=== PATIENT | male | born 1960 | race Caucasian/White ===

== ENCOUNTER 2017-01-19 10:07 | Observation (INO) ==
[2017-01-19 11:03] LABS: Basophils % 0.2 %; Eosinophils % 0.3 %; Hematocrit 27.9 % (37.5-50.1); Hemoglobin 8.4 g/dL (12.9-16.9); Immature Granulocytes % 0.6 % (0-4); Lymphocytes # 0.7 K/mcL (0.6-4.6); Lymphocytes % 6.3 %; Mean Corpuscular HGB Conc 30.1 g/dL (31.6-35.5); Mean Corpuscular Hemoglobin 29.8 pg (28.0-33.3); Mean Corpuscular Volume 98.9 fL (83.0-100.0); Mean Platelet Volume 11.7 fL (9.4-12.4); Monocytes % 9.9 %; Neutrophils # 8.5 K/mcL (1.6-8.9); Platelet Count 285 K/mcL (140-400); Red Blood Count 2.82 M/mcL (4.19-5.50); Red Cell Distribution Width 20.3 % (11.5-14.5); Segmented Neutrophils % 82.7 %
[2017-01-19 11:12] LABS: INR 1.5; Prothrombin Time 16.7 Seconds (9.4-12.1)
[2017-01-19 11:14] LABS: Activated Partial Thrombo Time 34.9 Seconds (26.0-36.0)
--- NOTE | 2017-01-19 11:14 | Emergency Department Note ---
Disposition Clinical Impression: Rectal bleeding, Weakness generalized, Dehydration, Blood loss anemia Disposition: Admitted As Inpatient Condition: Fair Referrals: Vladimir José MD [Primary Care Provider] - Forms: Work/School Release, ED Satisfaction Letter Time of Disposition: 12:50 General Adult HPI - General Chief complaint: ED Abdominal Pain Stated complaint: abd pain, hematuria Source: patient, EMS Limitations: no limitations Nursing Notes Reviewed: Yes Vital Signs Reviewed: Yes - History of Present Illness HPI Narrative: 56-year-old male presents to the emergency department with blood in his stool. 3 weeks ago he had a fistula repair that went from his colon to bladder at [facility]. Today they noticed blood in his stool. He is currently at [facility]. Patient denies any abdominal pain. He reports having a Gooden catheter until about 3 days ago and ever since they removed it he has felt generally weak but no other symptoms. He has not had any vomiting, new abdominal pain or fevers at home. He denies any cough or respiratory complaints. Denies any rectal pain or penile pain. Denies any headache or neck pain. Patient reports history of gallbladder removal and multiple hernia repairs. He reports when they went in to fix his fistula may also did some procedure on his colon but they are unsure what it was for. He has no history of cancer. He is on Coumadin due to a aortic valve replacement. He has been taking his Coumadin. Pain Scale: 4 - Related Data Home Medications Medication Instructions Recorded Confirmed Aspirin [Adult Low Dose Aspirin EC] 81 mg PO 12/06/15 Blood Pressure Pills 12/06/15 Furosemide [Lasix] 12/06/15 Previous Rx's Medication Instructions Recorded Benzonatate [Tessalon] 200 mg PO TID PRN #30 capsule 12/06/15 GuaiFENesin ER [Mucinex] 1,200 mg PO BID #20 tbbp.12hr 12/06/15 cephALEXin [Keflex] 500 mg PO QID #40 capsule 12/06/15 Albuterol Sulfate [Albuterol 2 puff IH Q4HR PRN #1 unit 12/14/15 Inhaler] predniSONE [Prednisone] 40 mg PO DAILY #10 tablet 12/14/15 Erythromycin OPTH Oint 0.5 inch RIGHT EYE QID 7 Days 02/23/16 [Erythromycin] Allergies Allergy/AdvReac Type Severity Reaction Status Date / Time No Known Allergies Allergy Verified 12/06/15 10:21 All systems ED: reviewed and negative except as stated. Constitutional: Denies: fever, chills Cardiovascular: Denies: chest pain Respiratory: Denies: cough, dyspnea Gastrointestinal: Reports: abdominal pain (Occasional, not currently), hematochezia. Denies: nausea, vomiting Genitourinary: Denies: urgency, dysuria Neurological: Denies: headache, weakness, numbness Past Medical History - Past Medical History Attestation: Yes The following information was validated with the patient. Medical history: Reports: CHF, coronary artery disease, CVA, renal disease, other Surgical history: Reports: heart valve replacement (mechanical valve) Psychiatric history: Reports: no psych history - Social History Smoking Status: Never smoker Smokeless Tobacco Status: No Alcohol use: Reports: none Drug use: Reports: none Physical Exam General: Chronically ill-appearing male, resting comfortably in bed Cardiovascular: Regular rate and rhythm. S1, S2. No murmurs, rubs or gallops. Respiratory: Mild coarse breath sounds bilaterally. No respiratory distress. No coughing Abdomen: Abdomen is soft without any guarding, rebound or rigidity. His midline incision is well-healed with a scab without any drainage, discharge or erythema. Abdomen is slightly distended but nontender. He has other previous surgical incisions that are well healed and old. No palpable hernias. Eyes: Conjunctiva clear but do appear pale HENT: Dry mucous membranes but no other abnormalities. Poor dentition Neuro: Patient is able to lift his legs off the bed without any weakness or asymmetry. Normal and symmetric upper extremity strength throughout. Alert and oriented 3 Musculoskeletal: No joint tenderness or swelling Skin: Skin appears pale. Dry. No pathologic lesions. A small amount of bruising on his abdomen likely from Lovenox. Psych: Appropriate - General Limitations: no limitations General appearance: alert, in no apparent distress Course - Reevaluation(s) Reevaluation #1: D/W Dr. Peterson and he agrees to admit for serial H/H and monitor bleeding. Time: 12:47 Vital Signs Temperature 97.9 F 01/19/17 10:10 Pulse Rate 60 01/19/17 10:10 Respiratory Rate 20 01/19/17 10:10 Blood Pressure 121/73 01/19/17 10:10 O2 Sat by Pulse Oximetry 100 01/19/17 10:10 Temperature 97.9 F 01/19/17 10:10 Pulse Rate 65 01/19/17 12:30 Respiratory Rate 22 01/19/17 12:30 Blood Pressure 126/76 01/19/17 12:30 O2 Sat by Pulse Oximetry 95 01/19/17 12:30 Oxygen Delivery Oxygen Delivery Room Air Medical Decision Making - Lab Data Result diagrams: 01/19/17 10:56 01/19/17 10:56 Lab Results 01/19/17 01/19/17 01/19/17 Range/Units 10:25 10:56 10:56 WBC 10.3 (4.3-11.1) K/mcL RBC 2.82 L (4.19-5.50) M/mcL Hgb 8.4 L (12.9-16.9) g/dL Hct 27.9 L (37.5-50.1) % MCV 98.9 (83.0-100.0) fL MCH 29.8 (28.0-33.3) pg MCHC 30.1 L (31.6-35.5) g/dL RDW 20.3 H (11.5-14.5) % Plt Count 285 (140-400) K/mcL MPV 11.7 (9.4-12.4) fL Immature Gran % 0.6 (0-4) % Seg Neutrophils % 82.7 % Lymphocytes % 6.3 % Monocytes % 9.9 % Eosinophils % 0.3 % Basophils % 0.2 % Neutrophils # 8.5 (1.6-8.9) K/mcL Lymphocytes # 0.7 (0.6-4.6) K/mcL Monocytes # 1.0 (0.0-1.3) K/mcL Eosinophils # 0.0 (0.0-0.6) K/mcL Basophils # 0.0 (0.0-0.2) K/mcL PT 16.7 H (9.4-12.1) Seconds INR 1.5 APTT 34.9 (26.0-36.0) Seconds Sodium (136-145) mEq/L Potassium (3.5-4.5) mEq/L Chloride (98-109) mEq/L Carbon Dioxide (19-29) mEq/L BUN (8-26) mg/dL Creatinine (0.72-1.25) mg/dL Est GFR ( Amer) (> 60) Est GFR (Non-Af Amer) (> 60) BUN/Creatinine Ratio (6-26) Glucose (70-99) mg/dL Calculated Osmolality (280-300) Calcium (8.6-10.8) mg/dL Stool Occult Blood Positive A (Negative) Blood Type Antibody Screen 01/19/17 01/19/17 Range/Units 10:56 10:56 WBC (4.3-11.1) K/mcL RBC (4.19-5.50) M/mcL Hgb (12.9-16.9) g/dL Hct (37.5-50.1) % MCV (83.0-100.0) fL MCH (28.0-33.3) pg MCHC (31.6-35.5) g/dL RDW (11.5-14.5) % Plt Count (140-400) K/mcL MPV (9.4-12.4) fL Immature Gran % (0-4) % Seg Neutrophils % % Lymphocytes % % Monocytes % % Eosinophils % % Basophils % % Neutrophils # (1.6-8.9) K/mcL Lymphocytes # (0.6-4.6) K/mcL Monocytes # (0.0-1.3) K/mcL Eosinophils # (0.0-0.6) K/mcL Basophils # (0.0-0.2) K/mcL PT (9.4-12.1) Seconds INR APTT (26.0-36.0) Seconds Sodium 138 (136-145) mEq/L Potassium 4.0 (3.5-4.5) mEq/L Chloride 102 (98-109) mEq/L Carbon Dioxide 29 (19-29) mEq/L BUN 16 (8-26) mg/dL Creatinine 1.53 H (0.72-1.25) mg/dL Est GFR ( Amer) 57 L (> 60) Est GFR (Non-Af Amer) 47 L (> 60) BUN/Creatinine Ratio 10 (6-26) Glucose 109 H (70-99) mg/dL Calculated Osmolality 288 (280-300) Calcium 8.7 (8.6-10.8) mg/dL Stool Occult Blood (Negative) Blood Type O POSITIVE Antibody Screen NEGATIVE Attestation Statement - Attestation Attestation: I examined this patient and my medical decision-making was reviewed with the SURGICAL CONSULTANT/PA/Advanced Practice Nurse/Resident Physician. I agree with the documented findings, disposition and treatment plan as described except to the extent set forth below. 56-year-old male presents because of rectal bleeding and generalized weakness. 3 weeks ago he underwent repair of a colovesicular fistula had [facility]. He does have a history of mechanical heart valve replacement and is dependent on anticoagulation. He is off his Coumadin but currently on daily Lovenox injection. Today he has had several episodes of rectal bleeding. Complains of generalized fatigue and generalized weakness that has been issue for the past several days. No worsening of his baseline abdominal pain. No dysuria or hematuria. Gooden catheter removed several days ago and he has been able to urinate without difficulty. Denies diarrhea. No constipation. No vomiting. Pleasant male in no apparent distress. Oropharynx extremities remains very dry. Neck is supple. Chest clear to auscultation bilaterally. Cardiac exam regular. Mechanical valve is heard briskly in the right upper sternal border Abdomen soft and nondistended. Mild tenderness over the surgical site. No distention. Bowel sounds are normal throughout. No abnormal erythema around the surgical site. Hemoglobin was 8.4 which was down from 11.5 one month ago. Uncertain as to what his most recent postoperative hemoglobin was [facility]. Case was discussed with his colorectal surgeon at [facility]. They recommended admission to our hospital for serial hemoglobins and notify him that he has escalation of the bleeding Case was discussed with Dr. Peterson who accepted.
[2017-01-19 11:16] LABS: Calcium 8.7 mg/dL (8.6-10.8)
[2017-01-19] MEDS ORDERED: 0.9 % Sodium Chloride 500 ML IVC ONE (11:43)
--- NOTE | 2017-01-19 13:35 | Internal Med History&Physical ---
<CurtPedroVeronica J - Last Filed: 01/19/17 14:18> Date of Encounter: 01/19/17 Time of Encounter: 13:35 Assessment and Plan (1) Blood loss anemia Current visit: Yes Status: Acute presented with 2 episodes of melena in the last week. Hgb 8.4 (last known pre- op Hgb 11.5 12/2016). Stool occult positive in the ED. ED physician spoke with [facility] colo-rectal Surgeon and chirag to keep at [place] for now, monitor H&H. Will need to be transferred to [facility] if Hgb dropping or active bleeding. Hemodynamically stable. Holding home coumadin, ASA. Clear liquid diet, monitor H &H, transfuse for Hgb less than 8 (2) [place]-vesical fistula Current visit: Yes Status: Acute per hx. S/p repair 01/02/[address] [facility] pending (3) Aortic valve replaced Current visit: Yes Status: Acute per hx. Holding coumadin with possible GI bleed. Resume when able (4) Chronic systolic (congestive) heart failure Current visit: Yes Status: Acute per hx. With PPM/ICD. EF unknown, no echo on file. CXR with mild vascular congestion, slight pedal edema on exam. Cont home lasix, BB. Holding ASA. BNP pending (5) CVA (cerebral vascular accident) Current visit: Yes Status: Acute per hx 08/2016 with residual slurred speech and left facial droop. Supportive care, plan to return to SNF at discharge. Cont home statin. Holding ASA with GI bleed Qualifiers: CVA mechanism: unspecified Qualified Code(s): I63.9 - Cerebral infarction, unspecified (6) CAD (coronary artery disease) Current visit: Yes Status: Acute per hx with remote CABG. Asymptomatic, denies CP. EKG without acute ST changes. Hold ASA with GI bleed. Cont home BB, statin Qualifiers: Coronary Disease-Associated Artery/Lesion type: bypass graft [place] vs. transplanted heart: [place] heart Associated angina: without angina Qualified Code(s): I25.810 - Atherosclerosis of coronary artery bypass graft(s) without angina pectoris (7) CKD (chronic kidney disease) stage 3, GFR 30-59 ml/min Current visit: Yes Status: Acute per hx. Cr 1.5 which is better than baseline. Intermittently monitor (8) DVT prophylaxis Current visit: Yes Status: Acute SCD Internal Medicine - H&P: HPI Chief complaint: blood in my stool Admitted From: Long-term Nursing Facility Plans for Post Hospital Care: Transfer Residential Facility History of present illness: Mr. Combs is a 56 year old male aortic valve replacement on Coumadin, CVA, atrial fibrillation and hypothyroidism who presented to [facility] on 01/19/2017 from ECF with complaints of 2 episodes of bright red blood per rectum. He was placed in observation status for serial H&H monitoring. Information obtained from chart review and patient report. Per chart review, patient recently had colovesical fistula repair at [facility]> Was sent to SNF for therapy. Patient reports 2 episodes of dark stool from rectum over the last week. He also reports a little blood in the urine. Has some ABD pain from surgical incision, no nausea or vomiting. Says he hasn't felt well since fofana was removed 3 days ago. He is weak and tired. No CP or SOB. Doesn't have much of an appetite Past Med Surg Social Fam HX - Past Medical History Medical history: CHF, coronary artery disease, CVA, renal disease, other Psychiatric history: no psych history - Past Surgical History Surgical History: heart valve replacement (mechanical valve) - Social History Smoking Status: Never smoker Smokeless Tobacco Status: No Alcohol use: none Drug use: none - Additional Family History Additional family history: reviewed and non-contributory Internal Medicine - H&P: Meds Aspirin [Adult Low Dose Aspirin EC] 81 mg PO DAILY 12/06/15 [History] Albuterol Sulfate [Albuterol Inhaler] 2 puff IH Q6H PRN 01/19/17 [History] Amiodarone [Cordarone] 200 mg PO DAILY 01/19/17 [History] Atorvastatin [Lipitor] 40 mg PO HS 01/19/17 [History] Carvedilol [Coreg] 25 mg PO BID 01/19/17 [History] Furosemide [Lasix] 40 mg PO DAILY 01/19/17 [History] Levothyroxine Sodium [Levo-T] 100 mcg PO DAILY 01/19/17 [History] Potassium Chloride [K-Tab ER] 10 meq PO DAILY 01/19/17 [History] Quetiapine Fumarate [Seroquel] 200 mg PO DAILY 01/19/17 [History] Sertraline [Zoloft] 100 mg PO DAILY 01/19/17 [History] Warfarin [Coumadin] 2 mg PO DAILY 01/19/17 [History] Allergies No Known Allergies Allergy (Verified 12/06/15 10:21) All Systems PM: A 10-system review of systems was performed and is negative for pertinent findings except as documented above in the HPI. - Constitutional Constitutional: fatigue, no chills, no fever(s), no night sweats - EENT Eyes: no change in vision, no discharge, no pain, no photophobia Ears: no ear discharge, no ear pain, no tinnitus Nose, mouth and throat: no dysphagia, no nasal discharge, no neck pain, no sore throat - Cardiovascular Cardiovascular ROS IM: no chest pain, no diaphoresis, no dyspnea, no lightheadedness, no palpitations, no syncope - Respiratory Respiratory: no cough, no dyspnea, no wheezing, no excessive phlegm production - Gastrointestinal Gastrointestinal: melena, no abdominal pain, no diarrhea, no hematemesis, no hematochezia, no nausea, no vomiting - Genitourinary Genitourinary ROS male: hematuria - Musculoskeletal Musculoskeletal ROS IM: no numbness, no tingling - Integumentary Integumentary IM: no rash, no unusual bruising - Neurological Neurological ROS: no confusion, no convulsions, no focal weakness, no numbness, no tingling, no tremor(s) - Hematologic/Lymphatic Hematologic/Lymphatic: no easy bruising - Constitutional Vitals: Temp Pulse Resp BP Pulse Ox 97.9 F 65 22 126/76 95 01/19/17 10:10 01/19/17 12:30 01/19/17 12:30 01/19/17 12:30 01/19/17 12:30 General appearance: Present: A&O X 3, no acute distress - Head Head exam: Present: atraumatic, normocephalic - Eye Eye exam: Present: PERRL, conjuntiva pink, sclera anicteric Pupils: Present: PERRL - Neck Neck exam general surgery: Present: supple, trachea midline. Absent: lymphadenopathy - Respiratory Respiratory exam: Present: CTAB. Absent: accessory muscle use, rales, rhonchi, wheezes - Cardiovascular Cardiovascular exam: Present: clicks, RRR, +S1, +S2. Absent: diastolic murmur, gallop, rubs, systolic murmur Additional comments: left chest PPM - GI/Abdominal GI/Abdominal exam: Present: distended, hernia, normal bowel sounds, soft, tenderness, no peritoneal signs Additional comments: irregular contour, healing lower mid-line ABD incision - Extremities Exam Extremities exam: Present: warm, radial pulses palpable and symetrical. Absent : calf tenderness, cyanotic, pedal edema - Neurological Exam Neurological exam: Present: CN II-XII intact, oriented X3, no focal deficits. Absent: pronater drift, facial droop, speech deficit - Skin Skin exam: Present: dry, intact, pallor Internal Med - H&P Results - Labs CBC & Chem 7: 01/19/17 10:56 01/19/17 10:56 <Maik Peterson - Last Filed: 01/19/17 16:36> Date of Encounter: 01/19/17 Time of Encounter: 15:00 Internal Medicine - H&P: HPI History of present illness: Mr. Combs is a 56 year old male All Systems PM: A 10-system review of systems was performed and is negative for pertinent findings except as documented above in the HPI. - Constitutional Vitals: Temp Pulse Resp BP Pulse Ox 98.5 F 115 18 120/73 96 01/19/17 14:25 01/19/17 14:25 01/19/17 14:25 01/19/17 14:25 01/19/17 14:25 Internal Med - H&P Results - Labs CBC & Chem 7: 01/19/17 10:56 01/19/17 10:56 - Attending Attestation I examined this patient and my medical decision-making was reviewed with the nurse practitioner. I agree with the documented history of present illness, review of systems, past medical, surgical social and family histories and examination findings, disposition and treatment plan as described above except to any changes set forth below. 56-year-old male patient who recently underwent colovesical fistula repair at [facility] presented to the ER with complaints of rectal bleeding that began this morning. He had been doing well post surgery which was done on January 02. He denies any fever chills or night sweats. He has some lower abdominal discomfort which is ongoing since his surgery and that has not necessarily worsened. He denies any diarrhea. No hematemesis. No nausea or vomiting. Patient has a mechanical aortic valve and takes Coumadin for anticoagulation. On examination, patient appears pale, is awake and alert. Heart sounds and lung sounds are within normal limits. Abdominal examination shows tenderness in the lower abdominal quadrants. Normal bowel sounds. Acute lower GI bleeding: Monitor blood counts. Consult GI. Will get CT scan of the abdomen. The ER doctor discussed the case with the patient's surgeon at [facility]. At this time to recommend observing the patient and monitor blood counts and transfusing as needed. However, patient is on Coumadin and his INR is currently subtherapeutic. At this time GI recommends holding off on heparin and Coumadin when they evaluate the patient. We will follow along closely. History of mechanical aortic valve: INR subtherapeutic. Hold heparin and Coumadin for now due to GI bleed. Recent colovesical fistula repair: Recovering well post surgery. Keep nothing by mouth for now due to acute GI bleed. We will treat pain symptomatically. Chronic systolic congestive heart failure: Continue home medications. Not in acute exacerbation. Chronic kidney disease stage III: Creatinine appears to be better than his baseline. Will follow renal function closely. Acute blood loss anemia: Hemoglobin is 8.4. We will monitor blood counts closely and transfuse as needed. This document has been at least partially created by [employer] recognition technology by Dr. Peterson. Errors in grammar, wording or other phrases may exist. If errors are found after the documentation is signed, they will be addressed individually in the addendum section of this document when appropriate.
[2017-01-19] MEDS ORDERED: *HR* Morphine 2 MG/ML SYRINGE IVP PRN (14:36)
[2017-01-19] MEDS ORDERED: Ondansetron 4 MG/2 ML VIAL IVP PRN (14:36)
[2017-01-19] MEDS ORDERED: 0.9 % Sodium Chloride 500 ML ONE (17:36)
[2017-01-19] MEDS ORDERED: 0.9 % Sodium Chloride 1,000 ML IVC SCH (17:45)
[2017-01-19 19:07] VITALS: BP 102/63
--- NOTE | 2017-01-19 20:38 | Event Note ---
Date of Encounter: 01/19/17 Time of Encounter: 20:[address] Canales and he does not recommend C-scope at this time with recent surgery. Also concerned for bleeding with starting heparin gtt. Recommends patient be transferred back to [facility]. Called [facility] transfer center and patient was accepted. Transportation to be arranged
[2017-01-19] MEDS ORDERED: Pantoprazole 40 MG VIAL IVP SCH (21:00)
[2017-01-19] MEDS ORDERED: Pantoprazole 40 MG in 0.9 % Sodium Chloride 50 ML IVPB SCH (21:00)
[2017-01-19 21:01] LABS: Hematocrit 26.8 % (37.5-50.1); Hemoglobin 8.2 g/dL (12.9-16.9)
[2017-01-20] MEDS ORDERED: *HR* Amiodarone 200 MG TABLET PO SCH (09:00)
[2017-01-20] MEDS ORDERED: Furosemide 40 MG TABLET PO SCH (09:00)
== END 2017-01-19 20:45 | disposition short-term general hospital (02) ==
LOC: EMEROO 10:07 → 3BNU 10:07 → 3ANU 13:31
PROVIDERS: ADMIT Internal Medicine; ATTEND Registered Nurse

== ENCOUNTER 2017-01-26 13:24 | Inpatient (IN) ==
[2017-01-26] MEDS ORDERED: Ipratropium/Albuterol Neb 3 ML IH ONE (13:56)
--- NOTE | 2017-01-26 13:56 | Emergency Department Note ---
Disposition Clinical Impression: CHF (congestive heart failure) Qualifiers: Congestive heart failure type: combined Congestive heart failure chronicity: acute on chronic Qualified Code(s): I50.43 - Acute on chronic combined systolic (congestive) and diastolic (congestive) heart failure Disposition: Admitted As Inpatient Condition: Good Time of Disposition: 17:36 General Adult HPI - General Chief complaint: ED Weakness Stated complaint: weakness Source: patient, EMS Limitations: no limitations Nursing Notes Reviewed: Yes Vital Signs Reviewed: Yes - History of Present Illness HPI Narrative: Increased abdominal girth over the past day. 10 pound weight gain over the past day. She reporting increased weakness and being tired. Has had a recent abdominal surgery for an abdominal fistula. Denies any fevers denies any abdominal pain denies any nausea vomiting or diarrhea. Pain Scale: 8 - Related Data Home Medications Medication Instructions Recorded Confirmed Albuterol Sulfate [Albuterol 2 puff IH Q6H PRN 01/19/17 01/26/17 Inhaler] Amiodarone [Cordarone] 200 mg PO HS 01/19/17 01/26/17 Atorvastatin [Lipitor] 40 mg PO HS 01/19/17 01/26/17 Carvedilol [Coreg] 25 mg PO BID 01/19/17 01/26/17 Levothyroxine Sodium [Levo-T] 100 mcg PO QAM 01/19/17 01/26/17 Potassium Chloride [K-Tab ER] 10 meq PO DAILY 01/19/17 01/26/17 Sertraline [Zoloft] 100 mg PO DAILY 01/19/17 01/26/17 Warfarin [Coumadin] 2 mg PO QPM 01/19/17 01/26/17 Acetaminophen [Tylenol] 325 - 650 mg PO Q4H PRN 01/26/17 01/26/17 Aspirin 81 mg PO DAILY 01/26/17 01/26/17 Enoxaparin [Lovenox] 73 mg SQ Q12H 01/26/17 01/26/17 Ergocalciferol (VITAMIN D2) 50,000 unit PO TH 01/26/17 01/26/17 [Vitamin D2] Furosemide [Lasix] 20 mg PO DAILY 01/26/17 01/26/17 Melatonin 5 mg PO HS PRN 01/26/17 01/26/17 Multivitamin with Minerals/Lut 1 each PO DAILY 01/26/17 01/26/17 [Cerovite Senior Tablet] Nitroglycerin [Nitrostat] 0.4 mg SL Q5M PRN 01/26/17 01/26/17 Oxycodone HCl/Acetaminophen 1 - 2 each PO Q4H PRN 01/26/17 01/26/17 [Percocet 5-325 mg Tablet] Quetiapine Fumarate [SEROquel] 100 mg PO DAILY 01/26/17 01/26/17 Allergies Allergy/AdvReac Type Severity Reaction Status Date / Time No Known Allergies Allergy Verified 01/26/17 13:35 All systems ED: reviewed and negative except as stated. Constitutional: Reports: weakness. Denies: fever, chills ENT ED: Denies: throat pain, congestion Cardiovascular: Denies: chest pain, palpitations, syncope Respiratory: Denies: cough, dyspnea, wheezes Gastrointestinal: Denies: abdominal pain, nausea, vomiting Genitourinary: Denies: urgency, dysuria, frequency, hematuria, discharge Musculoskeletal: Denies: back pain, neck pain Integumentary: Denies: rash, abrasion Neurological: Denies: headache, weakness Past Medical History - Past Medical History Attestation: Yes The following information was validated with the patient. Medical history: Reports: CHF, coronary artery disease, CVA, renal disease, other Surgical history: Reports: heart valve replacement Psychiatric history: Reports: no psych history - Social History Smoking Status: Never smoker Smokeless Tobacco Status: No Alcohol use: Reports: none Drug use: Reports: none Physical Exam - General Limitations: no limitations General appearance: alert, in no apparent distress - Head Head exam: atraumatic, normocephalic, normal inspection - Eye Eye exam: Present: normal appearance, PERRL, EOMI. Absent: scleral icterus, conjunctival injection - ENT ENT exam: normal exam, normal oropharynx, mucous membranes dry - Neck Neck exam: Present: normal inspection, full ROM, trachea midline. Absent: tenderness, meningismus, lymphadenopathy - Chest Chest inspection: Present: normal inspection, symmetric chest wall rise - Respiratory Respiratory exam: Present: wheezes (Upper lobes bilaterally. Moreover grunting noise.). Absent: respiratory distress - Cardiovascular Cardiovascular exam: Present: regular rate, normal rhythm, normal heart sounds - Abdominal Exam Abdominal exam: Present: soft, Non-Tender, distention (No fluid wave present.), normal bowel sounds, other (Well-healing incision to lower portion of abdomen.) . Absent: tenderness, guarding, rebound, rigidity, organomegaly - Extremities Exam Extremities exam: Present: normal inspection, full ROM, normal capillary refill. Absent: tenderness, pedal edema - Neurological Exam Neurological exam: Present: alert, oriented X3 - Psychiatric Psychiatric exam: Present: normal affect, normal mood - Skin Skin exam: Present: warm, dry, intact, normal color. Absent: rash, diaphoresis Course Course Narrative: Male patient sent from [facility] for increased abdominal girth and gaining 10 pounds overnight. His insight a recent surgical history in December of abdominal surgery for an abdominal fistula. Patient has no complaints other than feeling weak and tired. He denies shortness of breath however he does have wheezing bilaterally in his upper lobes. He states that he just feels weak. Denies any fevers chills or coughs or shortness of breath. He denies any chest pain or abdominal pain. He denies any nausea vomiting or diarrhea. He is reporting increase in his abdominal girth over the past day. He does have a history of CHF. His lung sounds are clear in the lower lobes however does have a harsh sound in his upper lobes bilaterally. Chest x-ray showed pulmonary edema. Patient's BNP was as high as every been in the 1999s. We will give patient Lasix while he is here and admitted to the hospital. His lab work is grossly unremarkable other than the increased BNP. Patient does appear tired. He does not appear in any distress. His abdomen is distended but there is no pain on palpation. Vital Signs Temperature 98.5 F 01/26/17 13:26 Pulse Rate 65 01/26/17 13:26 Respiratory Rate 24 01/26/17 13:26 Blood Pressure 130/86 01/26/17 13:26 O2 Sat by Pulse Oximetry 95 01/26/17 13:26 Temperature 98.5 F 01/26/17 13:26 Pulse Rate 60 01/26/17 16:15 Respiratory Rate 22 01/26/17 16:15 Blood Pressure 137/83 01/26/17 16:15 O2 Sat by Pulse Oximetry 96 01/26/17 16:15 Oxygen Delivery Oxygen Delivery Room Air Medical Decision Making - Medical Records Medical records reviewed: Yes I reviewed the patient's medical records. - Lab Data Lab results reviewed: Yes I reviewed the patient's lab results. Result diagrams: 01/26/17 14:08 01/26/17 14:08 Lab Results 01/26/17 01/26/17 01/26/17 Range/Units 13:36 14:08 14:08 WBC (4.3-11.1) K/mcL RBC (4.19-5.50) M/mcL Hgb (12.9-16.9) g/dL Hct (37.5-50.1) % MCV (83.0-100.0) fL MCH (28.0-33.3) pg MCHC (31.6-35.5) g/dL RDW (11.5-14.5) % Plt Count (140-400) K/mcL MPV (9.4-12.4) fL Immature Gran % (0-4) % Seg Neutrophils % % Lymphocytes % % Monocytes % % Eosinophils % % Basophils % % Neutrophils # (1.6-8.9) K/mcL Lymphocytes # (0.6-4.6) K/mcL Monocytes # (0.0-1.3) K/mcL Eosinophils # (0.0-0.6) K/mcL Basophils # (0.0-0.2) K/mcL Sodium (136-145) mEq/L Potassium (3.5-4.5) mEq/L Chloride (98-109) mEq/L Carbon Dioxide (19-29) mEq/L BUN (8-26) mg/dL Creatinine (0.72-1.25) mg/dL Est GFR ( Amer) (> 60) Est GFR (Non-Af Amer) (> 60) BUN/Creatinine Ratio (6-26) Glucose (70-99) mg/dL POC Glucose 99 H (58-89) Calculated Osmolality (280-300) Calcium (8.6-10.8) mg/dL Phosphorus 2.7 (2.3-4.7) mg/dL Magnesium 1.7 (1.6-2.6) mg/dL Total Bilirubin (0.2-1.2) mg/dL AST (5-34) Units/L ALT (0-55) Units/L Alkaline Phosphatase (38-126) Units/L Troponin I (0-0.03) ng/mL B-Natriuretic Peptide 2501 H (0-100) pg/mL Serum Total Protein (6.0-8.3) g/dL Albumin (3.5-5.0) g/dL Globulin (2.4-3.5) g/dL Albumin/Globulin Ratio (1.1-2.2) Stool Occult Blood (Negative) 01/26/17 01/26/17 01/26/17 Range/Units 14:08 14:08 14:08 WBC 8.0 (4.3-11.1) K/mcL RBC 3.27 L (4.19-5.50) M/mcL Hgb 9.7 L D (12.9-16.9) g/dL Hct 31.3 L (37.5-50.1) % MCV 95.7 (83.0-100.0) fL MCH 29.7 (28.0-33.3) pg MCHC 31.0 L (31.6-35.5) g/dL RDW 18.4 H (11.5-14.5) % Plt Count 295 (140-400) K/mcL MPV 11.6 (9.4-12.4) fL Immature Gran % 0.9 (0-4) % Seg Neutrophils % 80.7 % Lymphocytes % 9.4 % Monocytes % 8.5 % Eosinophils % 0.4 % Basophils % 0.1 % Neutrophils # 6.5 (1.6-8.9) K/mcL Lymphocytes # 0.8 (0.6-4.6) K/mcL Monocytes # 0.7 (0.0-1.3) K/mcL Eosinophils # 0.0 (0.0-0.6) K/mcL Basophils # 0.0 (0.0-0.2) K/mcL Sodium 134 L (136-145) mEq/L Potassium 4.4 (3.5-4.5) mEq/L Chloride 104 (98-109) mEq/L Carbon Dioxide 24 (19-29) mEq/L BUN 23 (8-26) mg/dL Creatinine 1.48 H (0.72-1.25) mg/dL Est GFR ( Amer) 59 L (> 60) Est GFR (Non-Af Amer) 49 L (> 60) BUN/Creatinine Ratio 16 (6-26) Glucose 101 H (70-99) mg/dL POC Glucose (58-89) Calculated Osmolality 282 (280-300) Calcium 8.1 L (8.6-10.8) mg/dL Phosphorus (2.3-4.7) mg/dL Magnesium (1.6-2.6) mg/dL Total Bilirubin 1.8 H (0.2-1.2) mg/dL AST 98 H (5-34) Units/L ALT 65 H (0-55) Units/L Alkaline Phosphatase 390 H (38-126) Units/L Troponin I 0.01 (0-0.03) ng/mL B-Natriuretic Peptide (0-100) pg/mL Serum Total Protein 6.1 (6.0-8.3) g/dL Albumin 2.0 L (3.5-5.0) g/dL Globulin 4.1 H (2.4-3.5) g/dL Albumin/Globulin Ratio 0.5 L (1.1-2.2) Stool Occult Blood (Negative) 01/26/17 Range/Units 14:56 WBC (4.3-11.1) K/mcL RBC (4.19-5.50) M/mcL Hgb (12.9-16.9) g/dL Hct (37.5-50.1) % MCV (83.0-100.0) fL MCH (28.0-33.3) pg MCHC (31.6-35.5) g/dL RDW (11.5-14.5) % Plt Count (140-400) K/mcL MPV (9.4-12.4) fL Immature Gran % (0-4) % Seg Neutrophils % % Lymphocytes % % Monocytes % % Eosinophils % % Basophils % % Neutrophils # (1.6-8.9) K/mcL Lymphocytes # (0.6-4.6) K/mcL Monocytes # (0.0-1.3) K/mcL Eosinophils # (0.0-0.6) K/mcL Basophils # (0.0-0.2) K/mcL Sodium (136-145) mEq/L Potassium (3.5-4.5) mEq/L Chloride (98-109) mEq/L Carbon Dioxide (19-29) mEq/L BUN (8-26) mg/dL Creatinine (0.72-1.25) mg/dL Est GFR ( Amer) (> 60) Est GFR (Non-Af Amer) (> 60) BUN/Creatinine Ratio (6-26) Glucose (70-99) mg/dL POC Glucose (58-89) Calculated Osmolality (280-300) Calcium (8.6-10.8) mg/dL Phosphorus (2.3-4.7) mg/dL Magnesium (1.6-2.6) mg/dL Total Bilirubin (0.2-1.2) mg/dL AST (5-34) Units/L ALT (0-55) Units/L Alkaline Phosphatase (38-126) Units/L Troponin I (0-0.03) ng/mL B-Natriuretic Peptide (0-100) pg/mL Serum Total Protein (6.0-8.3) g/dL Albumin (3.5-5.0) g/dL Globulin (2.4-3.5) g/dL Albumin/Globulin Ratio (1.1-2.2) Stool Occult Blood Negative (Negative) - Radiology Data Radiology results reviewed: Yes I reviewed the patient's radiology results. Chest X-Ray 01/26/17 13:46 IMPRESSION: 1. Cardiomegaly and mild pulmonary edema suggesting CHF. 2. Suspect small left pleural effusion. D/ / Aissatou Levy MD / Aissatou Levy MD Interpreting Provider: Aissatou Levy MD - EKG Data EKG #1 EKG attestation: Yes I reviewed and interpreted this EKG. EKG results narrative: Ventricularly paced rhythm at a rate of 62. [place] interval is 163. QRS duration is 185. QT is 5 and on. QTC is 5:15. No signs of acute ischemia. No significant change from previous EKG dated 09/03/2016. Attestation Statement - Attestation Attestation: I examined this patient and my medical decision-making was reviewed with the [employer]/PA/Advanced Practice Nurse/Resident Physician. I agree with the documented findings, disposition and treatment plan as described except to the extent set forth below. Patient ED with shortness of breath and weight gain. Family states he has gained 10 pounds in the past day or 2. Mild shortness of breath. Patient recently admitted at [facility] for a bladder repair and a GI bleed. Has been back to the correction since Monday. On exam he has diffuse rales and wheezes. Edema upper and lower extremities. Plan. Incision on her abdomen is well- healed. His abdomen is soft. Appears fluid overloaded. BNP is doubled from his highest prior. Lasix and admit.
[2017-01-26 14:16] LABS: Basophils % 0.1 %; Eosinophils % 0.4 %; Hematocrit 31.3 % (37.5-50.1); Hemoglobin 9.7 g/dL (12.9-16.9); Immature Granulocytes % 0.9 % (0-4); Lymphocytes # 0.8 K/mcL (0.6-4.6); Lymphocytes % 9.4 %; Mean Corpuscular Hemoglobin 29.7 pg (28.0-33.3); Mean Corpuscular Volume 95.7 fL (83.0-100.0); Mean Platelet Volume 11.6 fL (9.4-12.4); Monocytes # 0.7 K/mcL (0.0-1.3); Monocytes % 8.5 %; Platelet Count 295 K/mcL (140-400); Red Blood Count 3.27 M/mcL (4.19-5.50); Red Cell Distribution Width 18.4 % (11.5-14.5); Segmented Neutrophils % 80.7 %
[2017-01-26 14:27] LABS: Magnesium 1.7 mg/dL (1.6-2.6); Phosphorous 2.7 mg/dL (2.3-4.7)
[2017-01-26 14:30] LABS: Albumin/Globulin Ratio 0.5 (1.1-2.2); Bilirubin,Total 1.8 mg/dL (0.2-1.2); Calcium 8.1 mg/dL (8.6-10.8); Globulin 4.1 g/dL (2.4-3.5); Potassium 4.4 mEq/L (3.5-4.5); Total Protein 6.1 g/dL (6.0-8.3)
[2017-01-26] MEDS ORDERED: Furosemide 40 MG/4 ML VIAL IVP ONE (14:50)
[2017-01-26 15:02] LABS: Neutrophils # 6.5 K/mcL (1.6-8.9)
[2017-01-26] MEDS ORDERED: Naloxone 0.4 MG/ML INJ IVP PRN (16:50)
[2017-01-26] MEDS ORDERED: *HR* HYDROcodone/Acet 5/325 mg TABLET PO PRN (16:50)
[2017-01-26] MEDS ORDERED: Acetaminophen 325 MG TABLET PO PRN (16:50)
[2017-01-26] MEDS ORDERED: Nitroglycerin 0.4 MG TAB.SUBL SL PRN (16:53)
--- NOTE | 2017-01-26 17:09 | Internal Med History&Physical ---
Date of Encounter: 01/26/17 Time of Encounter: 16:00 Assessment and Plan (1) Acute on chronic systolic (congestive) heart failure Current visit: Yes Status: Acute 1 patient has history of systolic heart failure. He is on Lasix and he has been experiencing increase in abdominal girth and 10 pound weight gain. Has been experiencing fatigue weakness and shortness of breath. Chest x-ray did reveal pulmonary congestion. We will give IV Lasix and diuresed patient 2 Will monitor intake and output daily weights 3 1500 mL fluid restriction 4 low sodium diet (2) Aortic valve replaced Current visit: No Status: Acute 1 continue with Coumadin monitor INR dailyINR goal 2-3 (3) CAD (coronary artery disease) Current visit: No Status: Acute 1 continue with aspirin and statin Qualifiers: Coronary Disease-Associated Artery/Lesion type: bypass graft [place] vs. transplanted heart: [place] heart Associated angina: without angina Qualified Code(s): I25.810 - Atherosclerosis of coronary artery bypass graft(s) without angina pectoris (4) CKD (chronic kidney disease) stage 3, GFR 30-59 ml/min Current visit: No Status: Chronic 1 creatinine 1. 48 which appears to be better than Baseline we will continue to monitor creatinine 2. avoid nephrotoxins 3 monitor intake and output daily weight (5) [place]-vesical fistula Current visit: No Status: Acute 1 fever leukocytosis. Patient does have some abdominal distention we will obtain abdominal noncontrast CT to rule out any surgical issues (6) Paroxysmal atrial fibrillation Current visit: No Status: Chronic Continue with amiodarone as well as Coumadin (7) History of CVA (cerebrovascular accident) Current visit: Yes Status: Acute Continue with Coumadin and statin (8) DVT prophylaxis Current visit: No Status: Acute On Coumadin Internal Medicine - H&P: HPI Chief complaint: weakness Admitted From: Emergency Dept Plans for Post Hospital Care: Home History of present illness: Mr. Combs is a 56 year old male with past medical history of hypertension hypothyroid colovesical fistula repair 01/02/17. Valve replacement systolic heart failure pacemaker placement or urinary disease C KD stage III/IV CVA, history of crack cocaine use. According to the patient in the past few days she has been experiencing increased weakness and fatigue. For the past 24 hours she has noted abdominal distention as well as pound weight gain. He denies any fevers chills nausea vomiting or diarrhea. He was presented to the ER with the above complaints. According to ER records BNP was 2501, chest x- ray did show some pulmonary congestion patient was given Lasix. He has been admitted for further workup evaluation presently patient denies any chest pain shortness of breath he is not improving respiratory distress with lung sounds have some faint expiratory wheezes. Heart sounds S1-S2 with a click noted. No murmur rubs gallops noted abdomen is soft round slightly distended +1 edema in the lower extremity. He is hemodynamically stable at this time and review this case Dr. uMrrieta who agrees with plan. Past Med Surg Social Fam HX - Past Medical History Medical history: CHF, coronary artery disease, CVA, renal disease, other Psychiatric history: no psych history - Past Surgical History Surgical History: heart valve replacement - Social History Smoking Status: Never smoker Smokeless Tobacco Status: No Alcohol use: none Drug use: none - Family History Father Living Status: Hx Family Respiratory Disorders: Yes Internal Medicine - H&P: Meds Albuterol Sulfate [Albuterol Inhaler] 2 puff IH Q6H PRN 01/19/17 [History] Amiodarone [Cordarone] 200 mg PO HS 01/19/17 [History] Atorvastatin [Lipitor] 40 mg PO HS 01/19/17 [History] Carvedilol [Coreg] 25 mg PO BID 01/19/17 [History] Levothyroxine Sodium [Levo-T] 100 mcg PO QAM 01/19/17 [History] Potassium Chloride [K-Tab ER] 10 meq PO DAILY 01/19/17 [History] Sertraline [Zoloft] 100 mg PO DAILY 01/19/17 [History] Warfarin [Coumadin] 2 mg PO QPM 01/19/17 [History] Acetaminophen [Tylenol] 325 - 650 mg PO Q4H PRN 01/26/17 [History] Aspirin 81 mg PO DAILY 01/26/17 [History] Enoxaparin [Lovenox] 73 mg SQ Q12H 01/26/17 [History] Ergocalciferol (VITAMIN D2) [Vitamin D2] 50,000 unit PO TH 01/26/17 [History] Furosemide [Lasix] 20 mg PO DAILY 01/26/17 [History] Melatonin 5 mg PO HS PRN 01/26/17 [History] Multivitamin with Minerals/Lut [Cerovite Senior Tablet] 1 each PO DAILY [History] Nitroglycerin [Nitrostat] 0.4 mg SL Q5M PRN 01/26/17 [History] Oxycodone HCl/Acetaminophen [Percocet 5-325 mg Tablet] 1 - 2 each PO Q4H PRN [History] Quetiapine Fumarate [SEROquel] 100 mg PO DAILY 01/26/17 [History] Allergies No Known Allergies Allergy (Verified 01/26/17 13:35) All Systems PM: A 10-system review of systems was performed and is negative for pertinent findings except as documented above in the HPI. - Constitutional Constitutional: fatigue, weakness - Cardiovascular Cardiovascular ROS IM: edema, no chest pain, no diaphoresis, no dyspnea, no lightheadedness, no palpitations, no syncope - Respiratory Respiratory: dyspnea, no cough, no wheezing, no excessive phlegm production - Gastrointestinal Gastrointestinal: no abdominal pain, no diarrhea, no hematemesis, no hematochezia, no melena, no nausea, no vomiting - Musculoskeletal Musculoskeletal ROS IM: no numbness, no tingling - Integumentary Integumentary IM: no rash, no unusual bruising - Neurological Neurological ROS: no confusion, no convulsions, no focal weakness, no numbness, no tingling, no tremor(s) - Hematologic/Lymphatic Hematologic/Lymphatic: no easy bruising - Constitutional Vitals: Temp Pulse Resp BP Pulse Ox 98.5 F 60 22 137/83 96 01/26/17 13:26 01/26/17 16:15 01/26/17 16:48 01/26/17 16:48 01/26/17 16:15 General appearance: Present: A&O X 3, answers questions appropriately - Head Head exam: Present: atraumatic, normocephalic - Eye Eye exam: Present: PERRL, conjuntiva pink, sclera anicteric Pupils: Present: PERRL - Neck Neck exam general surgery: Present: supple, trachea midline. Absent: lymphadenopathy - Respiratory Respiratory exam: Present: wheezes. Absent: accessory muscle use, rales, rhonchi - Cardiovascular Cardiovascular exam: Present: RRR, +S1, +S2. Absent: diastolic murmur, gallop, rubs, systolic murmur - GI/Abdominal GI/Abdominal exam: Present: distended, normal bowel sounds, soft, no peritoneal signs. Absent: tenderness - Extremities Exam Extremities exam: Present: pedal edema, warm, radial pulses palpable and symetrical. Absent: calf tenderness, cyanotic - Neurological Exam Neurological exam: Present: CN II-XII intact, oriented X3, no focal deficits. Absent: pronater drift, facial droop, speech deficit - Skin Skin exam: Present: dry, intact Internal Med - H&P Results - Labs CBC & Chem 7: 01/26/17 14:08 01/26/17 14:08 - EKG Data Prior EKG available for review: yes When compared to previous EKG: there is no significant change EKG comments: 01/26/17 17:13 V paced - Diagnostic Studies Other Images Additional comments: Chest X-Ray 01/26/17 13:46 IMPRESSION: 1. Cardiomegaly and mild pulmonary edema suggesting CHF. 2. Suspect small left pleural effusion. D/ / Aissatou Levy MD / Aissatou Levy MD Interpreting Provider: Aissatou Levy MD
[2017-01-26 17:32] LABS: INR 2.1; Prothrombin Time 22.6 Seconds (9.4-12.1)
[2017-01-26 17:34] LABS: Activated Partial Thrombo Time 44.2 Seconds (26.0-36.0)
--- NOTE | 2017-01-26 17:53 | Event Note ---
Date of Encounter: 01/26/17 Time of Encounter: 17:49 Patient seen and examined with nurse practitioner. Agree with assessment and plan. Acute congestive heart failure due to diastolic dysfunction. Patient recently hospitalized at an outside facility for G.I. bleeding and receive 2 units of blood transfusion in addition to fluid resuscitation. Patient mentioned that he had gained 10 pounds in the past couple days. Patient notices shortness of breath with minimal exertion denies any cough or sputum production fevers chills. Patient will be admitted to the hospital. Lasix 40 mg IV twice a day. Patient had a mechanical awarded valve was audible click. Continue Coumadin INR 2.1. He denies any G.I. bleeding. Stool for occult blood is negative in the emergency room. Abdomen is distended with flank fullness, suspect ascites. No tenderness or rebound tenderness. Patient is full code
[2017-01-26] MEDS ORDERED: Warfarin perPT PO PRN (18:00)
[2017-01-26] MEDS ORDERED: *HR* Warfarin 2 MG TABLET PO SCH (19:45)
[2017-01-26] MEDS: *HR* Amiodarone 200 MG TABLET PO SCH (20:33)
[2017-01-26] MEDS: Furosemide 40 MG/4 ML VIAL IVP SCH (20:34)
[2017-01-27 00:15] LABS: Bilirubin,Urine Negative (Negative); Blood,Urine Small (Negative); Clarity,Urine Clear (Clear); Color,Urine Yellow (Yellow); Glucose,Urine (UA) Normal (Normal); Ketones,Urine Negative (Negative); Leukocyte Esterase,Urine Small (Negative); Nitrite,Urine Negative (Negative); Protein,Urine Negative (Neg-Trace); Specific Gravity,Urine 1.009 (1.010-1.025); Urobilinogen,Urine Normal (Normal)
[2017-01-27 00:18] LABS: Bacteria,Urine Moderate per hpf (None-Few); Hyaline Casts,Urine None Seen per lpf (None-Few); Squamous Epithelial Cell,Urine Few per lpf (None-Few)
[2017-01-27 03:22] LABS: Eosinophils % 0.1 %; Hematocrit 29.6 % (37.5-50.1); Hemoglobin 9.3 g/dL (12.9-16.9); Immature Granulocytes % 0.5 % (0-4); Lymphocytes % 8.3 %; Mean Corpuscular HGB Conc 31.4 g/dL (31.6-35.5); Mean Corpuscular Volume 95.5 fL (83.0-100.0); Monocytes % 8.4 %; Platelet Count 317 K/mcL (140-400); Red Cell Distribution Width 18.5 % (11.5-14.5); Segmented Neutrophils % 82.6 %
[2017-01-27 03:23] LABS: Basophils % 0.1 %; Lymphocytes # 0.8 K/mcL (0.6-4.6); Monocytes # 0.8 K/mcL (0.0-1.3); Neutrophils # 7.7 K/mcL (1.6-8.9)
[2017-01-27 03:31] LABS: INR 1.9; Prothrombin Time 20.4 Seconds (9.4-12.1)
[2017-01-27 03:38] LABS: Calcium 8.2 mg/dL (8.6-10.8); Magnesium 1.6 mg/dL (1.6-2.6); Potassium 4.2 mEq/L (3.5-4.5)
[2017-01-27 03:56] LABS: Platelet Estimate Normal (Normal)
[2017-01-27] MEDS: Furosemide 40 MG/4 ML VIAL IVP SCH (09:02)
[2017-01-27] MEDS: Aspirin 81 MG TAB.CHEW PO SCH (09:02)
--- NOTE | 2017-01-27 10:12 | General Surgery Consult Note ---
<Emmett Eubanks M - Last Filed: 01/27/17 16:48> Date of Encounter: 01/27/17 Medications and Allergies Albuterol Sulfate [Albuterol Inhaler] 2 puff IH Q6H PRN 01/19/17 [History] Amiodarone [Cordarone] 200 mg PO HS 01/19/17 [History] Atorvastatin [Lipitor] 40 mg PO HS 01/19/17 [History] Carvedilol [Coreg] 25 mg PO BID 01/19/17 [History] Levothyroxine Sodium [Levo-T] 100 mcg PO QAM 01/19/17 [History] Potassium Chloride [K-Tab ER] 10 meq PO DAILY 01/19/17 [History] Sertraline [Zoloft] 100 mg PO DAILY 01/19/17 [History] Warfarin [Coumadin] 2 mg PO QPM 01/19/17 [History] Acetaminophen [Tylenol] 325 - 650 mg PO Q4H PRN 01/26/17 [History] Aspirin 81 mg PO DAILY 01/26/17 [History] Enoxaparin [Lovenox] 73 mg SQ Q12H 01/26/17 [History] Ergocalciferol (VITAMIN D2) [Vitamin D2] 50,000 unit PO TH 01/26/17 [History] Furosemide [Lasix] 20 mg PO DAILY 01/26/17 [History] Melatonin 5 mg PO HS PRN 01/26/17 [History] Multivitamin with Minerals/Lut [Cerovite Senior Tablet] 1 each PO DAILY [History] Nitroglycerin [Nitrostat] 0.4 mg SL Q5M PRN 01/26/17 [History] Oxycodone HCl/Acetaminophen [Percocet 5-325 mg Tablet] 1 - 2 each PO Q4H PRN [History] Quetiapine Fumarate [SEROquel] 100 mg PO DAILY 01/26/17 [History] Allergies No Known Allergies Allergy (Verified 01/26/17 13:35) Review of Systems All systems PM: A 10-system review of systems was performed and is negative for pertinent findings except as documented above in the HPI. General Surgery Exam Initial Vital Signs Temp Pulse Resp BP Pulse Ox 98.5 F 65 24 130/86 95 01/26/17 13:26 01/26/17 13:26 01/26/17 13:26 01/26/17 13:26 01/26/17 13:26 Exam Initial Vital Signs Temp Pulse Resp BP Pulse Ox 98.5 F 65 24 130/86 95 01/26/17 13:26 01/26/17 13:26 01/26/17 13:26 01/26/17 13:26 01/26/17 13:26 Results - Labs 01/27/17 03:03 01/27/17 03:03 Abnormal lab results RBC 3.10 M/mcL (4.19-5.50) L 01/27/17 03:03 Hgb 9.3 g/dL (12.9-16.9) L 01/27/17 03:03 Hct 29.6 % (37.5-50.1) L 01/27/17 03:03 MCHC 31.4 g/dL (31.6-35.5) L 01/27/17 03:03 RDW 18.5 % (11.5-14.5) H 01/27/17 03:03 PT 20.4 Seconds (9.4-12.1) H 01/27/17 03:03 APTT 44.2 Seconds (26.0-36.0) H 01/26/17 14:08 Creatinine 1.52 mg/dL (0.72-1.25) H 01/27/17 03:03 Est GFR ( Amer) 57 (> 60) L 01/27/17 03:03 Est GFR (Non-Af Amer) 47 (> 60) L 01/27/17 03:03 POC Glucose 99 (58-89) H 01/26/17 13:36 Calcium 8.2 mg/dL (8.6-10.8) L 01/27/17 03:03 Total Bilirubin 1.8 mg/dL (0.2-1.2) H 01/26/17 14:08 AST 98 Units/L (5-34) H 01/26/17 14:08 ALT 65 Units/L (0-55) H 01/26/17 14:08 Alkaline Phosphatase 390 Units/L (38-126) H 01/26/17 14:08 B-Natriuretic Peptide 2501 pg/mL (0-100) H 01/26/17 14:08 Albumin 2.0 g/dL (3.5-5.0) L 01/26/17 14:08 Globulin 4.1 g/dL (2.4-3.5) H 01/26/17 14:08 Albumin/Globulin Ratio 0.5 (1.1-2.2) L 01/26/17 14:08 Ur Specific [place] 1.009 (1.010-1.025) L 01/26/17 23:35 Urine Blood Small (Negative) H 01/26/17 23:35 Ur Leukocyte Esterase Small (Negative) H 01/26/17 23:35 Urine Microscopic RBC 3-5 per hpf (0-3) H 01/26/17 23:35 Urine Microscopic WBC 5-15 per hpf (0-3) H 01/26/17 23:35 Urine Bacteria Moderate per hpf (None-Few) H 01/26/17 23:35 Ur Culture Indicated? YES (NO) A 01/26/17 23:35 Diabetes panel 01/27/17 Range/Units 03:03 Sodium 138 (136-145) mEq/L Potassium 4.2 (3.5-4.5) mEq/L Chloride 102 (98-109) mEq/L Carbon Dioxide 27 (19-29) mEq/L BUN 24 (8-26) mg/dL Creatinine 1.52 H (0.72-1.25) mg/dL Glucose 94 (70-99) mg/dL Calcium 8.2 L (8.6-10.8) mg/dL Calcium panel 01/27/17 Range/Units 03:03 Calcium 8.2 L (8.6-10.8) mg/dL Pituitary panel 01/27/17 Range/Units 03:03 Sodium 138 (136-145) mEq/L Potassium 4.2 (3.5-4.5) mEq/L Chloride 102 (98-109) mEq/L Carbon Dioxide 27 (19-29) mEq/L BUN 24 (8-26) mg/dL Creatinine 1.52 H (0.72-1.25) mg/dL Glucose 94 (70-99) mg/dL Calcium 8.2 L (8.6-10.8) mg/dL Adrenal panel 01/27/17 Range/Units 03:03 Sodium 138 (136-145) mEq/L Potassium 4.2 (3.5-4.5) mEq/L Chloride 102 (98-109) mEq/L Carbon Dioxide 27 (19-29) mEq/L BUN 24 (8-26) mg/dL Creatinine 1.52 H (0.72-1.25) mg/dL Glucose 94 (70-99) mg/dL Calcium 8.2 L (8.6-10.8) mg/dL All other labs normal. Consult Discharge Plan - Plan Referrals: Mukund Lira MD [Primary Care Provider] - - Attending Attestation I examined this patient and my medical decision-making was reviewed with the MANAGER TECHNICAL SUPPORT/PA/Advanced Practice Nurse/Resident Physician. I agree with the documented findings, disposition and treatment plan as described except to the extent set forth below. Personal review the physical examination and assessment for the patient given the findings of intra-abdominal wall hematoma. Noted recent surgery 3-4 weeks ago regarding repair of a colovesicular fistula. Patient does admit to some abdominal pain in the lower abdominal region. On exam he has positive bowel sounds in the incision is healing well. He has tenderness and possibly a mass palpated in the lower abdominal/pelvic region. I personally reviewed the CT scan images from 01/19/2017 and 01/26/2017 show stability and slight improvement in the size of the hematomas. Recommendation is that he can continue with his oral anticoagulation and that the hematomas will continue to resolve. No other recommendations at this time. We will sign off; thank you. <Yarely,Kavya Rodrigueze - Last Filed: 01/27/17 17:47> Date of Encounter: 01/27/17 Time of Encounter: 09:44 Assessment and Plan (1) Abdominal pain Current Visit: Yes Status: Acute Patient has a recent CVA LMCA stroke likely cardioembolic on 08/24/2016 for which she had a prolonged hospital stay at [facility] and complicated course with GI bleed, complicated diverticulitis with abscess and colovesicular fistula s/p repair, residual dysarthria and right facial droop. Recently discharged from [facility] to [facility] for rehabilitation with long-term Fofana catheter in place that the patient states is changed once a month. Patient reports that he was at [facility] for approximately 5 days and then developed diffuse lower abdominal pain and bloating with 10 lb weigh gain overnight associated fatigue, weakness, and SOB and was transported to [place] ED for further evaluation. Suprapubic and left lateral periumbilical tenderness to palpation over well- healed incision, in the setting of CHF exacerbation and long-term indwelling Fofana catheter. Patient reports that after receiving IV Lasix he has had significant improvement in bloating sensation, abdominal pain, weakness, and shortness of breath. Patient denies fever, chills, nausea, vomiting, diarrhea, night sweats, headaches, changes in vision, rashes or open lesions, pyuria, hematuria, history of UTI or pulmonary infections. Patient has been having flatus regularly and his last bowel movement was 2 days ago described as soft moderately bulky brown without blood or pus. Chest x-ray demonstrated pulmonary edema consistent with patient's history of CHF and BMP was elevated at 2501, troponin of 0.02. Urine demonstrated bacteria and leuk esterase with culture pending. Stool occult blood negative. Symptoms of abdominal pain may be cumulatively related to possible urinary tract infection due to long-term indwelling Fofana catheter and concurrent CHF exacerbation given symptomatic resolution of abdominal pain and bloating following IV Lasix and persistent suprapubic tenderness on physical exam. Plan: -Continue with medical team management of congestive heart failure to monitor fluid status closely and avoid further CHF exacerbation. -I/O's, daily weights, fluid restriction, low sodium diet. -Urine culture Pending. Long-term indwelling catheter at risk for UTI. -Stable postoperative changes on CT as below under hematoma assessment. -No surgical intervention is needed at this time. Thank you for the consultation. Will sign off at this time. Qualifiers: Abdominal location: unspecified location Qualified Code(s): R10.9 - Unspecified abdominal pain (2) Hematoma Current Visit: Yes Status: Acute Patient is status post colovesicular fistula repair December 2016 with known perivesicular space hematoma. Patient is currently on Coumadin and aspirin. Imaging: CT scan 01/26/17 was compared to prior study on 01/19/17 demonstrating large acute perivesicular space hematoma without significant change; decrease in size of left rectus muscle hematomas, right posterior perirectal hematoma. Small amounts of free fluid in the abdomen and pelvis increased as well as generalized body edema increased. Recent surgery rectosigmoid anastomosis and perirectal fat stranding. Mild interstitial edema at lung base and trace pleural effusions bilaterally. On physical exam: Vitals stable. Residual neurologic deficit status post CVA includes dysarthria and right-sided facial droop. Abd: Mild suprapubic tenderness to palpation without CVA tenderness, mild tenderness to palpation over inferior umbilical incisions, well-healing dry incisions RUQ and inferior to umbilicus, lower extremity edema 1+, resolving ecchymosis of the abdomen right upper quadrant to left lower quadrant, fofana catheter in place. No rebound, ridgidity, guarding, fluid wave. Nonsurgical abdomen. Plan: -Stable perivesicular space hematoma, continue Coumadin to therapeutic level. -Continue daily abdominal exams History of Present Illness Consult date: 01/27/17 Reason for consult: abdominal pain Requesting physician: Rommel Murrieta History of present illness: Mr. Combs is a 56-year-old male with a past medical history of hypertension, coronary artery disease s/p CABG x1, remote history of crack cocaine use, s/p aortic valve replacement 2004 on Coumadin and followed by Coumadin clinic, biventricular ICD insertion 07/26/2013, paroxysmal atrial fibrillation on amiodarone and anticoagulation, cardiomyopathy, hypothyroidism, chronic kidney disease stage III, history of kidney stones, vitamin D deficiency, chronic systolic congestive heart failure NYHA class III, recent CVA LMCA stroke likely cardioembolic on 08/24/2016 for which she had a prolonged hospital stay at [facility] and complicated course with GI bleed, complicated diverticulitis with abscess and colovesicular fistula s/p repair, patient with residual dysarthria and right facial droop who was recently discharged from [facility] to [facility] for rehabilitation with long-term Fofana catheter in place the patient states is changed once a month. Patient reports that he was at [facility] for approximately 5 days and then developed diffuse lower abdominal pain and bloating with 10 lb weigh gain overnight associated fatigue, weakness, and SOB and was transported to [place] ED for further evaluation. Chest x-ray demonstrated pulmonary edema consistent with patient's history of CHF and BMP was elevated at 2501, troponin of 0.02. Urine demonstrated bacteria and leuk esterase culture pending. Stool cold blood and was negative. Patient reports that after receiving IV Lasix he has had significant improvement in bloating sensation, abdominal pain, weakness, and shortness of breath. Patient denies fever, chills, nausea, vomiting, diarrhea, night sweats , headaches, changes in vision, rashes or open lesions, pyuria, hematuria, history of UTI or pulmonary infections. On physical exam: Mild suprapubic tenderness to palpation without CVA tenderness , mild tenderness to palpation over inferior left lateral periumbilical -well- healing dry incision, lower extremity edema 1+, resolving ecchymosis of the abdomen right upper quadrant to left lower quadrant, fofana catheter in place. Surgery consult for evaluation of patient due concern for bleeding due to CT scan with hematomas and patient on Coumadin. PCP: Vladimir [employer] Controls Engineer: Patricia Bueno Past Med Surg Social Fam HX - Past Medical History Medical history: CHF, coronary artery disease, CVA, renal disease, other Psychiatric history: no psych history - Past Surgical History Surgical History: heart valve replacement - Social History Smoking Status: Never smoker Smokeless Tobacco Status: No Alcohol use: none Drug use: none - Family History Father Living Status: Hx Family Respiratory Disorders: Yes Review of Systems All systems PM: A 10-system review of systems was performed and is negative for pertinent findings except as documented above in the HPI. - Constitutional anorexia, fatigue, weight gain, no chills, no fever(s), no headache(s), no night sweats - EENT Nose, mouth and throat: dry mouth, no dysphagia, no headache(s), no neck pain, no odynophagia - Cardiovascular dyspnea on exertion, pedal edema, no chest pain, no chest pain at rest - Respiratory cough (Nonproductive), no hemoptysis, no excessive phlegm production - Gastrointestinal abdominal pain, bloating, early satiety, no diarrhea, no dysphagia, no hematemesis, no hematochezia, no loose stools, no melena, no nausea, no odynophagia, no vomiting - Genitourinary other (Fofana catheter in place), no dysuria, no flank pain, no genital pain, no hematuria - Musculoskeletal no neck pain, no stiffness - Integumentary as per HPI, dry skin, other (Postoperative ecchymosis resolving on abdomen as per above history of present illness), no bleeding lesions, no non-healing lesions, no rash - Neurological abnormal speech (Right facial droop status post CVA), weakness, no confusion, no dizziness, no syncope - Psychiatric change in appetite (Early satiety), no confusion, no depression - Endocrine no excessive sweating, no palpitations - Hematologic/Lymphatic other (On Coumadin and aspirin) - Allergic/Immunologic no uticaria, no lip swelling General Surgery Exam Initial Vital Signs Temp Pulse Resp BP Pulse Ox 98.5 F 65 24 130/86 95 01/26/17 13:26 01/26/17 13:26 01/26/17 13:26 01/26/17 13:26 01/26/17 13:26 - General physical appearance no distress, moderate pain, chronically ill - Eyes PERRL, normal ocular movement - ENT dry mucosa, atraumatic, normocephalic, Other (Right facial droop and dysarthria status post CVA) - Neck no masses, no bruits, trachea midline, no venous distension - Respiratory normal expansion, normal respiratory effort wheezing: bilateral - Abdomen Abdomen general surgery: Present: bowel sounds present, soft, distended, tender (Suprapubic tenderness), surgical scars (Well-healed). Absent: guarding, rebound, rigid, peritoneal Abdominal Tenderness: Present: suprapubic - Incision Incision: Present: clean and dry, intact - Integumentary Integumentary general surgery: Present: warm and dry, other (Abdominal ecchymosis resolving) - Neurologic Present: normal sensation, deep tendon reflexes (Alert and oriented 3 answers questions appropriately although has dysarthria and facial droop) - Musculoskeletal Present: normal posture - Psychiatric Psychiatric general surgery: Present: A&Ox3, appropriate. Absent: speech is normal Exam Initial Vital Signs Temp Pulse Resp BP Pulse Ox 98.5 F 65 24 130/86 95 01/26/17 13:26 01/26/17 13:26 01/26/17 13:26 01/26/17 13:26 01/26/17 13:26 Results - Labs 01/27/17 03:03 01/27/17 03:03 Abnormal lab results RBC 3.10 M/mcL (4.19-5.50) L 01/27/17 03:03 Hgb 9.3 g/dL (12.9-16.9) L 01/27/17 03:03 Hct 29.6 % (37.5-50.1) L 01/27/17 03:03 MCHC 31.4 g/dL (31.6-35.5) L 01/27/17 03:03 RDW 18.5 % (11.5-14.5) H 01/27/17 03:03 PT 20.4 Seconds (9.4-12.1) H 01/27/17 03:03 APTT 44.2 Seconds (26.0-36.0) H 01/26/17 14:08 Creatinine 1.52 mg/dL (0.72-1.25) H 01/27/17 03:03 Est GFR ( Amer) 57 (> 60) L 01/27/17 03:03 Est GFR (Non-Af Amer) 47 (> 60) L 01/27/17 03:03 POC Glucose 99 (58-89) H 01/26/17 13:36 Calcium 8.2 mg/dL (8.6-10.8) L 01/27/17 03:03 Total Bilirubin 1.8 mg/dL (0.2-1.2) H 01/26/17 14:08 AST 98 Units/L (5-34) H 01/26/17 14:08 ALT 65 Units/L (0-55) H 01/26/17 14:08 Alkaline Phosphatase 390 Units/L (38-126) H 01/26/17 14:08 B-Natriuretic Peptide 2501 pg/mL (0-100) H 01/26/17 14:08 Albumin 2.0 g/dL (3.5-5.0) L 01/26/17 14:08 Globulin 4.1 g/dL (2.4-3.5) H 01/26/17 14:08 Albumin/Globulin Ratio 0.5 (1.1-2.2) L 01/26/17 14:08 Ur Specific [place] 1.009 (1.010-1.025) L 01/26/17 23:35 Urine Blood Small (Negative) H 01/26/17 23:35 Ur Leukocyte Esterase Small (Negative) H 01/26/17 23:35 Urine Microscopic RBC 3-5 per hpf (0-3) H 01/26/17 23:35 Urine Microscopic WBC 5-15 per hpf (0-3) H 01/26/17 23:35 Urine Bacteria Moderate per hpf (None-Few) H 01/26/17 23:35 Ur Culture Indicated? YES (NO) A 01/26/17 23:35 Diabetes panel 01/27/17 Range/Units 03:03 Sodium 138 (136-145) mEq/L Potassium 4.2 (3.5-4.5) mEq/L Chloride 102 (98-109) mEq/L Carbon Dioxide 27 (19-29) mEq/L BUN 24 (8-26) mg/dL Creatinine 1.52 H (0.72-1.25) mg/dL Glucose 94 (70-99) mg/dL Calcium 8.2 L (8.6-10.8) mg/dL Calcium panel 01/27/17 Range/Units 03:03 Calcium 8.2 L (8.6-10.8) mg/dL Pituitary panel 01/27/17 Range/Units 03:03 Sodium 138 (136-145) mEq/L Potassium 4.2 (3.5-4.5) mEq/L Chloride 102 (98-109) mEq/L Carbon Dioxide 27 (19-29) mEq/L BUN 24 (8-26) mg/dL Creatinine 1.52 H (0.72-1.25) mg/dL Glucose 94 (70-99) mg/dL Calcium 8.2 L (8.6-10.8) mg/dL Adrenal panel 01/27/17 Range/Units 03:03 Sodium 138 (136-145) mEq/L Potassium 4.2 (3.5-4.5) mEq/L Chloride 102 (98-109) mEq/L Carbon Dioxide 27 (19-29) mEq/L BUN 24 (8-26) mg/dL Creatinine 1.52 H (0.72-1.25) mg/dL Glucose 94 (70-99) mg/dL Calcium 8.2 L (8.6-10.8) mg/dL All other labs normal. - Imaging Chest x-ray: report reviewed, image reviewed CT scan - abdomen: report reviewed, image reviewed CT scan - pelvis: report reviewed, image reviewed
[2017-01-27] MEDS ORDERED: *HR* Warfarin 3 MG TABLET PO ONE ×2 (10:18→18:00)
--- NOTE | 2017-01-27 12:18 | Electrocardiograph Report ---
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
--- NOTE | 2017-01-27 12:23 | Internal Med Progress Note ---
Date of Encounter: 01/27/17 Time of Encounter: 12:20 - Assessment and plan (1) Urinary tract infection Current Visit: Yes Status: Acute Assessment and plan: Suspected UTI. We will start ceftriaxone. Await urine culture. Qualifiers: Qualified Code(s): N39.0 - Urinary tract infection, site not specified (2) Aortic valve replaced Current Visit: No Status: Acute Assessment and plan: Patient has a mechanical awarded valve. He is all. Continue if 3 mg today. I have discussed the case with the surgeon. Patient has stable hematomas and abdomen when comparing CT scan performed a week ago and yesterday. Surgery team is okay continuing anticoagulation for his awarded prosthesis. Serial Follow abdominal exams and follow H&H. (3) Acute on chronic heart failure Current Visit: Yes Status: Acute Assessment and plan: Improving. I will decrease Lasix to 20 mg IV daily. Qualifiers: Qualified Code(s): I50.9 - Heart failure, unspecified (4) Hematoma Current Visit: Yes Status: Acute Assessment and plan: Abdominal hematomas are stable in size. Discussed with surgery will evaluate the patient. Recommendation is to continue anticoagulation with Coumadin for aortic prosthesis. - Subjective Interval history: Patient seen and examined. Notices improvement in his respiratory status. Denies any sputum production, fever or chills. - Constitutional Vitals: Temp Pulse Resp BP Pulse Ox 98.2 F 60 16 118/73 97 01/27/17 08:17 01/27/17 08:17 01/27/17 08:17 01/27/17 08:17 01/27/17 08:17 General appearance: Present: A&O X 3, answers questions appropriately Exam: Gen.: patient is alert oriented times 3 not in distress. Cardiac: normal S1 S2 no additional sounds or murmurs chest: rales in bases abdomen: Distended. Scars of prior surgeries. No rebound tenderness or guarding. Bowel sounds present neuro: no focal deficit Internal Medicine: Result - Labs CBC & Chem 7: 01/27/17 03:03 01/27/17 03:03 Labs: Short CBC 01/27/17 Range/Units 03:03 WBC 9.3 (4.3-11.1) K/mcL Hgb 9.3 L (12.9-16.9) g/dL Hct 29.6 L (37.5-50.1) % Plt Count 317 (140-400) K/mcL Neutrophils # 7.7 (1.6-8.9) K/mcL BMP 01/27/17 03:03 Sodium 138 Potassium 4.2 Chloride 102 Carbon Dioxide 27 BUN 24 Creatinine 1.52 H Glucose 94 Calcium 8.2 L Cardiac Enzymes 01/26/17 01/27/17 Range/Units 20:14 03:03 Troponin I 0.02 0.02 (0-0.03) ng/mL Urine 01/26/17 Range/Units 23:35 Urine Color Yellow (Yellow) Urine Clarity Clear (Clear) Urine pH 6.0 (5.0-8.0) pH Units Ur Specific [place] 1.009 L (1.010-1.025) Urine Protein Negative (Neg-Trace) mg/dL Urine Glucose (UA) Normal (Normal) mg/dL - ABG Interpretation ABG results: PT/INR, D-dimer PT 20.4 Seconds (9.4-12.1) H 01/27/17 03:03 - Impressions Impressions Abdomen/Pelvis CT 01/26/17 16:57 IMPRESSION: The large acute prevesical space hematoma has not changed significantly in size from 01/19/2017. The smaller left rectus muscle hematomas located both superiorly and inferiorly have decreased slightly in size. A right posterior perirectal hematoma has decreased slightly in size. Small amount of free fluid in the abdomen and pelvis, slightly increased. Generalized body edema has slightly increased. Evidence of recent surgery with rectosigmoid anastomosis and perirectal fat stranding. Mild interstitial edema at the lung bases with trace bilateral pleural effusions. D/ / Diogo Walker MD / Diogo Walker MD Interpreting Provider: Diogo Walker MD Consult Discharge Plan - Plan Referrals: Mukund Lira MD [Primary Care Provider] -
[2017-01-27] MEDS ORDERED: 0.9 % Sodium Chloride 500 ML IVC ONE (15:22)
[2017-01-27] MEDS ORDERED: 0.9 % Sodium Chloride 500 ML ONE (15:24)
[2017-01-27] MEDS: *HR* Amiodarone 200 MG TABLET PO SCH (21:26)
[2017-01-28 03:38] LABS: Basophils % 0.1 %; Eosinophils % 0.4 %; Hematocrit 28.1 % (37.5-50.1); Hemoglobin 8.8 g/dL (12.9-16.9); Immature Granulocytes % 0.6 % (0-4); Lymphocytes # 0.7 K/mcL (0.6-4.6); Lymphocytes % 7.9 %; Mean Corpuscular HGB Conc 31.3 g/dL (31.6-35.5); Mean Corpuscular Hemoglobin 29.4 pg (28.0-33.3); Mean Platelet Volume 12.1 fL (9.4-12.4); Monocytes # 0.7 K/mcL (0.0-1.3); Monocytes % 8.2 %; Neutrophils # 7.5 K/mcL (1.6-8.9); Platelet Count 314 K/mcL (140-400); Red Blood Count 2.99 M/mcL (4.19-5.50); Red Cell Distribution Width 18.2 % (11.5-14.5); Segmented Neutrophils % 82.8 %
[2017-01-28 03:40] LABS: Prothrombin Time 21.7 Seconds (9.4-12.1)
[2017-01-28 03:58] LABS: Calcium 8.2 mg/dL (8.6-10.8); Magnesium 1.5 mg/dL (1.6-2.6); Potassium 3.7 mEq/L (3.5-4.5)
[2017-01-28] MEDS ORDERED: Furosemide 40 MG/4 ML VIAL IVP SCH ×2 (09:00)
[2017-01-28] MEDS: Aspirin 81 MG TAB.CHEW PO SCH (09:05)
--- NOTE | 2017-01-28 09:40 | Internal Med Progress Note ---
Date of Encounter: 01/28/17 Time of Encounter: 09:38 - Assessment and plan (1) CHF (congestive heart failure) Current Visit: Yes Status: Acute Assessment and plan: He continues to have upper and lower extremity pitting edema. He presented today's ago with shortness of breath and abdominal swelling and pain and received treatment for CHF with IV Lasix. Reportedly he had a 10 pound weight gain over the last 2 weeks. His BNP [place] 2501 on presentation compared to 1206 on January 19. He is -3.3 L overall during this admission. I will continue with Lasix and increased doses of 20 mg IV twice a day. Continue fluid restriction of 1500 mL daily. Strict input output monitoring. I will request his echocardiogram report from [facility]. He requires inpatient admission for treatment of urinary complicated urinary tract infection catheter associated and acute heart failure and I expect his medical management to require hospitalization for greater than 2 midnights. For past medical history family history social history and review of systems please refer to the H&P dictated at this institution. There are no changes or updates. Qualifiers: Congestive heart failure type: systolic Congestive heart failure chronicity : acute on chronic Qualified Code(s): I50.23 - Acute on chronic systolic ( congestive) heart failure (2) Weakness generalized Current Visit: No Status: Acute (3) DVT prophylaxis Current Visit: No Status: Acute Assessment and plan: Fully anticoagulated (4) CKD (chronic kidney disease) stage 3, GFR 30-59 ml/min Current Visit: No Status: Chronic (5) Paroxysmal atrial fibrillation Current Visit: No Status: Chronic Assessment and plan: On anticoagulation with Coumadin (6) Urinary tract infection Current Visit: Yes Status: Acute Assessment and plan: Urine culture shows growth of gram-negative rods. Continue with ceftriaxone. Follow up final culture and sensitivity. Qualifiers: Urinary tract infection type: acute cystitis Hematuria presence: without hematuria Qualified Code(s): N30.00 - Acute cystitis without hematuria (7) Aortic valve replaced Current Visit: No Status: Acute Assessment and plan: Patient has a mechanical aortic valve. We will continue with Coumadin anticoagulation with goal INR 2.5, range 2.0-3.0. Pharmacy to adjust dosing. - Subjective Interval history: Patient reports no abdominal pain today. He states that he had a small bowel movement today, with no blood. Denies chest pain and shortness of breath. - Constitutional Vitals: Temp Pulse Resp BP Pulse Ox 98.3 F 89 16 116/75 97 01/28/17 07:06 01/28/17 07:06 01/28/17 07:06 01/28/17 07:06 01/28/17 07:06 General appearance: Present: A&O X 3, answers questions appropriately - Eye Eye exam: Present: PERRL, conjuntiva pink, sclera anicteric Pupils: Present: PERRL - Respiratory Respiratory exam: Present: wheezes (Bilateral end expiratory wheezes). Absent: accessory muscle use, rales, rhonchi - Cardiovascular Cardiovascular exam: Present: clicks (Metallic click consistent with mechanical aortic valve), RRR, +S1, +S2. Absent: diastolic murmur, gallop, rubs, systolic murmur - GI/Abdominal GI/Abdominal exam: Present: normal bowel sounds, soft (Postsurgical incision healing well.), no peritoneal signs. Absent: distended, tenderness - External exam: Present: normal external exam (Gooden catheter is present in place ). Absent: lesions, swelling - Extremities Exam Extremities exam: Present: pedal edema (Bilateral upper and lower extremity pitting edema), warm, radial pulses palpable and symetrical. Absent: calf tenderness, cyanotic - Neurological Exam Neurological exam: Present: CN II-XII intact, oriented X3, no focal deficits. Absent: pronater drift, facial droop, speech deficit - Skin Skin exam: Present: dry, intact Internal Medicine: Result - Labs CBC & Chem 7: 01/28/17 03:25 01/28/17 03:25 Labs: Short CBC 01/28/17 Range/Units 03:25 WBC 9.0 (4.3-11.1) K/mcL Hgb 8.8 L (12.9-16.9) g/dL Hct 28.1 L (37.5-50.1) % Plt Count 314 (140-400) K/mcL Neutrophils # 7.5 (1.6-8.9) K/mcL BMP 01/28/17 03:25 Sodium 137 Potassium 3.7 Chloride 101 Carbon Dioxide 30 H BUN 25 Creatinine 1.47 H Glucose 91 Calcium 8.2 L - ABG Interpretation ABG results: PT/INR, D-dimer PT 21.7 Seconds (9.4-12.1) H 01/28/17 03:25 Consult Discharge Plan - Plan Referrals: Mukund Lira MD [Primary Care Provider] -
[2017-01-28] MEDS: Furosemide 20 MG/2 ML VIAL IVP SCH ×2 (10:22→20:31)
[2017-01-28] MEDS ORDERED: *HR* Warfarin 2 MG TABLET PO SCH (18:00)
[2017-01-28] MEDS: *HR* Amiodarone 200 MG TABLET PO SCH (20:31)
[2017-01-28] MEDS ORDERED: Acetaminophen 325 MG TABLET PO ONE (22:02)
[2017-01-29 04:47] LABS: Basophils % 0.2 %; Eosinophils % 0.3 %; Hemoglobin 8.9 g/dL (12.9-16.9); Immature Granulocytes % 0.6 % (0-4); Lymphocytes # 0.9 K/mcL (0.6-4.6); Lymphocytes % 9.4 %; Mean Corpuscular HGB Conc 30.7 g/dL (31.6-35.5); Mean Corpuscular Volume 94.5 fL (83.0-100.0); Mean Platelet Volume 11.4 fL (9.4-12.4); Monocytes # 0.7 K/mcL (0.0-1.3); Monocytes % 7.8 %; Neutrophils # 7.4 K/mcL (1.6-8.9); Platelet Count 330 K/mcL (140-400); Red Blood Count 3.07 M/mcL (4.19-5.50); Red Cell Distribution Width 17.9 % (11.5-14.5); Segmented Neutrophils % 81.7 %
[2017-01-29 04:51] LABS: INR 2.5; Prothrombin Time 27.9 Seconds (9.4-12.1)
[2017-01-29 05:10] LABS: Potassium 3.6 mEq/L (3.5-4.5)
[2017-01-29] MEDS: Aspirin 81 MG TAB.CHEW PO SCH (09:47)
[2017-01-29] MEDS: Furosemide 20 MG/2 ML VIAL IVP SCH ×2 (09:47→20:08)
--- NOTE | 2017-01-29 16:59 | Internal Med Progress Note ---
Date of Encounter: 01/29/17 Time of Encounter: 10:00 - Assessment and plan (1) CHF (congestive heart failure) Current Visit: Yes Status: Acute Assessment and plan: 01/29/2017: I will continue with IV Lasix. He is diuresing well. We will consider switching to oral Lasix. Continue monitoring strict I's and O's and daily weights. 01/28/2017: He continues to have upper and lower extremity pitting edema. He presented today's ago with shortness of breath and abdominal swelling and pain and received treatment for CHF with IV Lasix. Reportedly he had a 10 pound weight gain over the last 2 weeks. His BNP was increased [place] 2501 on presentation compared to 1206 on January 19. He is -3.3 L overall during this admission. I will continue with Lasix and increased doses of 20 mg IV twice a day. Continue fluid restriction of 1500 mL daily. Strict input output monitoring. I will request his echocardiogram report from [facility]. He requires inpatient admission for treatment of urinary complicated urinary tract infection catheter associated and acute heart failure and I expect his medical management to require hospitalization for greater than 2 midnights. For past medical history family history social history and review of systems please refer to the H&P dictated at this institution. There are no changes or updates. Qualifiers: Congestive heart failure type: systolic Congestive heart failure chronicity : acute on chronic Qualified Code(s): I50.23 - Acute on chronic systolic ( congestive) heart failure (2) Weakness generalized Current Visit: No Status: Acute Assessment and plan: Continued PT and OT. (3) DVT prophylaxis Current Visit: No Status: Acute Assessment and plan: Fully anticoagulated with warfarin. His INR is therapeutic today. (4) CKD (chronic kidney disease) stage 3, GFR 30-59 ml/min Current Visit: No Status: Chronic Assessment and plan: Monitor BUN and creatinine. Creatinine is trending up today. I will hold the afternoon dose of Lasix to give a diuretic brake and check creatinine in the morning. (5) Paroxysmal atrial fibrillation Current Visit: No Status: Chronic Assessment and plan: On anticoagulation with Coumadin (6) Urinary tract infection Current Visit: Yes Status: Acute Assessment and plan: Urine culture shows growth of gram-negative rods. Continue with ceftriaxone. Follow up final culture and sensitivity. Qualifiers: Urinary tract infection type: acute cystitis Hematuria presence: without hematuria Qualified Code(s): N30.00 - Acute cystitis without hematuria (7) Aortic valve replaced Current Visit: No Status: Acute Assessment and plan: Patient has a mechanical aortic valve. We will continue with Coumadin anticoagulation with goal INR 2.5, range 2.0-3.0. Pharmacy to adjust dosing. - Subjective Interval history: 01/29/2017: Reports improvement in his lower extremity swelling and shortness of breath. No further rectal bleeding. 01/28/2017: Patient reports no abdominal pain today. He states that he had a small bowel movement today, with no blood. Denies chest pain and shortness of breath. - Constitutional Vitals: Temp Pulse Resp BP Pulse Ox 98.2 F 61 16 131/72 98 01/29/17 16:31 01/29/17 16:31 01/29/17 16:31 01/29/17 16:31 01/29/17 16:31 General appearance: Present: A&O X 3, answers questions appropriately - Eye Eye exam: Present: PERRL, conjuntiva pink, sclera anicteric Pupils: Present: PERRL - Respiratory Respiratory exam: Present: CTAB. Absent: accessory muscle use, rales, rhonchi, wheezes - Cardiovascular Cardiovascular exam: Present: clicks, irregular rhythm, +S1, +S2. Absent: diastolic murmur, gallop, rubs, systolic murmur - Skin Skin exam: Present: dry, intact Internal Medicine: Result - Labs CBC & Chem 7: 01/29/17 04:20 01/29/17 04:20 Labs: Short CBC 01/29/17 Range/Units 04:20 WBC 9.1 (4.3-11.1) K/mcL Hgb 8.9 L (12.9-16.9) g/dL Hct 29.0 L (37.5-50.1) % Plt Count 330 (140-400) K/mcL Neutrophils # 7.4 (1.6-8.9) K/mcL BMP 01/29/17 04:20 Sodium 137 Potassium 3.6 Chloride 100 Carbon Dioxide 30 H BUN 26 Creatinine 1.56 H Glucose 107 H Calcium 8.0 L - ABG Interpretation ABG results: PT/INR, D-dimer PT 27.9 Seconds (9.4-12.1) H 01/29/17 04:20 Consult Discharge Plan - Plan Referrals: Mukund Lira MD [Primary Care Provider] - (Patient plans to go back to [facility])
[2017-01-29] MEDS: *HR* Warfarin 2 MG TABLET PO SCH (18:29)
[2017-01-29] MEDS: *HR* Amiodarone 200 MG TABLET PO SCH (20:08)
[2017-01-29] MEDS ORDERED: Acetaminophen 325 MG TABLET PO ONE (23:15)
[2017-01-30 06:05] LABS: Basophils % 0.2 %; Eosinophils % 0.4 %; Hematocrit 30.4 % (37.5-50.1); Hemoglobin 9.4 g/dL (12.9-16.9); Immature Granulocytes % 0.6 % (0-4); Lymphocytes % 9.4 %; Mean Corpuscular HGB Conc 30.9 g/dL (31.6-35.5); Mean Corpuscular Hemoglobin 29.1 pg (28.0-33.3); Mean Corpuscular Volume 94.1 fL (83.0-100.0); Mean Platelet Volume 11.8 fL (9.4-12.4); Monocytes # 0.7 K/mcL (0.0-1.3); Monocytes % 6.8 %; Neutrophils # 8.4 K/mcL (1.6-8.9); Platelet Count 367 K/mcL (140-400); Red Blood Count 3.23 M/mcL (4.19-5.50); Red Cell Distribution Width 17.8 % (11.5-14.5); Segmented Neutrophils % 82.6 %
[2017-01-30 06:06] LABS: INR 2.1; Prothrombin Time 23.6 Seconds (9.4-12.1)
[2017-01-30 06:17] LABS: BUN/Creatinine Ratio 16 (6-26); Blood Urea Nitrogen 23 mg/dL (8-26); Calcium 8.3 mg/dL (8.6-10.8); Carbon Dioxide 30 mEq/L (19-29); Chloride 100 mEq/L (98-109); Glucose 93 mg/dL (70-99); Osmolality,Calculated 289 (280-300); Potassium 3.4 mEq/L (3.5-4.5); Sodium 138 mEq/L (136-145); eGFR For African Americans > 60 (> 60); eGFR For Non-African Americans 52 (> 60)
[2017-01-30] MEDS: Aspirin 81 MG TAB.CHEW PO SCH (09:12)
[2017-01-30] MEDS: Furosemide 20 MG/2 ML VIAL IVP SCH (09:12)
[2017-01-30] MEDS ORDERED: Mag Hydrox/Al Hydrox/Simeth 30 ML UDC PO PRN (10:07)
[2017-01-30] MEDS ORDERED: Acetaminophen 325 MG TABLET PO ONE (10:07)
--- NOTE | 2017-01-30 12:56 | Discharge Summary ---
Date of Encounter: 01/30/17 Time of Encounter: 12:54 - Discharge Diagnosis (1) CHF (congestive heart failure) Priority: Primary Status: Acute Qualifiers: Congestive heart failure type: systolic Congestive heart failure chronicity : acute on chronic Qualified Code(s): I50.23 - Acute on chronic systolic ( congestive) heart failure (2) Weakness generalized Priority: Secondary Status: Acute (3) DVT prophylaxis Priority: Secondary Status: Acute (4) CKD (chronic kidney disease) stage 3, GFR 30-59 ml/min Priority: Secondary Status: Chronic (5) Paroxysmal atrial fibrillation Priority: Secondary Status: Chronic (6) Urinary tract infection Priority: Secondary Status: Acute Qualifiers: Urinary tract infection type: acute cystitis Hematuria presence: without hematuria Qualified Code(s): N30.00 - Acute cystitis without hematuria (7) Aortic valve replaced Priority: Secondary Status: Acute - Discharge Medications Prescriptions: Cefuroxime PO [Ceftin] 250 mg PO Q12HR #10 tablet Oxycodone HCl/Acetaminophen [Percocet 5-325 mg Tablet] 1 - 2 each PO Q4H PRN # 30 tablet PRN Reason: Moderate Pain Home Medications: Albuterol Sulfate [Albuterol Inhaler] 2 puff IH Q6H PRN 01/19/17 [History] Amiodarone [Cordarone] 200 mg PO HS 01/19/17 [History] Atorvastatin [Lipitor] 40 mg PO HS 01/19/17 [History] Carvedilol [Coreg] 25 mg PO BID 01/19/17 [History] Levothyroxine Sodium [Levo-T] 100 mcg PO QAM 01/19/17 [History] Potassium Chloride [K-Tab ER] 10 meq PO DAILY 01/19/17 [History] Sertraline [Zoloft] 100 mg PO DAILY 01/19/17 [History] Acetaminophen [Tylenol] 325 - 650 mg PO Q4H PRN 01/26/17 [History] Aspirin 81 mg PO DAILY 01/26/17 [History] Ergocalciferol (VITAMIN D2) [Vitamin D2] 50,000 unit PO TH 01/26/17 [History] Melatonin 5 mg PO HS PRN 01/26/17 [History] Multivitamin with Minerals/Lut [Cerovite Senior Tablet] 1 each PO DAILY [History] Nitroglycerin [Nitrostat] 0.4 mg SL Q5M PRN 01/26/17 [History] Quetiapine Fumarate [Seroquel] 100 mg PO DAILY 01/26/17 [History] Cefuroxime PO [Ceftin] 250 mg PO Q12HR #10 tablet 01/30/17 [Rx] Furosemide [Lasix] 40 mg PO DAILY #0 01/30/17 [Rx] Losartan [Cozaar] 12.5 mg PO DAILY #30 tablet 01/30/17 [Rx] Mag Hydrox/Al Hydrox/Simeth [Maalox] 15 ml PO Q6HR PRN #0 udc 01/30/17 [Rx] Oxycodone HCl/Acetaminophen [Percocet 5-325 mg Tablet] 1 - 2 each PO Q4H PRN # 30 tablet 01/30/17 [Rx] Warfarin [Coumadin] 2 mg PO WeSa@1800 tablet 01/30/17 [Rx] Warfarin [Coumadin] 4 mg PO SuMoTuThFr@1800 tablet 01/30/17 [Rx] Allergies/Adverse Reactions: Allergies No Known Allergies Allergy (Verified 01/26/17 13:35) Date of admission: 01/28/17 17:26 Primary care physician: Mukund Lira MD - Patient Status Disposition: Transfer SNF Condition: Good Functional capacity at discharge: uses cane/walker Overall status at discharge: patient is progressing back to baseline - Discharge Instructions Follow Up With: Mukund Lira MD [Primary Care Provider] - (Patient plans to go back to [place]) - Diet and Activity Activity: as per physical therapy, increase activity as tolerated Diet: low fat, low cholesterol, low salt diet (Fluid restriction 1500 mL daily) Hospital course: Hospital presentation: Mr. Combs is a 56 year old male with past medical history of hypertension, hypothyroid, colovesical fistula repair 01/02/17, s/p aortic valve replacement, systolic heart failure, pacemaker placement, CKD stage III/IV, CVA with residual deficits, history of crack cocaine use. According to the patient in the past few days she has been experiencing increased weakness and fatigue. For the past 24 hours she has noted abdominal distention as well as pound weight gain. He denies any fevers chills nausea vomiting or diarrhea. He was presented to the ER with the above complaints. According to ER records BNP was 2501, chest x-ray did show some pulmonary congestion patient was given Lasix. He has been admitted for further workup evaluation presently patient denies any chest pain shortness of breath he is not improving respiratory distress with lung sounds have some faint expiratory wheezes. Hospital course: The patient was admitted to the medical service. He was treated with IV Lasix. He had a good diuretic output. He was noted to have bilateral upper and lower extremity edema which has improved with diuretic treatment. He shortness of breath and abdominal distention also have improved. He was treated with ceftriaxone for UTI. Culture grew Klebsiella sensitive to cephalosporins and will be transitioned to oral Ceftin. His dose of Lasix will be increased to 40 mg daily and [facility]. An echocardiogram report from August 2016 done at [facility] showed an ejection fraction of 35%. He will be discharged on Coreg and will be started on losartan. - Time Spent with Patient Total time spent providing and/or coordinating discharge services: - Constitutional Vitals: Temp Pulse Resp BP Pulse Ox 97.5 F L 60 17 134/84 97 01/30/17 10:51 01/30/17 10:51 01/30/17 10:51 01/30/17 10:51 01/30/17 10:51 General appearance: Present: A&O X 3, answers questions appropriately - Respiratory Respiratory exam: Present: CTAB. Absent: accessory muscle use, rales, rhonchi, wheezes - Cardiovascular Cardiovascular exam: Present: clicks (Metallic click consistent with prosthetic aortic valve), irregular rhythm, +S1, +S2. Absent: diastolic murmur, gallop, rubs, systolic murmur - GI/Abdominal GI/Abdominal exam: Present: normal bowel sounds, soft, no peritoneal signs. Absent: distended, tenderness
--- NOTE | 2017-01-30 13:15 | Physician Discharge Referral ---
ExtendedCare Referral Info Transfer To: ECF Provider in Charge after Transfer: PCP Institutional Level of Care: Skilled - Diagnosis (1) CHF (congestive heart failure) Status: Acute (2) Weakness generalized Status: Acute (3) DVT prophylaxis Status: Acute (4) CKD (chronic kidney disease) stage 3, GFR 30-59 ml/min Status: Chronic (5) Paroxysmal atrial fibrillation Status: Chronic (6) Urinary tract infection Status: Acute (7) Aortic valve replaced Status: Acute - Transfer Medications Prescriptions: Cefuroxime PO [Ceftin] 250 mg PO Q12HR #10 tablet Losartan [Cozaar] 12.5 mg PO DAILY #30 tablet Oxycodone HCl/Acetaminophen [Percocet 5-325 mg Tablet] 1 - 2 each PO Q4H PRN # 30 tablet PRN Reason: Moderate Pain Home Medications: Albuterol Sulfate [Albuterol Inhaler] 2 puff IH Q6H PRN 01/19/17 [History] Amiodarone [Cordarone] 200 mg PO HS 01/19/17 [History] Atorvastatin [Lipitor] 40 mg PO HS 01/19/17 [History] Carvedilol [Coreg] 25 mg PO BID 01/19/17 [History] Levothyroxine Sodium [Levo-T] 100 mcg PO QAM 01/19/17 [History] Potassium Chloride [K-Tab ER] 10 meq PO DAILY 01/19/17 [History] Sertraline [Zoloft] 100 mg PO DAILY 01/19/17 [History] Acetaminophen [Tylenol] 325 - 650 mg PO Q4H PRN 01/26/17 [History] Aspirin 81 mg PO DAILY 01/26/17 [History] Ergocalciferol (VITAMIN D2) [Vitamin D2] 50,000 unit PO TH 01/26/17 [History] Melatonin 5 mg PO HS PRN 01/26/17 [History] Multivitamin with Minerals/Lut [Cerovite Senior Tablet] 1 each PO DAILY [History] Nitroglycerin [Nitrostat] 0.4 mg SL Q5M PRN 01/26/17 [History] Quetiapine Fumarate [Seroquel] 100 mg PO DAILY 01/26/17 [History] Cefuroxime PO [Ceftin] 250 mg PO Q12HR #10 tablet 01/30/17 [Rx] Furosemide [Lasix] 40 mg PO DAILY #0 01/30/17 [Rx] Losartan [Cozaar] 12.5 mg PO DAILY #30 tablet 01/30/17 [Rx] Mag Hydrox/Al Hydrox/Simeth [Maalox] 15 ml PO Q6HR PRN #0 udc 01/30/17 [Rx] Oxycodone HCl/Acetaminophen [Percocet 5-325 mg Tablet] 1 - 2 each PO Q4H PRN # 30 tablet 01/30/17 [Rx] Warfarin [Coumadin] 2 mg PO WeSa@1800 tablet 01/30/17 [Rx] Warfarin [Coumadin] 4 mg PO SuMoTuThFr@1800 tablet 01/30/17 [Rx] Allergies/Adverse Reactions: Allergies No Known Allergies Allergy (Verified 01/26/17 13:35) - Respiratory Orders Smoking Cessation: Smoking cessation has been advised. For more information, call the [place] Tobacco Quit Line at 1-502-RXWD-NOW. - Lab Orders Lab Orders: Other (include drug levels w/frequency) (Weekly INR on Monday to start 02/01/2017 for warfarin therapy monitoring. Goal INR is 2-3.) - Advance Directives Living Will: Yes Power of Personnel Records Clerk: Yes Code Status: Full Code - Mobility Orders Ambulate - Rehabiliation Orders Rehab Potential: Fair Rehab Orders: Evaluation for Physical Therapy, Evaluation for Occupational Therapy - Treatments Skin tear care topically daily PRN per policy - Diet Orders No Added Salt (ИРИНА), Cardiac CERTIFICATION: I certify that the transfer of the above named patient to an Extended Care Facility is necessary for the continuing treatment of the diagnosis listed. The above information is true and accurate reflection of patient's current condition. Confidential - Redisclosure prohibited without a patient's written consent.
[2017-01-30] MEDS: *HR* Warfarin 2 MG TABLET PO SCH (17:45)
[2017-01-30] MEDS: *HR* Amiodarone 200 MG TABLET PO SCH (20:53)
[2017-01-31 04:31] LABS: INR 2.5; Prothrombin Time 27.9 Seconds (9.4-12.1)
[2017-01-31 04:32] LABS: Basophils % 0.2 %; Eosinophils # 0.1 K/mcL (0.0-0.6); Eosinophils % 0.6 %; Immature Granulocytes % 0.6 % (0-4); Lymphocytes % 6.6 %; Mean Corpuscular HGB Conc 31.3 g/dL (31.6-35.5); Mean Corpuscular Hemoglobin 29.2 pg (28.0-33.3); Mean Corpuscular Volume 93.6 fL (83.0-100.0); Mean Platelet Volume 11.5 fL (9.4-12.4); Monocytes # 0.9 K/mcL (0.0-1.3); Monocytes % 6.2 %; Neutrophils # 12.4 K/mcL (1.6-8.9); Platelet Count 443 K/mcL (140-400); Red Blood Count 3.42 M/mcL (4.19-5.50); Segmented Neutrophils % 85.8 %
[2017-01-31 04:48] LABS: BUN/Creatinine Ratio 16 (6-26); Blood Urea Nitrogen 19 mg/dL (8-26); Calcium 8.6 mg/dL (8.6-10.8); Carbon Dioxide 29 mEq/L (19-29); Chloride 99 mEq/L (98-109); Glucose 98 mg/dL (70-99); Osmolality,Calculated 284 (280-300); Potassium 3.6 mEq/L (3.5-4.5); Sodium 136 mEq/L (136-145); eGFR For African Americans > 60 (> 60); eGFR For Non-African Americans > 60 (> 60)
[2017-01-31] MEDS ORDERED: Furosemide 40 MG TABLET PO SCH (09:00)
[2017-01-31] MEDS: Aspirin 81 MG TAB.CHEW PO SCH (09:13)
--- NOTE | 2017-01-31 10:40 | Internal Med Progress Note ---
Date of Encounter: 01/31/17 Time of Encounter: 10:40 - Assessment and plan (1) CHF (congestive heart failure) Status: Acute Assessment and plan: 01/31/2017: The patient is euvolemic, continue with Lasix, okay to switch to oral. Ready for discharge. 01/29/2017: I will continue with IV Lasix. He is diuresing well. We will consider switching to oral Lasix. Continue monitoring strict I's and O's and daily weights. 01/28/2017: He continues to have upper and lower extremity pitting edema. He presented today's ago with shortness of breath and abdominal swelling and pain and received treatment for CHF with IV Lasix. Reportedly he had a 10 pound weight gain over the last 2 weeks. His BNP was increased [place] 2501 on presentation compared to 1206 on January 19. He is -3.3 L overall during this admission. I will continue with Lasix and increased doses of 20 mg IV twice a day. Continue fluid restriction of 1500 mL daily. Strict input output monitoring. I will request his echocardiogram report from [facility]. He requires inpatient admission for treatment of urinary complicated urinary tract infection catheter associated and acute heart failure and I expect his medical management to require hospitalization for greater than 2 midnights. For past medical history family history social history and review of systems please refer to the H&P dictated at this institution. There are no changes or updates. Qualifiers: Congestive heart failure type: systolic Congestive heart failure chronicity : acute on chronic Qualified Code(s): I50.23 - Acute on chronic systolic ( congestive) heart failure (2) Weakness generalized Status: Acute Assessment and plan: He will benefit from subacute rehabilitation placement. Continued PT and OT while inpatient.. (3) DVT prophylaxis Status: Acute (4) CKD (chronic kidney disease) stage 3, GFR 30-59 ml/min Status: Chronic Assessment and plan: Monitor BUN and creatinine. Creatinine is trending up today. I will hold the afternoon dose of Lasix to give a diuretic brake and check creatinine in the morning. (5) Paroxysmal atrial fibrillation Status: Chronic Assessment and plan: On anticoagulation with Coumadin. INR is therapeutic today. (6) Urinary tract infection Status: Acute Assessment and plan: Urine culture shows growth of gram-negative rods. Continue with ceftriaxone. Follow up final culture and sensitivity reveals Klebsiella sensitive to cephalosporins. We will switch to Ceftin upon discharge. Qualifiers: Urinary tract infection type: acute cystitis Hematuria presence: without hematuria Qualified Code(s): N30.00 - Acute cystitis without hematuria (7) Aortic valve replaced Status: Acute - Subjective Interval history: 01/31/2017: The patient denies cough shortness of breath and fever. Denies nausea vomiting. He has passed a bowel movement, denies diarrhea. 01/29/2017: Reports improvement in his lower extremity swelling and shortness of breath. No further rectal bleeding. 01/28/2017: Patient reports no abdominal pain today. He states that he had a small bowel movement today, with no blood. Denies chest pain and shortness of breath. - Constitutional Vitals: Temp Pulse Resp BP Pulse Ox 97.9 F 81 16 138/82 93 01/31/17 09:01 01/31/17 09:01 01/31/17 09:01 01/31/17 09:01 01/31/17 09:27 General appearance: Present: A&O X 3, answers questions appropriately - Respiratory Respiratory exam: Present: CTAB. Absent: accessory muscle use, rales, rhonchi, wheezes - Cardiovascular Cardiovascular exam: Present: irregular rhythm, +S1, +S2. Absent: diastolic murmur, gallop, rubs, systolic murmur - GI/Abdominal GI/Abdominal exam: Present: normal bowel sounds, soft, no peritoneal signs. Absent: distended, tenderness - Extremities Exam Extremities exam: Present: pedal edema (Bilateral ankle pitting edema.), warm, radial pulses palpable and symetrical. Absent: calf tenderness, cyanotic Internal Medicine: Result - Labs CBC & Chem 7: 01/31/17 04:00 01/31/17 04:00 Labs: Short CBC 01/31/17 Range/Units 04:00 WBC 14.5 H (4.3-11.1) K/mcL Hgb 10.0 L (12.9-16.9) g/dL Hct 32.0 L (37.5-50.1) % Plt Count 443 H (140-400) K/mcL Neutrophils # 12.4 H (1.6-8.9) K/mcL BMP 01/31/17 04:00 Sodium 136 Potassium 3.6 Chloride 99 Carbon Dioxide 29 BUN 19 Creatinine 1.20 Glucose 98 Calcium 8.6 - ABG Interpretation ABG results: PT/INR, D-dimer PT 27.9 Seconds (9.4-12.1) H 01/31/17 04:00 Consult Discharge Plan - Plan Referrals: Mukund Lira MD [Primary Care Provider] - ([facility] Prescriptions: Cefuroxime PO [Ceftin] 250 mg PO Q12HR #10 tablet Losartan [Cozaar] 12.5 mg PO DAILY #30 tablet Oxycodone HCl/Acetaminophen [Percocet 5-325 mg Tablet] 1 - 2 each PO Q4H PRN # 30 tablet PRN Reason: Moderate Pain
[2017-01-31 12:07] VITALS: BP 110/69
== END 2017-01-31 13:22 | DRG 291 ==
LOC: 2ANU 13:24 → EMEROO 13:24 → SUATTDRO 16:23 → 2ANU 17:15
PROVIDERS: ADMIT Hospitalist; ATTEND Internal Medicine

== ENCOUNTER 2017-08-25 15:04 | Inpatient (IN) ==
--- NOTE | 2017-08-25 18:09 | Emergency Department Note ---
Disposition Clinical Impression: Closed head injury Qualifiers: Encounter type: initial encounter Qualified Code(s): S09.90XA - Unspecified injury of head, initial encounter CHF (congestive heart failure) Qualifiers: Congestive heart failure type: unspecified congestive heart failure type Congestive heart failure chronicity: unspecified congestive heart failure chronicity Qualified Code(s): I50.9 - Heart failure, unspecified Disposition: Admitted As Inpatient Condition: Fair Time of Disposition: 20:42 Head Injury HPI - General Chief complaint: ED Head Injury Stated complaint: fall, head injury-on blood thinners Time Seen by Provider: 08/25/17 17:34 Source: patient Limitations: no limitations Nursing Notes Reviewed: Yes Vital Signs Reviewed: Yes - History of Present Illness HPI Narrative: Patient presents after he bent down to greens picker an object visited off and became lightheaded as does happen commonly however he did fall and did strike the left side of his head and does have a goose egg in this area. He is on Coumadin. The INR was approximately 4.53 days ago and the Coumadin was held 2 days ago and he did take 2 mg yesterday. He denies any pain in the head. No neck pain. No pain in the chest, abdomen or back. No numbness or weakness of the extremities, slurred speech, facial droop or confusion. He does have a history of 2 strokes with most recent being 1 year ago. No fever, vomiting, diarrhea, blood in the urine or stool. Social history stopped smoking about 20 years - Related Data Home Medications Medication Instructions Recorded Confirmed Albuterol Sulfate [Albuterol 2 puff IH Q6H PRN 01/19/17 01/26/17 Inhaler] Amiodarone [Cordarone] 200 mg PO HS 01/19/17 01/26/17 Atorvastatin [Lipitor] 40 mg PO HS 01/19/17 01/26/17 Carvedilol [Coreg] 25 mg PO BID 01/19/17 01/26/17 Levothyroxine Sodium [Levo-T] 100 mcg PO QAM 01/19/17 01/26/17 Potassium Chloride [K-Tab ER] 10 meq PO DAILY 01/19/17 01/26/17 Sertraline [Zoloft] 100 mg PO DAILY 01/19/17 01/26/17 Acetaminophen [Tylenol] 325 - 650 mg PO Q4H PRN 01/26/17 01/26/17 Aspirin 81 mg PO DAILY 01/26/17 01/26/17 Ergocalciferol (VITAMIN D2) 50,000 unit PO TH 01/26/17 01/26/17 [Vitamin D2] Melatonin 5 mg PO HS PRN 01/26/17 01/26/17 Multivitamin with Minerals/Lut 1 each PO DAILY 01/26/17 01/26/17 [Cerovite Senior Tablet] Nitroglycerin [Nitrostat] 0.4 mg SL Q5M PRN 01/26/17 01/26/17 Quetiapine Fumarate [Seroquel] 100 mg PO DAILY 01/26/17 01/26/17 Previous Rx's Medication Instructions Recorded Cefuroxime PO [Ceftin] 250 mg PO Q12HR #10 tablet 01/30/17 Furosemide [Lasix] 40 mg PO DAILY #0 01/30/17 Losartan [Cozaar] 12.5 mg PO DAILY #30 tablet 01/30/17 Mag Hydrox/Al Hydrox/Simeth 15 ml PO Q6HR PRN #0 udc 01/30/17 [Maalox] Oxycodone HCl/Acetaminophen 1 - 2 each PO Q4H PRN #30 tablet 01/30/17 [Percocet 5-325 mg Tablet] Warfarin [Coumadin] 2 mg PO WeSa@1800 tablet 01/30/17 Warfarin [Coumadin] 4 mg PO SuMoTuThFr@1800 tablet 01/30/17 Albuterol Sulfate [Albuterol 2 puff IH Q4HR #1 hfa.aer.ad 08/17/17 Inhaler] Benzonatate [Tessalon] 100 mg PO TID #15 capsule 08/17/17 Cephalexin [Keflex] 500 mg PO TID #30 capsule 08/17/17 PredniSONE [Deltasone] 20 mg PO DAILY #12 tablet 08/17/17 Amoxicillin/Clavulanate [Augmentin] 875 mg PO BIDWM #20 tablet 08/21/17 Ipratropium/Albuterol Neb [Duoneb] 3 ml IH Q6HR #60 vial.neb 08/21/17 Allergies/Adverse reactions: Allergies Allergy/AdvReac Type Severity Reaction Status Date / Time No Known Allergies Allergy Verified 08/25/17 15:49 Review of Systems: As Per HPI Past Medical History - Past Medical History Medical history: Reports: non-contributory, CVA, hepatitis, valvular heart disease, other Surgical history: Reports: heart valve replacement Psychiatric history: Reports: no psych history - Social History Smoking Status: Never smoker Smokeless Tobacco Status: No Alcohol use: Reports: none Drug use: Reports: none Physical Exam CONSTITUTIONAL: Well-appearing; well-nourished; A&O X3, in no apparent distress HEAD: Normocephalic; there is large goose egg at the left parieto-occipital area of the scalp but no active bleeding. No cuts or breaks in the skin EYES: PERRL, EOMI, no scleral icterus NOSE: The nose is normal in appearance without rhinorrhea NECK: Supple without rigidity, no ASIA, no pain with palpation posterior cervical spine RESP: Normal chest excursion with respiration; breath sounds with bilat rhonchi and wheezing CARD: Regular rhythm, without murmurs, rub or gallop ABD: Non-distended; non-tender, soft, without rigidity, rebound or guarding SKIN: Normal for age and race; warm and dry; no apparent lesions, no rash NEUROLOGICAL: Patient is alert and oriented times three. Cranial nerves III- XII are intact. Sensory and motor functions are intact. Strength is 5/5 for flexion and extension in all 4 extremities. Patellar DTRS are equal and intact. Finger to nose testing is equal and normal bilaterally. - General Limitations: no limitations General appearance: alert, in no apparent distress Course Vital Signs Temperature 97.8 F 08/25/17 15:44 Pulse Rate 71 08/25/17 15:44 Respiratory Rate 18 08/25/17 15:44 Blood Pressure 146/89 08/25/17 15:44 O2 Sat by Pulse Oximetry 97 08/25/17 15:44 Temperature 97.8 F 08/25/17 15:44 Pulse Rate 71 08/25/17 15:44 Respiratory Rate 18 08/25/17 21:04 Blood Pressure 152/102 08/25/17 21:04 O2 Sat by Pulse Oximetry 97 08/25/17 19:05 Oxygen Delivery Oxygen Delivery Room Air Head Injury - MDM Narrative Medical decision making narrative: Head CT is negative, there is no neck pain. The patient did have some lightheadedness after he stood up too quickly which she said is typical for him and not unusual and I do not feel that labs would be helpful in this situation. The patient does not have any history of bleeding and no recent suspect dehydration at this time and the patient will be discharged to follow up with primary care the beginning of the week. This was discussed with the patient and with his brother and they are comfortable with this approach. 1808 Patient does have bilateral rhonchi and wheezing and a chest x-ray was done and a breathing treatment was given. Chest x-ray does show pulmonary congestion and looking back on the chart the patient did have a elevated BNP over 1000 which is done about 6 months ago. He says he has never had a diagnosis of congestive heart failure but he has had some recent weight gain as well as bilateral lower extremity edema which comes and goes over the last 3 or 4 days. No orthopnea. His cough is dry and he has no fever so while this still could be infectious the concern would be for heart failure at this time so labs ordered and the patient will be admitted to the hospital. 2005 I did review the EKG showing a paced rhythm with a rate of 75 - Medical Records Medical records reviewed: Yes I reviewed the patient's medical records. - Lab Data Result diagrams: 08/25/17 20:00 08/25/17 20:00 Lab Results 08/25/17 08/25/17 08/25/17 Range/Units 20:00 20:00 20:00 WBC 9.9 (4.3-11.1) K/mcL RBC 3.46 L (4.19-5.50) M/mcL Hgb 11.4 L (12.9-16.9) g/dL Hct 34.2 L (37.5-50.1) % MCV 98.8 (83.0-100.0) fL MCH 32.9 (28.0-33.3) pg MCHC 33.3 (31.6-35.5) g/dL RDW 19.8 H (11.5-14.5) % Plt Count 210 (140-400) K/mcL MPV 10.9 (9.4-12.4) fL Immature Gran % 0.5 (0-4) % Seg Neutrophils % 72.6 % Lymphocytes % 13.4 % Monocytes % 12.1 % Eosinophils % 1.2 % Basophils % 0.2 % Neutrophils # 7.2 (1.6-8.9) K/mcL Lymphocytes # 1.3 (0.6-4.6) K/mcL Monocytes # 1.2 (0.0-1.3) K/mcL Eosinophils # 0.1 (0.0-0.6) K/mcL Basophils # 0.0 (0.0-0.2) K/mcL Sodium 137 (136-145) mEq/L Potassium 4.3 (3.5-4.5) mEq/L Chloride 101 (98-109) mEq/L Carbon Dioxide 30 H (19-29) mEq/L BUN 26 (8-26) mg/dL Creatinine 1.57 H (0.72-1.25) mg/dL Est GFR ( Amer) 55 L (> 60) Est GFR (Non-Af Amer) 46 L (> 60) BUN/Creatinine Ratio 17 (6-26) Glucose 93 (70-99) mg/dL Calculated Osmolality 288 (280-300) Calcium 9.6 (8.6-10.8) mg/dL Troponin I 0.03 (0-0.03) ng/mL B-Natriuretic Peptide (0-100) pg/mL 08/25/17 Range/Units 20:00 WBC (4.3-11.1) K/mcL RBC (4.19-5.50) M/mcL Hgb (12.9-16.9) g/dL Hct (37.5-50.1) % MCV (83.0-100.0) fL MCH (28.0-33.3) pg MCHC (31.6-35.5) g/dL RDW (11.5-14.5) % Plt Count (140-400) K/mcL MPV (9.4-12.4) fL Immature Gran % (0-4) % Seg Neutrophils % % Lymphocytes % % Monocytes % % Eosinophils % % Basophils % % Neutrophils # (1.6-8.9) K/mcL Lymphocytes # (0.6-4.6) K/mcL Monocytes # (0.0-1.3) K/mcL Eosinophils # (0.0-0.6) K/mcL Basophils # (0.0-0.2) K/mcL Sodium (136-145) mEq/L Potassium (3.5-4.5) mEq/L Chloride (98-109) mEq/L Carbon Dioxide (19-29) mEq/L BUN (8-26) mg/dL Creatinine (0.72-1.25) mg/dL Est GFR ( Amer) (> 60) Est GFR (Non-Af Amer) (> 60) BUN/Creatinine Ratio (6-26) Glucose (70-99) mg/dL Calculated Osmolality (280-300) Calcium (8.6-10.8) mg/dL Troponin I (0-0.03) ng/mL B-Natriuretic Peptide 4804 H (0-100) pg/mL - Radiology Data Radiology results reviewed: Yes I reviewed the patient's radiology results.
[2017-08-25] MEDS ORDERED: Ipratropium/Albuterol Neb 3 ML IH ONE (18:53)
[2017-08-25] MEDS ORDERED: Nitroglycerin 1 INCH/GM PACKET TP ONE (19:50)
[2017-08-25] MEDS ORDERED: Furosemide 40 MG/4 ML VIAL IVP ONE (19:50)
[2017-08-25 20:11] LABS: Basophils % 0.2 %; Eosinophils # 0.1 K/mcL (0.0-0.6); Eosinophils % 1.2 %; Hematocrit 34.2 % (37.5-50.1); Hemoglobin 11.4 g/dL (12.9-16.9); Immature Granulocytes % 0.5 % (0-4); Lymphocytes # 1.3 K/mcL (0.6-4.6); Lymphocytes % 13.4 %; Mean Corpuscular HGB Conc 33.3 g/dL (31.6-35.5); Mean Corpuscular Hemoglobin 32.9 pg (28.0-33.3); Mean Corpuscular Volume 98.8 fL (83.0-100.0); Mean Platelet Volume 10.9 fL (9.4-12.4); Monocytes # 1.2 K/mcL (0.0-1.3); Monocytes % 12.1 %; Neutrophils # 7.2 K/mcL (1.6-8.9); Platelet Count 210 K/mcL (140-400); Red Blood Count 3.46 M/mcL (4.19-5.50); Red Cell Distribution Width 19.8 % (11.5-14.5); Segmented Neutrophils % 72.6 %
[2017-08-25 20:25] LABS: Calcium 9.6 mg/dL (8.6-10.8); Potassium 4.3 mEq/L (3.5-4.5)
--- NOTE | 2017-08-25 21:23 | Internal Med History&Physical ---
<Al Carias - Last Filed: 08/25/17 22:48> Date of Encounter: 08/25/17 Time of Encounter: 21:21 Assessment and Plan (1) Acute on chronic systolic (congestive) heart failure Current visit: No Status: Acute ECHO 2016: EF35% up at [facility] ECHO performed here at [facility] on 05/05/14: EF 30-35% with severe global and segmental LV systolic dysfunction. Known CAD with previous CABG with SVG to RCA in 2012 Biventricular Pacemaker/Defibrillator in place Follows Dr. Bueno here for cardiology Last hospitalization was in January 2017 for CHF CXR shows pulmonary vascular congestion Exam with bilateral LE 2+ pitting edema, scattered wheezing with rhonchi/rales BNP 4804 Plan: Lasix to 40mg IV daily Medical management - ASA, Statin, BB, ARB ECHO ordered for the morning Cardiac diet - Low sodium, fluid restriction Strict I&Os Daily weights Compression stockings Cardiac monitoring PRN duo-nebs for SOB/wheezing (2) Lightheadedness Current visit: Yes Status: Acute Unknown etiology at this time VSS, no findings on EKG Starting workup: - ECHO - Orthostatic blood pressures BID for 2 days - Cardiac monitoring - Recommend further outpatient workup pending results (3) Closed head injury Current visit: Yes Status: Acute Left parietal closed head injury with small hemtoma and ecchymosis present TTP Head CT neg Neuro exam benign PRN pain medications Qualifiers: Encounter type: initial encounter Qualified Code(s): S09.90XA - Unspecified injury of head, initial encounter (4) Cardiomyopathy Current visit: Yes Status: Acute ECHO 2016: EF35% up at [facility] ECHO performed here at [facility] on 05/05/14: EF 30-35% with severe global and segmental LV systolic dysfunction. Known CAD with previous CABG with SVG to RCA in 2012 See above for management Qualifiers: Cardiomyopathy type: ischemic Qualified Code(s): I25.5 - Ischemic cardiomyopathy (5) Biventricular ICD (implantable cardioverter-defibrillator) in place Current visit: Yes Status: Chronic History of ischemic cardiomyopathy Paced rhythm on EKG with rate in 70s Cardiac monitoring (6) HTN (hypertension) Current visit: Yes Status: Chronic Appears to be stable at this time. Continued home meds - Losartan, Coreg Qualifiers: Hypertension type: essential hypertension Qualified Code(s): I10 - Essential (primary) hypertension (7) Hypercholesteremia Current visit: Yes Status: Chronic Continued home statin therapy (8) Hypothyroidism Current visit: Yes Status: Chronic TSH and free T4 ordered. Previously in April were both WNL. Restarted Levothyroxine 100mcg qd Will adjust accordingly Qualifiers: Hypothyroidism type: unspecified Qualified Code(s): E03.9 - Hypothyroidism , unspecified (9) CKD (chronic kidney disease) stage 3, GFR 30-59 ml/min Current visit: No Status: Chronic Cr on arrival 1.57. Better than baseline. Will continue to monitor. (10) Aortic valve replaced Current visit: No Status: Chronic AV replaced 2004 Wafarin therapy Follow anti-coagulation clinic and current schedule below: Dosage Size (mg): 2 mg Daily Dose (Sun): 1 # of Tablets (Sun): 0.5 Daily Dose (Mon): 2 # of Tablets (Mon): 2 Daily Dose (Tue): 0 # of Tablets (Tue): 0 Daily Dose (Wed): 1 # of Tablets (Wed): 0.5 Daily Dose (Yelena): 2 # of Tablets (Yelena): 1 Daily Dose (Fri): 1 # of Tablets (Fri): 0.5 Daily Dose (Sat): 2 # of Tablets (Sat): 1 Total Doses (mg): 9 (11) History of CVA (cerebrovascular accident) Current visit: No Status: Chronic CVA back in August 2016. Residual deficits in right hand with muscle weakness, right facial droop and speech deficits Working with ST, PT and OT at home Will continue PT and OT therapy during his inpatient stay (12) DVT prophylaxis Current visit: No Status: Acute Will continue Wafarin and ASA. Add EPCDs Internal Medicine - H&P: HPI Chief complaint: fall Admitted From: Home Plans for Post Hospital Care: Home History of present illness: Mr. Combs is a very pleasant 56 year old male with a past medical history of HTN, HLD, systolic CHF, Biventricular ICD, s/p Aortic valve replacement, hypothyroidism, CKD, CVA with right sided residual deficits and hyperparathyroidism who presents to the [facility] Emergency Department with a chief complaint of fall this afternoon. He reports that he felt dizzy while leaning down to pick something up off the ground, resulting in a fall. Patient hit the back of his head. He states that there is bruising about his left parietal region with swelling. No LOC reported and history of this previously. He states that if he stands up or gets down too quickly he feels lightheaded occasionally. Additionally, he was seen back on 08/17/17 here at the urgent care and diagnosed with acute bronchitis. Patient was discharged home with Keflex and tessalon. He reports that his cough has resolved and denies any SOB, CP, palpitations, fever, hemoptysis or fatigue. On arrival to the ED, vital signs were stable, no leukocytosis, Cr 1.57, BNP 4804 and trop neg. EKG showing paced rhythm at 75. CXR demonstrating pulmonary congestion and Head CT neg. He was given Nitro, Lasix and duonebs in the ED. On evaluation, he goes on to state that he was last hospitalized in January 2017 for CHF. Last known ECHO was 2015 showing EF35% up at [facility]. Most recent ECHO performed here at [facility] was on 05/05/14 showing EF 30-35% with severe global and segmental LV systolic dysfunction. He has previous CABG with SVG to RCA in 2012. He reports 1PPD for 2 years 20 year ago. No EtOH abuse but has history of crack cocaine 1.5 years ago. Patient is following cardiology with Dr. Bueno. We will admit patient for CHF for further workup and management. Past Med Surg Social Fam HX - Past Medical History Medical history: non-contributory, CVA, hepatitis, valvular heart disease, other Psychiatric history: no psych history - Past Surgical History Surgical History: heart valve replacement - Social History Smoking Status: Never smoker Smokeless Tobacco Status: No Alcohol use: none Drug use: none - Family History Father Living Status: Hx Family Respiratory Disorders: Yes Internal Medicine - H&P: Meds Albuterol Sulfate [Albuterol Inhaler] 2 puff IH Q6H PRN 01/19/17 [History] Amiodarone [Cordarone] 200 mg PO HS 01/19/17 [History] Atorvastatin [Lipitor] 40 mg PO HS 01/19/17 [History] Carvedilol [Coreg] 25 mg PO BID 01/19/17 [History] Levothyroxine Sodium [Levo-T] 100 mcg PO QAM 01/19/17 [History] Potassium Chloride [K-Tab ER] 10 meq PO DAILY 01/19/17 [History] Sertraline [Zoloft] 100 mg PO DAILY 01/19/17 [History] Acetaminophen [Tylenol] 325 - 650 mg PO Q4H PRN 01/26/17 [History] Aspirin 81 mg PO DAILY 01/26/17 [History] Ergocalciferol (VITAMIN D2) [Vitamin D2] 50,000 unit PO TH 01/26/17 [History] Melatonin 5 mg PO HS PRN 01/26/17 [History] Multivitamin with Minerals/Lut [Cerovite Senior Tablet] 1 each PO DAILY [History] Nitroglycerin [Nitrostat] 0.4 mg SL Q5M PRN 01/26/17 [History] Quetiapine Fumarate [Seroquel] 100 mg PO DAILY 01/26/17 [History] Cefuroxime PO [Ceftin] 250 mg PO Q12HR #10 tablet 01/30/17 [Rx] Furosemide [Lasix] 40 mg PO DAILY #0 01/30/17 [Rx] Losartan [Cozaar] 12.5 mg PO DAILY #30 tablet 01/30/17 [Rx] Mag Hydrox/Al Hydrox/Simeth [Maalox] 15 ml PO Q6HR PRN #0 udc 01/30/17 [Rx] Oxycodone HCl/Acetaminophen [Percocet 5-325 mg Tablet] 1 - 2 each PO Q4H PRN # 30 tablet 01/30/17 [Rx] Warfarin [Coumadin] 2 mg PO WeSa@1800 tablet 01/30/17 [Rx] Warfarin [Coumadin] 4 mg PO SuMoTuThFr@1800 tablet 01/30/17 [Rx] Albuterol Sulfate [Albuterol Inhaler] 2 puff IH Q4HR #1 hfa.aer.ad 08/17/17 [Rx] Benzonatate [Tessalon] 100 mg PO TID #15 capsule 08/17/17 [Rx] Cephalexin [Keflex] 500 mg PO TID #30 capsule 08/17/17 [Rx] PredniSONE [Deltasone] 20 mg PO DAILY #12 tablet 08/17/17 [Rx] Amoxicillin/Clavulanate [Augmentin] 875 mg PO BIDWM #20 tablet 08/21/17 [Rx] Ipratropium/Albuterol Neb [Duoneb] 3 ml IH Q6HR #60 vial.neb 08/21/17 [Rx] 3 Allergy/AdvReac Type Severity Reaction Status Date / Time No Known Allergies Allergy Verified 08/25/17 15:49 All Systems PM: A 10-system review of systems was performed and is negative for pertinent findings except as documented above in the HPI. - Constitutional Constitutional: no fatigue, no fever(s) - EENT Eyes: no change in vision - Cardiovascular Cardiovascular ROS IM: as per HPI, dyspnea on exertion, lightheadedness, no chest pain, no orthopnea, no paroxysmal nocturnal dyspnea - Respiratory Respiratory: as per HPI, cough, wheezing, no chest congestion - Gastrointestinal Gastrointestinal: no abdominal pain, no constipation, no diarrhea - Genitourinary Genitourinary ROS male: no dysuria - Musculoskeletal Musculoskeletal ROS IM: stiffness - Integumentary Integumentary IM: no new lesions - Neurological Neurological ROS: as per HPI, no headache(s) - Psychiatric Psychiatric: no behavioral changes - Constitutional Vitals: Temp Pulse Resp BP Pulse Ox 97.8 F 71 18 152/102 97 08/25/17 15:44 08/25/17 15:44 08/25/17 21:04 08/25/17 21:04 08/25/17 19:05 General appearance: Present: cooperative, A&O X 3, no acute distress, answers questions appropriately - Expanded Head Exam Head exam expanded: Present: hematoma (left parietal area with ecchymosis) - Eye Eye exam: Present: EOMI, conjuntiva pink, sclera anicteric - ENT ENT exam: Present: mucous membranes moist - Neck Neck exam general surgery: Present: supple, trachea midline - Respiratory Respiratory exam: Present: rales (distant), rhonchi (scattered), wheezes ( scattered). Absent: accessory muscle use, chest wall tenderness, prolonged expiratory phase, respiratory distress - Cardiovascular Cardiovascular exam: Present: RRR, +S1, +S2, tachycardia - GI/Abdominal GI/Abdominal exam: Present: normal bowel sounds, soft. Absent: tenderness - Extremities Exam Extremities exam: Present: pedal edema (2+ pitting), warm. Absent: calf tenderness - Neurological Exam Neurological exam: Present: alert, oriented X3, reflexes normal. Absent: no focal deficits (residual right facial droop with right hand flexor contracture with decreased md pediatric allergist strength) - Psychiatric Psychiatric exam: Present: normal affect, normal mood - Skin Skin exam: Present: dry, normal color, warm Internal Med - H&P Results - Labs CBC & Chem 7: 08/25/17 20:00 08/25/17 20:00 <Cesar Nina - Last Filed: 08/26/17 01:31> Date of Encounter: 08/26/17 Internal Medicine - H&P: HPI History of present illness: Mr. Combs is a 56 year old male All Systems PM: A 10-system review of systems was performed and is negative for pertinent findings except as documented above in the HPI. - Constitutional Vitals: Temp Pulse Resp BP Pulse Ox 97.7 F 74 14 151/88 97 08/25/17 21:29 08/25/17 21:29 08/25/17 23:46 08/25/17 21:29 08/25/17 23:46 Internal Med - H&P Results - Labs CBC & Chem 7: 08/25/17 20:00 08/25/17 20:00 - Attending Attestation I examined this patient and my medical decision-making was reviewed with the Resident Physician. I agree with the documented findings, disposition and treatment plan as described except to the extent set forth below. Reported fall this afternoon. He was bending down to peanut picker and object, got up too fast and fell. Denies SOB or breathing issues. Reported some cough for 1 week Hx of CVA with chronic right side weakness/droop AVR on coumadin General - AAO x 3 Psych - Appropriate affect/speech. No agitation Eyes - JOSE. Eye lids intact. No scleral icterus Heart - Sinus. RRR. S1 and S2 present. Lung - Adequate air entry b/l,Diffuse wheezes appreciated. bibasal crcakles GI - Soft, non-tender. No hepatosplenomegaly/ascites. BS+ - No CVA/suprapubic tenderness or palpable bladder distension CT/CT head/brain wo con IMPRESSION: No acute intracranial abnormality. XR/XR chest 1V portable IMPRESSION: Stable cardiomegaly. Suspected pulmonary vascular congestion. EKG personally reviewed with V-paced, rate 75 A/P Mechanical fall - check orthostats - PT/OT - tele given cardiomyopathy Acute bronchitis - duonebs therapy Chronic CHF Cardiomyopathy - appears compensated clinically Hx of CVA
[2017-08-25] MEDS ORDERED: Ondansetron 4 MG/2 ML VIAL IVP PRN (21:44)
[2017-08-25] MEDS ORDERED: Naloxone 0.4 MG/ML INJ IVP PRN (21:44)
[2017-08-25] MEDS ORDERED: Acetaminophen 325 MG TABLET PO PRN (21:44)
[2017-08-25] MEDS ORDERED: Ipratropium/Albuterol Neb 3 ML IH PRN (21:47)
[2017-08-25] MEDS ORDERED: Melatonin 3 MG TABLET PO PRN (21:48)
[2017-08-25 22:19] LABS: Prothrombin Time 21.8 Seconds (9.4-12.1)
[2017-08-25 22:57] LABS: Thyroid Stimulating Hormone 6.71 mcIU/mL (0.350-4.840)
[2017-08-25] MEDS: Ipratropium/Albuterol Neb 3 ML IH SCH ×2 (23:45→23:50)
[2017-08-26] MEDS: Ipratropium/Albuterol Neb 3 ML IH SCH ×6 (03:36→23:43)
[2017-08-26 04:20] LABS: Calcium 8.6 mg/dL (8.6-10.8)
[2017-08-26] MEDS: Benzonatate 100 MG CAPSULE PO SCH ×3 (08:43→21:19)
[2017-08-26] MEDS: Furosemide 40 MG/4 ML VIAL IVP SCH (08:43)
[2017-08-26] MEDS: Aspirin 81 MG TAB.CHEW PO SCH (08:43)
--- NOTE | 2017-08-26 16:45 | Event Note ---
Date of Encounter: 08/26/17 Time of Encounter: 16:44 Chart reviewed. Continue with current IV diuresis. Repeat echo pending. May need to consult cardiology. Reassess fluid status tomorrow, await echo results.
[2017-08-26] MEDS ORDERED: *HR* Warfarin 2 MG TABLET PO SCH (18:00)
[2017-08-27] MEDS: Ipratropium/Albuterol Neb 3 ML IH SCH ×6 (03:39→23:43)
[2017-08-27 04:40] LABS: Calcium 8.8 mg/dL (8.6-10.8); Potassium 4.3 mEq/L (3.5-4.5)
[2017-08-27] MEDS: Benzonatate 100 MG CAPSULE PO SCH ×3 (07:40→20:09)
[2017-08-27] MEDS: Furosemide 40 MG/4 ML VIAL IVP SCH ×2 (07:40→20:09)
[2017-08-27] MEDS: Aspirin 81 MG TAB.CHEW PO SCH (07:40)
[2017-08-27 08:38] LABS: INR 1.7; Prothrombin Time 18.1 Seconds (9.4-12.1)
--- NOTE | 2017-08-27 11:05 | Internal Med Progress Note ---
Date of Encounter: 08/27/17 Time of Encounter: 11:02 - Assessment and plan (1) Acute on chronic systolic (congestive) heart failure Current Visit: No Status: Acute Assessment and plan: per hx. has known ischemic cardiomyopathy with BiV ICD. 08/26/2017 TTE with EF 35%, severe left ventricle systolic dysfunction (unchanged from 08/2016 [facility] TTE) . BNP 5K, CXR with vascular congestion. Increase IV Lasix to BID. Holding home BB, ARB with soft/borderline BP and increase in Lasix. Daily weights, strict I&Os. Cardiology consulted (2) Fall Current Visit: Yes Status: Acute Assessment and plan: on day of presentation. 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 He did not hit his head, no loss of consciousness. Has hematoma to [place] of head. Head CT nonacute. Lives home alone. PT/OT consult Qualifiers: Encounter type: initial encounter Qualified Code(s): W19.XXXA - Unspecified fall, initial encounter (3) HTN (hypertension) Current Visit: Yes Status: Chronic Assessment and plan: per hx. BP soft/borderline. Holding home BB, ARB with increase in IV Lasix. Monitor BP Qualifiers: Hypertension type: essential hypertension Qualified Code(s): I10 - Essential (primary) hypertension (4) CKD (chronic kidney disease) stage 3, GFR 30-59 ml/min Current Visit: No Status: Chronic Assessment and plan: Cr on arrival 1.57. Better than baseline. Will continue to monitor closely with IV diuresis (5) CVA (cerebral vascular accident) Current Visit: No Status: Acute Assessment and plan: per hx on 08/2016. With residual right hand weakness, right facial droop and slurred speech. PT/OT consult. Continue home ASA, BB, statin Qualifiers: CVA mechanism: unspecified Qualified Code(s): I63.9 - Cerebral infarction, unspecified (6) Hypothyroidism Current Visit: Yes Status: Chronic Assessment and plan: per hx. TSH 6.7. Free T4 normal. Suspect subclinical hypothyroidism. Cont home levothyroxine. Recommend repeat TSH with PCP in 6-8 weeks. Qualifiers: Hypothyroidism type: unspecified Qualified Code(s): E03.9 - Hypothyroidism , unspecified (7) Paroxysmal atrial fibrillation Current Visit: No Status: Chronic Assessment and plan: per hx. Rate controlled. Cont home BB, coumadin (8) DVT prophylaxis Current Visit: No Status: Acute Assessment and plan: coumadin - Subjective Interval history: Seen and examined at bedside, information obtained from chart review and patient report. Had an uneventful night, says he slept okay. He has no real complaints; reports lower extremity edema is much improved. Denies chest pain, no shortness of breath. - Constitutional Vitals: Temp Pulse Resp BP Pulse Ox 98.5 F 60 15 119/78 94 08/27/17 06:29 08/27/17 06:29 08/27/17 08:26 08/27/17 06:29 08/27/17 08:26 General appearance: Present: cooperative, A&O X 3, no acute distress, answers questions appropriately - Head Head exam: Present: normocephalic Additional comments: Hematoma to left occipital area - Eye Eye exam: Present: PERRL, conjuntiva pink, sclera anicteric Pupils: Present: PERRL - Neck Neck exam general surgery: Present: supple, trachea midline. Absent: lymphadenopathy - Respiratory Respiratory exam: Present: CTAB. Absent: accessory muscle use, rales, rhonchi, wheezes - Cardiovascular Cardiovascular exam: Present: RRR, +S1, +S2. Absent: diastolic murmur, gallop, rubs, systolic murmur - GI/Abdominal GI/Abdominal exam: Present: normal bowel sounds, soft, no peritoneal signs. Absent: distended, tenderness - Extremities Exam Extremities exam: Present: warm, radial pulses palpable and symmetrical. Absent : calf tenderness, cyanotic, pedal edema - Neurological Exam Neurological exam: Present: CN II-XII intact, oriented X3, no focal deficits, speech deficit. Absent: pronater drift, facial droop - Skin Skin exam: Present: dry, intact Internal Medicine: Result - Labs CBC & Chem 7: 08/25/17 20:00 08/27/17 03:25 Labs: BMP 08/27/17 03:25 Sodium 136 Potassium 4.3 Chloride 103 Carbon Dioxide 29 BUN 28 H Creatinine 1.57 H Glucose 78 Calcium 8.8 - ABG Interpretation ABG results: PT/INR, D-dimer PT 18.1 Seconds (9.4-12.1) H 08/27/17 08:20 - Impressions Impressions Echocardiogram 08/26/17 21:47 Impressions: LVEF 30-35%. Severely dilated left ventricle. Severe global and segmental left ventricular systolic dysfunction. Atypical septal motion consistent with paced rhythm. Normal right ventriular size with mild hypokinesis. No evidence of pulmonary hypertension. A device lead was visualized in the right atrium and right ventricle. No significant valvular dysfunction. Left Ventricular Wall Motion: Rest Echo Findings The apex, apical inferior, apical anterior, mid anterior, basal anterior, apical septal, mid inferior septal, basal inferior septal, apical lateral, mid anterior lateral, basal anterior lateral, mid anterior septal, mid inferior lateral, basal anterior septal and basal inferior lateral vo were hypokinetic. The mid inferior and basal inferior vo were akinetic. Findings: Study Quality * Technically adequate exam. ECG Findings * Paced rhythm. Left Ventricle * LVEF 30-35%. * Severely dilated left ventricle. * Severe global and segmental left ventricular systolic dysfunction. * Atypical septal motion consistent with paced rhythm. Right Ventricle * Normal right ventriular size with mild hypokinesis. Left Atrium * Mild to moderately dilated left atrium. Right Atrium * Mild to moderately dilated right atrium. Aortic Valve * Aortic valve not well visualized. * Trace aortic regurgitation. * No aortic stenosis. Mitral Valve * Mildly thickened mitral valve leaflets. * Trace mitral regurgitation. * No mitral stenosis. Tricuspid Valve * Normal tricuspid valve structure and function. * Trace tricuspid regurgitation. * No evidence of pulmonary hypertension. Pulmonic Valve * Normal pulmonic valve structure and function. * Trace pulmonic regurgitation. Aorta * Normally sized aortic root. Pericardium * The pericardium appears normal. IVC * The IVC is dilated. * < 50% respiratory change. Device lead * A device lead was visualized in the right atrium and right ventricle. Pulmonary Artery * Normal visualized portions of the main pulmonary artery. Consult Discharge Plan - Plan Referrals: Vince Sanchez MD [Primary Care Provider] -
[2017-08-27] MEDS ORDERED: Warfarin perPT PO PRN (18:00)
[2017-08-27] MEDS ORDERED: *HR* Warfarin 1 MG TABLET PO SCH (18:00)
[2017-08-27] MEDS ORDERED: *HR* Warfarin 3 MG TABLET PO ONE (18:00)
[2017-08-28] MEDS: Ipratropium/Albuterol Neb 3 ML IH SCH ×6 (04:03→23:09)
[2017-08-28 06:03] LABS: INR 1.8; Prothrombin Time 19.3 Seconds (9.4-12.1)
[2017-08-28 06:19] LABS: Calcium 8.4 mg/dL (8.6-10.8); Potassium 3.8 mEq/L (3.5-4.5)
[2017-08-28] MEDS: Furosemide 40 MG/4 ML VIAL IVP SCH ×2 (08:01→16:57)
[2017-08-28] MEDS: Aspirin 81 MG TAB.CHEW PO SCH (08:02)
[2017-08-28] MEDS: Benzonatate 100 MG CAPSULE PO SCH ×3 (08:02→20:45)
--- NOTE | 2017-08-28 09:38 | Cardiology Consult Note ---
<Moose Salgado - Last Filed: 08/28/17 14:00> Date of Encounter: 08/28/17 Time of Encounter: 08:45 Assessment and Plan (1) Acute on chronic systolic (congestive) heart failure Current Visit: No Status: Acute Known Hx of CHF; Last hospitalization for CHF in January 2017. Follows Dr. Bueno here for cardiology. -CXR: pulmonary vascular congestion -BNP: 4854 ECHO performed on 08/26/17; demonstrated the following: -LVEF 30-35%. -Severely dilated left ventricle. -Severe global and segmental L ventricular systolic dysfunction. -Atypical septal motion consistent with paced rhythm. -A device lead was visualized in the RA and RV Plan: -Lasix 40mg IV BID; continue with diuresis for the next 24 hours. -Cardiac diet; Low sodium, fluid restriction, Strict I&Os, Daily weights -Continuous cardiac monitoring -Duo-nebs 3ml Q4 PRN (2) Cardiomyopathy Current Visit: Yes Status: Acute -ECHO 2015: EF35% at [facility] -ECHO at [facility] 05/05/14: EF 30-35% with severe global and segmental LV systolic dysfunction. -Known CAD with previous CABG with SVG to RCA in 2012 -Biventricular Pacemaker/Defibrillator in place -Amiodarone 200 mf PO Daily restarted. Qualifiers: Cardiomyopathy type: ischemic Qualified Code(s): I25.5 - Ischemic cardiomyopathy (3) Biventricular ICD (implantable cardioverter-defibrillator) in place Current Visit: Yes Status: Chronic History of ischemic cardiomyopathy. HR this morning was 60 bpm Recommend device interrogation. (4) Aortic valve replaced Current Visit: No Status: Chronic AV replaced 2004 Currently on Coumadin (5) Lightheadedness Current Visit: Yes Status: Acute Resolved EKG unremarkable - Orthostatic blood pressures BID x2 days - Cardiac monitoring (6) Hypercholesteremia Current Visit: Yes Status: Chronic Lipitor 40 mg PO HS (7) HTN (hypertension) Current Visit: Yes Status: Chronic Patient has a known history of HTN. Currently well controlled at 113/74. -Coreg 6.25 PO BID Qualifiers: Hypertension type: essential hypertension Qualified Code(s): I10 - Essential (primary) hypertension Discussion w patient/family: The assessment and plan as outlined above was discussed with the patient and/or family members who expressed understanding and agreement. All questions were answered. Thank you for involving us in the care of your patient. Please call with any questions. History of Present Illness Consult date: 08/28/17 Chief complaint: Fall, dizziness History of present illness: Mr. Combs is a 56 year old male with a PMH of HTN, HLD, systolic CHF, biventricular ICD, s/p aortic valve replacement, CABG in 2012, hypothyroidism, CVA who presented to the hospital after a fall. Patient reported feeling dizzy after bending over to pick something up off the ground, resulting in falling and hitting the back of his head. Patient had bruising in the left parietal region with swelling. Patient denied having any LOC. Patient is on Coumadin; last INR was 4.[address] scan was performed, which was unremarkable. CXR demonstrated the presence of pulmonary congestion. Patient was given nitroglycerin, Lasix, DuoNeb's. Patient was last hospitalized in January 2017 for CHF. Echocardiogram in 2015 demonstrated an EF of 35%. This echo was performed at [facility]. Echocardiogram on 05/05/14 demonstrated an EF of 30-35% with severe global and segmental left ventricular systolic dysfunction. Patient had a CABG with SVG to RCA in 2012. He admits to smoking 1 PPD for 2 years 20 years ago. He also admits to use of crack cocaine 1.5 years ago. Patient was seen and examined at bedside this morning. He states that he is feeling well. He denies having any cough, shortness of breath, dizziness, lightheadedness, or chest pain. Patient is resting comfortably in bed and has no complaints this time. No LE edema, JVD present. Past Med Surg Social Fam HX - Past Medical History Medical history: CHF, coronary artery disease, CVA, hepatitis, hyperlipidemia, hypertension, renal disease, thyroid disease, valvular heart disease, other Psychiatric history: no psych history - Past Surgical History Surgical History: cholecystectomy, heart valve replacement, AICD, pacemaker - Social History Smoking Status: Never smoker Smokeless Tobacco Status: No Alcohol use: none Drug use: none - Family History Father Living Status: Cause of : Cancer Hx Family Respiratory Disorders: Yes Hx Family Cancer: Yes Medications and Allergies Albuterol Sulfate [Albuterol Inhaler] 2 puff IH Q6H PRN 01/19/17 [History] Amiodarone [Cordarone] 200 mg PO HS 01/19/17 [History] Atorvastatin [Lipitor] 40 mg PO HS 01/19/17 [History] Carvedilol [Coreg] 25 mg PO BID 01/19/17 [History] Levothyroxine Sodium [Levo-T] 100 mcg PO QAM 01/19/17 [History] Potassium Chloride [K-Tab ER] 10 meq PO DAILY 01/19/17 [History] Sertraline [Zoloft] 100 mg PO DAILY 01/19/17 [History] Acetaminophen [Tylenol] 325 - 650 mg PO Q4H PRN 01/26/17 [History] Aspirin 81 mg PO DAILY 01/26/17 [History] Ergocalciferol (VITAMIN D2) [Vitamin D2] 50,000 unit PO TH 01/26/17 [History] Melatonin 5 mg PO HS PRN 01/26/17 [History] Multivitamin with Minerals/Lut [Cerovite Senior Tablet] 1 each PO DAILY [History] Nitroglycerin [Nitrostat] 0.4 mg SL Q5M PRN 01/26/17 [History] Quetiapine Fumarate [Seroquel] 200 mg PO HS 01/26/17 [History] Furosemide [Lasix] 40 mg PO DAILY #0 01/30/17 [Rx] Mag Hydrox/Al Hydrox/Simeth [Maalox] 15 ml PO Q6HR PRN #0 udc 01/30/17 [Rx] Amoxicillin/Clavulanate [Augmentin] 875 mg PO BIDWM #20 tablet 08/21/17 [Rx] Ipratropium/Albuterol Neb [Duoneb] 3 ml IH Q6HR #60 vial.neb 08/21/17 [Rx] Warfarin [Coumadin] 1 mg PO SUWEFR 08/26/17 [History] Warfarin [Coumadin] 2 mg PO MOTHSA 08/26/17 [History] 3 Allergy/AdvReac Type Severity Reaction Status Date / Time No Known Allergies Allergy Verified 08/25/17 15:49 All Systems Review: A 10-system review of systems was performed and is negative for pertinent findings except as documented above in the HPI. - Constitutional Constitutional: no anorexia, no fever(s) - Cardiovascular Cardiovascular: no orthopnea, no paroxysmal nocturnal dyspnea, no rapid heart rate, no slow heart rate Physical Examination Vital Signs, Last 4 Hours Temp Pulse Resp BP Pulse Ox 08/28/17 08:11 18 98 08/28/17 06:59 98.7 F 60 18 113/74 97 General: No Apparent Distress Neck: No JVD Cardiac: Reg Rate and Rhythm, Normal S1 and S2 Lungs: Normal Breath Sounds Extremities: No Edema, Normal Pulses Results 08/25/17 20:00 08/28/17 04:20 Lab Results 08/28/17 08/28/17 04:20 04:20 INR 1.8 Sodium 138 Potassium 3.8 Chloride 102 Carbon Dioxide 30 H BUN 29 H Creatinine 1.65 H Glucose 79 Calcium 8.4 L Consult Discharge Plan - Plan Referrals: Vince Sanchez MD [Primary Care Provider] - <Saritha Pascual - Last Filed: 08/28/17 15:11> Date of Encounter: 08/28/17 - Attending Attestation I examined this patient and my medical decision-making was reviewed with the Resident Physician. I agree with the documented findings, disposition and treatment plan. Mr. Combs presented after sustaining a fall, which appears to be somewhat mechanical. He states that he bent over to pick something up, and upon standing lost his balance and fell over. He denies loss of consciousness. Possibly an element of orthostasis. Blood pressures however, have been normal. He feels back to his usual state of health now. His echo demonstrates no worsening of known cardiomyopathy, EF 30-35%. His mechanical aortic valve appears to be functioning normally. However, he does appear to be fluid overloaded. Recommend another 24h of IV diuresis then return to PO maintenance. We will perform device interrogation today. Will restart amiodarone for known AFIB. Will also restart coreg at lower dose, 6.25mg BID from 25mg BID. He is on coumadin for a mechanical aortic valve, and additionally AFIB. Recommend PT/OT evaluation prior to discharge home given mechanical instability. Assessment and Plan Discussion w patient/family: The assessment and plan as outlined above was discussed with the patient and/or family members who expressed understanding and agreement. All questions were answered. Thank you for involving us in the care of your patient. Please call with any questions. History of Present Illness History of present illness: Mr. Combs is a 56 year old male All Systems Review: A 10-system review of systems was performed and is negative for pertinent findings except as documented above in the HPI. Physical Examination Vital Signs, Last 4 Hours Temp Pulse Resp BP Pulse Ox 08/28/17 11:14 16 99 08/28/17 10:58 98.1 F 60 18 101/66 96 Results 08/25/17 20:00 08/28/17 04:20 Lab Results 08/28/17 08/28/17 04:20 04:20 INR 1.8 Sodium 138 Potassium 3.8 Chloride 102 Carbon Dioxide 30 H BUN 29 H Creatinine 1.65 H Glucose 79 Calcium 8.4 L
--- NOTE | 2017-08-28 11:11 | Internal Med Progress Note ---
Date of Encounter: 08/28/17 Time of Encounter: 11:04 - Assessment and plan (1) Acute on chronic systolic (congestive) heart failure Current Visit: No Status: Acute Assessment and plan: per hx. has known ischemic cardiomyopathy with BiV ICD. 08/26/2017 TTE with EF 35%, severe left ventricle systolic dysfunction (unchanged from 08/2016 [facility] TTE) . BNP 5K, CXR with vascular congestion. Still with crackles and lower ext edema on 08/27, increase IV Lasix to BID. Holding home BB, ARB with soft/ borderline BP and increase in Lasix. Daily weights, strict I&Os. Cardiology consulted (2) Fall Current Visit: Yes Status: Acute Assessment and plan: on day of presentation. 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 He did not hit his head, no loss of consciousness. Has hematoma to [place] of head. Head CT nonacute. Lives home alone. PT/OT consult Qualifiers: Encounter type: initial encounter Qualified Code(s): W19.XXXA - Unspecified fall, initial encounter (3) HTN (hypertension) Current Visit: Yes Status: Chronic Assessment and plan: per hx. BP soft/borderline. Holding home BB, ARB with increase in IV Lasix. Monitor BP Qualifiers: Hypertension type: essential hypertension Qualified Code(s): I10 - Essential (primary) hypertension (4) CKD (chronic kidney disease) stage 3, GFR 30-59 ml/min Current Visit: No Status: Chronic Assessment and plan: Cr on arrival 1.57. Slight increase on 08/28 to 1.6. Monitor closely with IV diuresis (5) CVA (cerebral vascular accident) Current Visit: No Status: Acute Assessment and plan: per hx on 08/2016. With residual right hand weakness, right facial droop and slurred speech. PT/OT consult. Continue home ASA, BB, statin Qualifiers: CVA mechanism: unspecified Qualified Code(s): I63.9 - Cerebral infarction, unspecified (6) Hypothyroidism Current Visit: Yes Status: Chronic Assessment and plan: per hx. TSH 6.7. Free T4 normal. Suspect subclinical hypothyroidism. Cont home levothyroxine. Recommend repeat TSH with PCP in 6-8 weeks. Qualifiers: Hypothyroidism type: unspecified Qualified Code(s): E03.9 - Hypothyroidism , unspecified (7) Paroxysmal atrial fibrillation Current Visit: No Status: Chronic Assessment and plan: per hx. Rate controlled. Cont home BB, coumadin (8) DVT prophylaxis Current Visit: No Status: Acute Assessment and plan: coumadin - Time Spent With Patient less than 15 minutes - Subjective Interval history: Seen and examined at bedside; patient says he feels well and has no complaints. Denies SOB, says lower extremity edema. Says he is voiding without difficulty - Constitutional Vitals: Temp Pulse Resp BP Pulse Ox 98.1 F 60 18 101/66 96 08/28/17 10:58 08/28/17 10:58 08/28/17 10:58 08/28/17 10:58 08/28/17 10:58 General appearance: Present: cooperative, A&O X 3, no acute distress, answers questions appropriately - Head Head exam: Present: normocephalic. Absent: normal inspection Additional comments: hematoma to left crown of head - Eye Eye exam: Present: PERRL, conjuntiva pink, sclera anicteric Pupils: Present: PERRL - Neck Neck exam general surgery: Present: supple, trachea midline. Absent: lymphadenopathy - Respiratory Respiratory exam: Present: CTAB. Absent: accessory muscle use, rales, rhonchi, wheezes - Cardiovascular Cardiovascular exam: Present: RRR, +S1, +S2. Absent: diastolic murmur, gallop, rubs, systolic murmur - GI/Abdominal GI/Abdominal exam: Present: normal bowel sounds, soft, no peritoneal signs. Absent: distended, tenderness Additional comments: obese - Extremities Exam Extremities exam: Present: warm, radial pulses palpable and symmetrical. Absent : calf tenderness, cyanotic, pedal edema - Neurological Exam Neurological exam: Present: CN II-XII intact, oriented X3, no focal deficits. Absent: pronater drift, facial droop, speech deficit - Skin Skin exam: Present: dry, intact Internal Medicine: Result - Labs CBC & Chem 7: 08/25/17 20:00 08/28/17 04:20 Labs: BMP 08/28/17 04:20 Sodium 138 Potassium 3.8 Chloride 102 Carbon Dioxide 30 H BUN 29 H Creatinine 1.65 H Glucose 79 Calcium 8.4 L - ABG Interpretation ABG results: PT/INR, D-dimer PT 19.3 Seconds (9.4-12.1) H 08/28/17 04:20 Consult Discharge Plan - Plan Referrals: Vince Sanchez MD [Primary Care Provider] -
--- NOTE | 2017-08-28 12:07 | Electrocardiograph Report ---
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
--- NOTE | 2017-08-28 16:47 | Event Note ---
Date of Encounter: 08/28/17 Time of Encounter: 16:33 - Cardiology Event Note Device interrogated. No abnormal findings to explain patient's presenting symptoms. Device functioning normally. Will sign off at this time. Please call with questions.
[2017-08-28] MEDS ORDERED: *HR* Warfarin 2 MG TABLET PO ONE (18:00)
[2017-08-29] MEDS: Ipratropium/Albuterol Neb 3 ML IH SCH ×3 (04:02→11:14)
[2017-08-29 04:45] LABS: Prothrombin Time 21.6 Seconds (9.4-12.1)
[2017-08-29 04:50] LABS: Calcium 8.8 mg/dL (8.6-10.8); Potassium 3.9 mEq/L (3.5-4.5)
[2017-08-29] MEDS: Aspirin 81 MG TAB.CHEW PO SCH (08:53)
[2017-08-29] MEDS: Benzonatate 100 MG CAPSULE PO SCH (08:53)
[2017-08-29] MEDS: Furosemide 40 MG/4 ML VIAL IVP SCH (08:54)
[2017-08-29] MEDS ORDERED: *HR* Amiodarone 200 MG TABLET PO SCH (09:00)
[2017-08-29 10:53] VITALS: BP 109/77
--- NOTE | 2017-08-29 13:40 | Discharge Summary ---
Date of Encounter: 08/29/17 Time of Encounter: 14:20 - Discharge Diagnosis (1) Acute on chronic systolic (congestive) heart failure Priority: Primary Status: Acute Comments: per hx. has known ischemic cardiomyopathy with BiV ICD. 08/26/2017 TTE with EF 35%, severe left ventricle systolic dysfunction (unchanged from 08/2016 [facility] TTE) . BNP 5K, CXR with vascular congestion. 08/28/17 device interrogation was no abnormal findings, device functioning normally. He was diuresed with IV Lasix; -4.5 L. He appeared euvolemic and home Lasix was resumed. Strongly encourage dietary and medication compliance. Cardiology followed. Continue home ASA, BB , lasix. Follow-up with cardiology outpatient. (2) Fall Priority: Primary Status: Resolved Comments: on day of presentation. Patient reports that he bent over to roll picker an object became lightheaded upon standing and fell backwards. He did not hit head, no loss of consciousness. Has hematoma to crown of head; no open lacerations. Head CT nonacute. Lives home alone. PT/OT evaluated and recommended continuing HHC. Qualifiers: Encounter type: initial encounter Qualified Code(s): W19.XXXA - Unspecified fall, initial encounter (3) HTN (hypertension) Priority: Primary Status: Chronic Comments: per hx. home BB lowered as blood pressure was soft/borderline. Recommend follow -up with PCP within one week for BP recheck. Qualifiers: Hypertension type: essential hypertension Qualified Code(s): I10 - Essential (primary) hypertension (4) CKD (chronic kidney disease) stage 3, GFR 30-59 ml/min Priority: Secondary Status: Chronic Comments: per hx. Follows with Nephrology. Renal function appears to be at baseline. Recommend follow-up with nephrology outpatient. (5) CVA (cerebral vascular accident) Priority: Secondary Status: Chronic Comments: per hx on 08/2016. With residual right hand weakness, right facial droop and slurred speech. PT/OT consult. Continue home ASA, BB, statin Qualifiers: CVA mechanism: unspecified Qualified Code(s): I63.9 - Cerebral infarction, unspecified (6) Hypothyroidism Priority: Primary Status: Chronic Comments: per hx. TSH 6.7. Free T4 normal. Suspect subclinical hypothyroidism. Cont home levothyroxine. Recommend repeat TSH with PCP in 6-8 weeks. Qualifiers: Hypothyroidism type: unspecified Qualified Code(s): E03.9 - Hypothyroidism , unspecified (7) Paroxysmal atrial fibrillation Priority: Primary Status: Chronic Comments: per hx. Rate controlled. Cont home BB, coumadin, amiodarone. Follow-up with Cardiology outpatient - Discharge Medications Prescriptions: Carvedilol [Coreg] 6.25 mg PO BIDWM #30 tablet Home Medications: Albuterol Sulfate [Albuterol Inhaler] 2 puff IH Q6H PRN 01/19/17 [History] Amiodarone [Cordarone] 200 mg PO HS 01/19/17 [History] Atorvastatin [Lipitor] 40 mg PO HS 01/19/17 [History] Carvedilol [Coreg] 25 mg PO BID 01/19/17 [History] Levothyroxine Sodium [Levo-T] 100 mcg PO QAM 01/19/17 [History] Potassium Chloride [K-Tab ER] 10 meq PO DAILY 01/19/17 [History] Sertraline [Zoloft] 100 mg PO DAILY 01/19/17 [History] Acetaminophen [Tylenol] 325 - 650 mg PO Q4H PRN 01/26/17 [History] Aspirin 81 mg PO DAILY 01/26/17 [History] Ergocalciferol (VITAMIN D2) [Vitamin D2] 50,000 unit PO TH 01/26/17 [History] Melatonin 5 mg PO HS PRN 01/26/17 [History] Multivitamin with Minerals/Lut [Cerovite Senior Tablet] 1 each PO DAILY [History] Nitroglycerin [Nitrostat] 0.4 mg SL Q5M PRN 01/26/17 [History] Quetiapine Fumarate [Seroquel] 200 mg PO HS 01/26/17 [History] Furosemide [Lasix] 40 mg PO DAILY #0 01/30/17 [Rx] Mag Hydrox/Al Hydrox/Simeth [Maalox] 15 ml PO Q6HR PRN #0 udc 01/30/17 [Rx] Ipratropium/Albuterol Neb [Duoneb] 3 ml IH Q6HR #60 vial.neb 08/21/17 [Rx] Warfarin [Coumadin] 1 mg PO SUWEFR 08/26/17 [History] Warfarin [Coumadin] 2 mg PO MOTHSA 08/26/17 [History] Carvedilol [Coreg] 6.25 mg PO BIDWM #30 tablet 08/29/17 [Rx] Allergies/Adverse Reactions: 3 Allergy/AdvReac Type Severity Reaction Status Date / Time No Known Allergies Allergy Verified 08/25/17 15:49 Date of admission: 08/27/17 11:30 Primary care physician: Vince Sanchez MD Consults: 08/28/17 07:18 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 [CONS] Routine Reason for SW Consult: PT recommended HH Discharging clinician: Veronica Elias Anticipated date of discharge: 08/29/17 - Patient Status Disposition: Home Health Service Condition: Good Functional capacity at discharge: uses cane/walker Overall status at discharge: patient is not back to baseline - Discharge Instructions Instructions: Heart Failure (DC), Low Sodium Diet (DC) Follow Up With: [facility] [Provider Group] - 09/20/17 9:15 am Vince Sanchez MD [Primary Care Provider] - 09/05/17 3:00 pm Additional Instructions: Please follow-up with your primary care physician within one to 2 weeks. Please follow-up with cardiology as scheduled. Please call her diamond mounter and make a follow-up appointment within 1-2 weeks after discharge Please have your INR checked in 2-3 days at the anticoagulation clinic. - Diet and Activity Activity: increase activity as tolerated Diet: low fat, low cholesterol, low salt diet Interval History: Seen and examined at bedside. Patient says he had an uneventful night and would like to go home today possible. No chest pain, no shortness of breath. Discussed with him at length the importance of following low salt diet, fluid restriction and monitoring weight at home. Patient verbalizes understanding. Says he has home health care established. He follows with the Coumadin clinic and will have INR checked sometime this week. Hospital course: See assessment and plan for hospital course - Time Spent with Patient Total time spent providing and/or coordinating discharge services: Greater than 30 minutes (38 minutes spent on discharge) - Constitutional Vitals: Temp Pulse Resp BP Pulse Ox 98.4 F 60 16 109/77 95 08/29/17 10:47 08/29/17 10:47 08/29/17 11:15 08/29/17 10:47 08/29/17 11:15 General appearance: Present: cooperative, A&O X 3, no acute distress, answers questions appropriately - Head Head exam: Present: atraumatic, normocephalic - Eye Eye exam: Present: PERRL, conjuntiva pink, sclera anicteric Pupils: Present: PERRL - Neck Neck exam general surgery: Present: supple, trachea midline. Absent: lymphadenopathy - Respiratory Respiratory exam: Present: CTAB. Absent: accessory muscle use, rales, rhonchi, wheezes - Cardiovascular Cardiovascular exam: Present: RRR, +S1, +S2. Absent: diastolic murmur, gallop, rubs, systolic murmur - GI/Abdominal GI/Abdominal exam: Present: normal bowel sounds, soft, no peritoneal signs. Absent: distended, tenderness - Extremities Exam Extremities exam: Present: warm, radial pulses palpable and symmetrical. Absent : calf tenderness, cyanotic, pedal edema - Neurological Exam Neurological exam: Present: CN II-XII intact, oriented X3, no focal deficits, speech deficit. Absent: pronater drift, facial droop Additional comments: chronic slurred speech with right-sided facial droop - Skin Skin exam: Present: dry, intact
--- NOTE | 2017-08-29 14:41 | Physician Discharge Referral ---
Home Health/Hosp Referral Info Transfer to: Home Health Attending Provider: Veronica Elias CNP Provider in Charge Post Discharge: PCP - Diagnosis (1) Acute on chronic systolic (congestive) heart failure Status: Acute (2) Fall Status: Resolved (3) HTN (hypertension) Status: Chronic (4) CKD (chronic kidney disease) stage 3, GFR 30-59 ml/min Status: Chronic (5) CVA (cerebral vascular accident) Status: Chronic (6) Hypothyroidism Status: Chronic (7) Paroxysmal atrial fibrillation Status: Chronic - Respiratory Orders None Smoking Cessation: Smoking cessation has been advised. For more information, call the [place] Tobacco Quit Line at 2-047-QDAL-NOW. - Diet/Nutrition Diet/Nutrition Orders: No Added Salt (ИРИНА), Renal, Cardiac - Activity Activity Orders: Ambulate - Services Needed Following services are medically necessary services: Nursing, Home Health Aide, Physical Therapy, Occupational Therapy - Transfer Medications Prescriptions: Carvedilol [Coreg] 6.25 mg PO BIDWM #30 tablet Home Medications: Albuterol Sulfate [Albuterol Inhaler] 2 puff IH Q6H PRN 01/19/17 [History] Amiodarone [Cordarone] 200 mg PO HS 01/19/17 [History] Atorvastatin [Lipitor] 40 mg PO HS 01/19/17 [History] Carvedilol [Coreg] 25 mg PO BID 01/19/17 [History] Levothyroxine Sodium [Levo-T] 100 mcg PO QAM 01/19/17 [History] Potassium Chloride [K-Tab ER] 10 meq PO DAILY 01/19/17 [History] Sertraline [Zoloft] 100 mg PO DAILY 01/19/17 [History] Acetaminophen [Tylenol] 325 - 650 mg PO Q4H PRN 01/26/17 [History] Aspirin 81 mg PO DAILY 01/26/17 [History] Ergocalciferol (VITAMIN D2) [Vitamin D2] 50,000 unit PO TH 01/26/17 [History] Melatonin 5 mg PO HS PRN 01/26/17 [History] Multivitamin with Minerals/Lut [Cerovite Senior Tablet] 1 each PO DAILY [History] Nitroglycerin [Nitrostat] 0.4 mg SL Q5M PRN 01/26/17 [History] Quetiapine Fumarate [Seroquel] 200 mg PO HS 01/26/17 [History] Furosemide [Lasix] 40 mg PO DAILY #0 01/30/17 [Rx] Mag Hydrox/Al Hydrox/Simeth [Maalox] 15 ml PO Q6HR PRN #0 udc 01/30/17 [Rx] Ipratropium/Albuterol Neb [Duoneb] 3 ml IH Q6HR #60 vial.neb 08/21/17 [Rx] Warfarin [Coumadin] 1 mg PO SUWEFR 08/26/17 [History] Warfarin [Coumadin] 2 mg PO MOTHSA 08/26/17 [History] Carvedilol [Coreg] 6.25 mg PO BIDWM #30 tablet 08/29/17 [Rx] Allergies/Adverse Reactions: 3 Allergy/AdvReac Type Severity Reaction Status Date / Time No Known Allergies Allergy Verified 08/25/17 15:49 Certification: Further, I certify that my clinical findings support that this patient is homebound (i.e. absences from home require considerable and taxing effort and are for medical reasons or mormon services or infrequently or short duration when for other reasons) because: Homebound Reason: Patient requires assistance of a person or device to safely leave home Attestation: My signature below is to certify that this patient is under my care and that I, or nurse practitioner, or a physician's biology research assistant working with me, has a face-to -face encounter with this patient.
[2017-08-29] MEDS ORDERED: *HR* Warfarin 1 MG TABLET PO ONE (18:00)
== END 2017-08-29 15:31 | disposition home health service (06) | DRG 604 ==
LOC: 3BNU 15:04 → EMEROO 15:04 → 3BNU 21:05
PROVIDERS: ADMIT Internal Medicine Hematology & Oncology; ATTEND Registered Nurse

== ENCOUNTER 2018-12-10 15:35 | Inpatient (IN) ==
[2018-12-10] MEDS ORDERED: Ipratropium/Albuterol Neb 3 ML IH ONE (16:02)
--- NOTE | 2018-12-10 16:06 | Emergency Department Note ---
Disposition Clinical Impression: Shortness of breath, COPD (chronic obstructive pulmonary disease) Disposition: Still a Patient Condition: Good Referrals: Vince Sanchez MD [Primary Care Provider] - Forms: ED Satisfaction Letter General Adult HPI - General Chief complaint: ED Shortness of Breath/Dyspnea Stated complaint: BERNARDO Time Seen by Provider: 12/10/18 15:43 Source: patient Limitations: no limitations - History of Present Illness Pain Scale: 0 - Related Data Home Medications Medication Instructions Recorded Confirmed Albuterol Sulfate [Albuterol 2 puff IH Q6H PRN 01/19/17 08/26/17 Inhaler] Amiodarone [Cordarone] 200 mg PO HS 01/19/17 08/26/17 Atorvastatin [Lipitor] 40 mg PO HS 01/19/17 08/26/17 Carvedilol [Coreg] 25 mg PO BID 01/19/17 08/26/17 Levothyroxine Sodium [Levo-T] 100 mcg PO QAM 01/19/17 08/26/17 Potassium Chloride [K-Tab ER] 10 meq PO DAILY 01/19/17 08/26/17 Sertraline [Zoloft] 100 mg PO DAILY 01/19/17 08/26/17 Acetaminophen [Tylenol] 325 - 650 mg PO Q4H PRN 01/26/17 08/26/17 Aspirin 81 mg PO DAILY 01/26/17 08/26/17 Ergocalciferol (VITAMIN D2) 50,000 unit PO TH 01/26/17 08/26/17 [Vitamin D2] Melatonin 5 mg PO HS PRN 01/26/17 08/26/17 Multivitamin with Minerals/Lut 1 each PO DAILY 01/26/17 08/26/17 [Cerovite Senior Tablet] Nitroglycerin [Nitrostat] 0.4 mg SL Q5M PRN 01/26/17 08/26/17 Quetiapine Fumarate [Seroquel] 200 mg PO HS 01/26/17 08/26/17 Warfarin [Coumadin] 1 mg PO SUWEFR 08/26/17 08/26/17 Warfarin [Coumadin] 2 mg PO MOTHSA 08/26/17 08/26/17 Previous Rx's Medication Instructions Recorded Furosemide [Lasix] 40 mg PO DAILY #0 01/30/17 Mag Hydrox/Al Hydrox/Simeth 15 ml PO Q6HR PRN #0 udc 01/30/17 [Maalox] Ipratropium/Albuterol Neb [Duoneb] 3 ml IH Q6HR #60 vial.neb 08/21/17 Carvedilol [Coreg] 6.25 mg PO BIDWM #30 tablet 08/29/17 Allergies Allergy/AdvReac Type Severity Reaction Status Date / Time No Known Allergies Allergy Verified 08/25/17 15:49 Past Medical History - Past Medical History Medical history: Reports: CHF, coronary artery disease, CVA, hepatitis, hyperlipidemia, hypertension, renal disease, thyroid disease, valvular heart disease, other Surgical history: Reports: cholecystectomy, heart valve replacement, AICD, pacemaker Psychiatric history: Reports: no psych history - Social History Smoking Status: Never smoker Smokeless Tobacco Status: No Alcohol use: Reports: none Drug use: Reports: none Physical Exam - General Limitations: no limitations General appearance: alert, in no apparent distress Course Vital Signs Temperature 97.5 F L 12/10/18 15:38 Pulse Rate 65 12/10/18 15:38 Respiratory Rate 14 12/10/18 15:38 Blood Pressure 140/86 12/10/18 15:38 O2 Sat by Pulse Oximetry 100 12/10/18 15:38 Temperature 97.5 F L 12/10/18 15:38 Pulse Rate 75 12/10/18 16:15 Respiratory Rate 18 12/10/18 16:30 Blood Pressure 142/79 12/10/18 16:15 O2 Sat by Pulse Oximetry 100 12/10/18 16:30 Oxygen Delivery Oxygen Delivery Room Air Medical Decision Making - Lab Data Result diagrams: 12/10/18 16:11 12/10/18 16:11 Lab Results 12/10/18 12/10/18 12/10/18 Range/Units 16:11 16:11 16:11 WBC 5.6 (4.3-11.1) K/mcL RBC 3.19 L (4.19-5.50) M/mcL Hgb 10.3 L (12.9-16.9) g/dL Hct 33.2 L (37.5-50.1) % MCV 104.1 H (83.0-100.0) fL MCH 32.3 (28.0-33.3) pg MCHC 31.0 L (31.6-35.5) g/dL RDW 14.6 H (11.5-14.5) % Plt Count 152 (140-400) K/mcL MPV 10.9 (9.4-12.4) fL Immature Gran % 0.5 (0-4) % Seg Neutrophils % 68.8 % Lymphocytes % 15.5 % Monocytes % 8.6 % Eosinophils % 5.9 % Basophils % 0.7 % Neutrophils # 3.9 (1.6-8.9) K/mcL Lymphocytes # 0.9 (0.6-4.6) K/mcL Monocytes # 0.5 (0.0-1.3) K/mcL Eosinophils # 0.3 (0.0-0.6) K/mcL Basophils # 0.0 (0.0-0.2) K/mcL PT (9.4-12.1) Seconds INR Sodium 137 (136-145) mEq/L Potassium 4.4 (3.5-5.1) mEq/L Chloride 105 (98-107) mEq/L Carbon Dioxide 24 (23-29) mEq/L BUN 27 H (6-20) mg/dL Creatinine 2.34 H (0.70-1.30) mg/dL Est GFR ( Amer) 35 L (> 60) Est GFR (Non-Af Amer) 29 L (> 60) BUN/Creatinine Ratio 12 (6-26) Glucose 138 H (70-105) mg/dL Calculated Osmolality 291 (280-300) Calcium 9.0 (8.6-10.3) mg/dL Troponin I < 0.03 (< 0.04) ng/mL B-Natriuretic Peptide 993 H (Less than 100) pg/mL 12/10/18 Range/Units 16:11 WBC (4.3-11.1) K/mcL RBC (4.19-5.50) M/mcL Hgb (12.9-16.9) g/dL Hct (37.5-50.1) % MCV (83.0-100.0) fL MCH (28.0-33.3) pg MCHC (31.6-35.5) g/dL RDW (11.5-14.5) % Plt Count (140-400) K/mcL MPV (9.4-12.4) fL Immature Gran % (0-4) % Seg Neutrophils % % Lymphocytes % % Monocytes % % Eosinophils % % Basophils % % Neutrophils # (1.6-8.9) K/mcL Lymphocytes # (0.6-4.6) K/mcL Monocytes # (0.0-1.3) K/mcL Eosinophils # (0.0-0.6) K/mcL Basophils # (0.0-0.2) K/mcL PT 36.8 H (9.4-12.1) Seconds INR 3.3 Sodium (136-145) mEq/L Potassium (3.5-5.1) mEq/L Chloride (98-107) mEq/L Carbon Dioxide (23-29) mEq/L BUN (6-20) mg/dL Creatinine (0.70-1.30) mg/dL Est GFR ( Amer) (> 60) Est GFR (Non-Af Amer) (> 60) BUN/Creatinine Ratio (6-26) Glucose (70-105) mg/dL Calculated Osmolality (280-300) Calcium (8.6-10.3) mg/dL Troponin I (< 0.04) ng/mL B-Natriuretic Peptide (Less than 100) pg/mL Attestation Statement - Attestation Attestation: I examined this patient and my medical decision-making was reviewed with the Resident Physician. I agree with the documented findings, disposition and treatment plan as described except to the extent set forth below. [id number] time provided Patient with a past history of CVA with hemiparesis presents with dyspnea. He has a known history of COPD. He does not appear in any acute cardiopulmonary distress or my exam. Initial vitals reviewed by me 17:19: Labs, chest x-ray, ECG reviewed by me. The patient has chronic kidney disease and a BNP of 900+ which is improved compared to previous values. He is mildly tachycardic. VQ scan ordered 18:29: Patient will have his care endorsed to the oncoming physician Dr. Romero at 7 PM pending VQ scan.
--- NOTE | 2018-12-10 16:16 | Emergency Department Note ---
Disposition Clinical Impression: Shortness of breath COPD (chronic obstructive pulmonary disease) Qualifiers: COPD type: unspecified COPD Qualified Code(s): J44.9 - Chronic obstructive pulmonary disease, unspecified Disposition: Still a Patient Condition: Good Referrals: Vince Sanchez MD [Primary Care Provider] - Forms: ED Satisfaction Letter General Adult HPI - General Chief complaint: ED Shortness of Breath/Dyspnea Stated complaint: BERNARDO Time Seen by Provider: 12/10/18 15:43 Source: patient Limitations: no limitations Nursing Notes Reviewed: Yes Vital Signs Reviewed: Yes - History of Present Illness HPI Narrative: She is a 57-year-old male with history significant for prior CVA, COPD, aortic valve replacement, biventricular ICD, anticoagulated on Coumadin. Presenting for evaluation of worsening shortness of breath. States that he has been using his home breathing treatments without sufficient relief. Has been having increased shortness of breath for approximately 2 weeks. He denies cough or sputum production. Denies fever, chills, nausea, vomiting, diarrhea. Admits to a residual right side right facial deficit from prior CVA. He does not feel increased weakness. He does admit to increased numbness of his right upper extremity from his distal forearm to his fingertips. She is able to ambulate without assistance and reportedly does live by himself. Pt Subjective Complaint: Shortness of breath Onset (ago): week(s) Pain Scale: 0 - Related Data Home Medications Medication Instructions Recorded Confirmed Albuterol Sulfate [Albuterol 2 puff IH Q6H PRN 01/19/17 08/26/17 Inhaler] Amiodarone [Cordarone] 200 mg PO HS 01/19/17 08/26/17 Atorvastatin [Lipitor] 40 mg PO HS 01/19/17 08/26/17 Carvedilol [Coreg] 25 mg PO BID 01/19/17 08/26/17 Levothyroxine Sodium [Levo-T] 100 mcg PO QAM 01/19/17 08/26/17 Potassium Chloride [K-Tab ER] 10 meq PO DAILY 01/19/17 08/26/17 Sertraline [Zoloft] 100 mg PO DAILY 01/19/17 08/26/17 Acetaminophen [Tylenol] 325 - 650 mg PO Q4H PRN 01/26/17 08/26/17 Aspirin 81 mg PO DAILY 01/26/17 08/26/17 Ergocalciferol (VITAMIN D2) 50,000 unit PO TH 01/26/17 08/26/17 [Vitamin D2] Melatonin 5 mg PO HS PRN 01/26/17 08/26/17 Multivitamin with Minerals/Lut 1 each PO DAILY 01/26/17 08/26/17 [Cerovite Senior Tablet] Nitroglycerin [Nitrostat] 0.4 mg SL Q5M PRN 01/26/17 08/26/17 Quetiapine Fumarate [Seroquel] 200 mg PO HS 01/26/17 08/26/17 Warfarin [Coumadin] 1 mg PO SUWEFR 08/26/17 08/26/17 Warfarin [Coumadin] 2 mg PO MOTHSA 08/26/17 08/26/17 Previous Rx's Medication Instructions Recorded Furosemide [Lasix] 40 mg PO DAILY #0 01/30/17 Mag Hydrox/Al Hydrox/Simeth 15 ml PO Q6HR PRN #0 udc 01/30/17 [Maalox] Ipratropium/Albuterol Neb [Duoneb] 3 ml IH Q6HR #60 vial.neb 08/21/17 Carvedilol [Coreg] 6.25 mg PO BIDWM #30 tablet 08/29/17 Allergies Allergy/AdvReac Type Severity Reaction Status Date / Time No Known Allergies Allergy Verified 08/25/17 15:49 Constitutional: Denies: fever, chills Eyes: Denies: vision change ENT ED: Denies: congestion Cardiovascular: Denies: chest pain, palpitations, syncope Respiratory: Reports: dyspnea, wheezes. Denies: cough, sputum production Gastrointestinal: Denies: abdominal pain, nausea, vomiting, diarrhea Integumentary: Denies: rash Neurological: Denies: headache Endocrine: Reports: fatigue Past Medical History - Past Medical History Source: patient, nursing notes reviewed Medical history: Reports: CHF, coronary artery disease, CVA, hepatitis, hyperlipidemia, hypertension, renal disease, thyroid disease, valvular heart disease, other Surgical history: Reports: cholecystectomy, heart valve replacement, AICD, pacemaker Psychiatric history: Reports: no psych history - Social History Smoking Status: Never smoker Smokeless Tobacco Status: No Alcohol use: Reports: none Drug use: Reports: none Physical Exam - General Limitations: no limitations General appearance: alert, in no apparent distress - Head Head exam: atraumatic, normocephalic - Eye Eye exam: Present: PERRL, EOMI. Absent: scleral icterus, conjunctival injectio n, nystagmus - ENT ENT exam: normal oropharynx, mucous membranes moist - Chest Chest inspection: Present: symmetric chest wall rise - Respiratory Respiratory exam: Present: wheezes, prolonged expiratory phase. Absent: respiratory distress, accessory muscle use - Cardiovascular Cardiovascular exam: Present: other (Mechanical to auscultation). Absent: systolic murmur, diastolic murmur - Abdominal Exam Abdominal exam: Present: soft, Non-Tender, hernia (Incisional hernias and abdominal wall are nontender). Absent: distention, guarding, rebound - Extremities Exam Extremities exam: Absent: pedal edema, calf tenderness - Expanded Upper Extremity Exam Vascular exam: Normal: capillary refill, radial pulse - Neurological Exam Neurological exam: Present: alert, oriented X3, CN II-XII intact - Expanded Neurological Exam Speech: Present: fluid speech Cranial nerves: EOM function (II, III, IV, ): Normal, facial palsy (VII): Abnormal Right (Residual from prior CVA), spinal accessory function (XI): Normal, tongue deviation (XII): Normal Cerebellar function: normal gait Motor strength - LUE: 5/5 Motor strength - RUE: 4/5 (5/5 strength in the right shoulder, biceps, triceps, 4/5 left executive producer strength) Motor strength - LLE: 5/5 Motor strength - RLE: 5/5 Sensory exam upper extremity: light touch: Normal Sensory exam lower extremity: light touch: Normal DTR: bicep (L): 2+, bicep (R): 3+, brachioradialis (L): 2+, brachioradialis (R): 3+, tricep (L): 2+, tricep (R): 3+, patellar (L): 2+, patellar (R): 2+ Coma Scale Eye Opening: Spontaneous Coma Scale Motor Response: Obeys Commands Coma Scale Verbal Response: Oriented Coma Scale Total: 15 - Psychiatric Psychiatric exam: Present: normal mood, flat affect - Skin Skin exam: Present: warm, dry. Absent: rash Course Course Narrative: Patient and with history of COPD, CHF, mechanical valve anticoagulant on Coumadin, and prior CVA. Presenting with increased shortness of breath for past several weeks. Will evaluate with chest x-ray, troponin, EKG, CBC, BMP BNP. Will treat with DuoNeb nebs. Will obtain noncontrast head CT for evaluation of right distal upper extremity numbness/tingling given that patient is anticoagulated. - Reevaluation(s) Reevaluation #1: Patient seen and re-evaluated at the bedside. Patient reports some minimal improvement in shortness of breath with duoneb. Patient initially with heart rate in the 60-70s, Now patient is with mild tachycardia in the low 100s, continue to deny chest pain, may be related to duoneb induced tachycardia. Patient is theraputic on coumadin, however given tachycardia and minimal improvement in shortness of breath will obtain V/Q scan, patient is not a good CTA candidate with gfr of <30 Time: 17:26 Reevaluation #2: Patient seen and re-evaluated at the bedside. No acute changes. Chest xray and C T head without acute abnormalities. Patient going for V/Q scan now. Patient saturating in the 95-100% range on room air during my evaluation. Disposition will be provided by Dr. Sánchez after V/Q Time: 18:09 Vital Signs Temperature 97.5 F L 12/10/18 15:38 Pulse Rate 65 12/10/18 15:38 Respiratory Rate 14 12/10/18 15:38 Blood Pressure 140/86 12/10/18 15:38 O2 Sat by Pulse Oximetry 100 12/10/18 15:38 Temperature 97.5 F L 12/10/18 15:38 Pulse Rate 75 12/10/18 16:15 Respiratory Rate 18 12/10/18 16:30 Blood Pressure 142/79 12/10/18 16:15 O2 Sat by Pulse Oximetry 100 12/10/18 16:30 Oxygen Delivery Oxygen Delivery Room Air Medical Decision Making - Lab Data Result diagrams: 12/10/18 16:11 12/10/18 16:11 Lab Results 12/10/18 12/10/18 12/10/18 Range/Units 16:11 16:11 16:11 WBC 5.6 (4.3-11.1) K/mcL RBC 3.19 L (4.19-5.50) M/mcL Hgb 10.3 L (12.9-16.9) g/dL Hct 33.2 L (37.5-50.1) % MCV 104.1 H (83.0-100.0) fL MCH 32.3 (28.0-33.3) pg MCHC 31.0 L (31.6-35.5) g/dL RDW 14.6 H (11.5-14.5) % Plt Count 152 (140-400) K/mcL MPV 10.9 (9.4-12.4) fL Immature Gran % 0.5 (0-4) % Seg Neutrophils % 68.8 % Lymphocytes % 15.5 % Monocytes % 8.6 % Eosinophils % 5.9 % Basophils % 0.7 % Neutrophils # 3.9 (1.6-8.9) K/mcL Lymphocytes # 0.9 (0.6-4.6) K/mcL Monocytes # 0.5 (0.0-1.3) K/mcL Eosinophils # 0.3 (0.0-0.6) K/mcL Basophils # 0.0 (0.0-0.2) K/mcL PT (9.4-12.1) Seconds INR Sodium 137 (136-145) mEq/L Potassium 4.4 (3.5-5.1) mEq/L Chloride 105 (98-107) mEq/L Carbon Dioxide 24 (23-29) mEq/L BUN 27 H (6-20) mg/dL Creatinine 2.34 H (0.70-1.30) mg/dL Est GFR ( Amer) 35 L (> 60) Est GFR (Non-Af Amer) 29 L (> 60) BUN/Creatinine Ratio 12 (6-26) Glucose 138 H (70-105) mg/dL Calculated Osmolality 291 (280-300) Calcium 9.0 (8.6-10.3) mg/dL Troponin I < 0.03 (< 0.04) ng/mL B-Natriuretic Peptide 993 H (Less than 100) pg/mL 12/10/18 Range/Units 16:11 WBC (4.3-11.1) K/mcL RBC (4.19-5.50) M/mcL Hgb (12.9-16.9) g/dL Hct (37.5-50.1) % MCV (83.0-100.0) fL MCH (28.0-33.3) pg MCHC (31.6-35.5) g/dL RDW (11.5-14.5) % Plt Count (140-400) K/mcL MPV (9.4-12.4) fL Immature Gran % (0-4) % Seg Neutrophils % % Lymphocytes % % Monocytes % % Eosinophils % % Basophils % % Neutrophils # (1.6-8.9) K/mcL Lymphocytes # (0.6-4.6) K/mcL Monocytes # (0.0-1.3) K/mcL Eosinophils # (0.0-0.6) K/mcL Basophils # (0.0-0.2) K/mcL PT 36.8 H (9.4-12.1) Seconds INR 3.3 Sodium (136-145) mEq/L Potassium (3.5-5.1) mEq/L Chloride (98-107) mEq/L Carbon Dioxide (23-29) mEq/L BUN (6-20) mg/dL Creatinine (0.70-1.30) mg/dL Est GFR ( Amer) (> 60) Est GFR (Non-Af Amer) (> 60) BUN/Creatinine Ratio (6-26) Glucose (70-105) mg/dL Calculated Osmolality (280-300) Calcium (8.6-10.3) mg/dL Troponin I (< 0.04) ng/mL B-Natriuretic Peptide (Less than 100) pg/mL - EKG Data EKG #1 Rhythm: other
[2018-12-10 16:33] LABS: Basophils % 0.7 %; Eosinophils # 0.3 K/mcL (0.0-0.6); Eosinophils % 5.9 %; Hematocrit 33.2 % (37.5-50.1); Hemoglobin 10.3 g/dL (12.9-16.9); Immature Granulocytes % 0.5 % (0-4); Lymphocytes # 0.9 K/mcL (0.6-4.6); Lymphocytes % 15.5 %; Mean Corpuscular Hemoglobin 32.3 pg (28.0-33.3); Mean Corpuscular Volume 104.1 fL (83.0-100.0); Mean Platelet Volume 10.9 fL (9.4-12.4); Monocytes # 0.5 K/mcL (0.0-1.3); Monocytes % 8.6 %; Neutrophils # 3.9 K/mcL (1.6-8.9); Platelet Count 152 K/mcL (140-400); Red Blood Count 3.19 M/mcL (4.19-5.50); Red Cell Distribution Width 14.6 % (11.5-14.5); Segmented Neutrophils % 68.8 %
[2018-12-10 16:41] LABS: INR 3.3; Prothrombin Time 36.8 Seconds (9.4-12.1)
[2018-12-10 17:01] LABS: BUN/Creatinine Ratio 12 (6-26); Blood Urea Nitrogen 27 mg/dL (6-20); Carbon Dioxide 24 mEq/L (23-29); Chloride 105 mEq/L (98-107); Glucose 138 mg/dL (70-105); Osmolality,Calculated 291 (280-300); Potassium 4.4 mEq/L (3.5-5.1); Sodium 137 mEq/L (136-145); Troponin I < 0.03 ng/mL (< 0.04); eGFR For Non-African Americans 29 (> 60)
[2018-12-10] MEDS ORDERED: Amiodarone Premix 360 MG/200 ML BAG IVC ONE (20:41)
[2018-12-10] MEDS ORDERED: Naloxone 0.4 MG/ML INJ IVP PRN (23:25)
[2018-12-11] MEDS ORDERED: Melatonin 3 MG TABLET PO PRN (00:39)
[2018-12-11] MEDS ORDERED: Furosemide 20 MG/2 ML VIAL IVP ONE (00:39)
[2018-12-11] MEDS ORDERED: Mag Hydrox/Al Hydrox/Simeth 30 ML UDC PO PRN (00:39)
[2018-12-11] MEDS ORDERED: Nitroglycerin 0.4 MG TAB.SUBL SL PRN (00:39)
--- NOTE | 2018-12-11 00:44 | Internal Med History&Physical ---
Date of Encounter: 12/10/18 Time of Encounter: 23:50 Internal Medicine - H&P: HPI Chief complaint: SOB History of present illness: Mr. Combs is a 57 year old male with a past medical history of heart failure status post Biventricular AICD, CVA, COPD, aortic valve replacement on anticoagulation with Coumadin who presented to the ED due to worsening shortness of breath. Patient states he has been having shortness of breath for the past 2 weeks it has gotten worse over time. Shortness of breath typically occurs with exertion and with conversation. Patient feels like he has put on about 20 pounds in the past 2 weeks. Patient does endorse an increase in the number of pillows he uses when he goes to sleep from one to 3. He is also reported 2 episodes of paroxysmal nocturnal dyspnea. Significant lower extremity edema, however he has noted that his abdomen has become more distended. He does not feel increased weakness and admits to increased numbness of his right upper extremity from his distal forearm to his fingertips lasting for a few minutes before completely resolving. On arrival patient was afebrile, hemodynamically stable saturating at 100% on room air. Patient was noted to be mildly tachycardic. Patient was taken per VQ scan to rule out PE. Scan demonstrated low probability. While in the ED patient developed an abnormal rhythm concerning for atrial fibrillation with a heart rate in the 1 teens to 120s. Cardiology was consulted who recommended starting patient on amiodarone drip and pacemaker interrogation. Cardiology to follow. Past Med Surg Social Fam HX - Past Medical History Medical history: CHF, coronary artery disease, CVA, hepatitis, hyperlipidemia, hypertension, renal disease, thyroid disease, valvular heart disease, other Additional medical history: right sided deficits from CVA August 24, 2016 Psychiatric history: no psych history - Past Surgical History Surgical History: cholecystectomy, heart valve replacement, AICD, pacemaker Additional surgical history: mechanical valve, arm surgery when 3, bladder repair, abdominal fistula - Social History Smoking Status: Never smoker Smokeless Tobacco Status: No Alcohol use: none Drug use: none - Family History Father Living Status: Hx Family Respiratory Disorders: Yes Hx Family Cancer: Yes Internal Medicine - H&P: Meds Albuterol Sulfate [Albuterol Inhaler] 2 puff IH Q6H PRN 01/19/17 [History] Amiodarone [Cordarone] 200 mg PO HS 01/19/17 [History] Atorvastatin [Lipitor] 40 mg PO HS 01/19/17 [History] Carvedilol [Coreg] 25 mg PO DAILY 01/19/17 [History] Levothyroxine Sodium [Levo-T] 100 mcg PO QAM 01/19/17 [History] Potassium Chloride [K-Tab ER] 10 meq PO DAILY 01/19/17 [History] Sertraline [Zoloft] 100 mg PO DAILY 01/19/17 [History] Acetaminophen [Tylenol] 325 - 650 mg PO Q4H PRN 01/26/17 [History] Aspirin 81 mg PO DAILY 01/26/17 [History] Ergocalciferol (VITAMIN D2) [Vitamin D2] 50,000 unit PO TH 01/26/17 [History] Melatonin 5 mg PO HS PRN 01/26/17 [History] Multivitamin with Minerals/Lut [Cerovite Senior Tablet] 1 each PO DAILY 01/26/17 [History] Nitroglycerin [Nitrostat] 0.4 mg SL Q5M PRN 01/26/17 [History] Quetiapine Fumarate [Seroquel] 200 mg PO HS 01/26/17 [History] Mag Hydrox/Al Hydrox/Simeth [Maalox] 15 ml PO Q6HR PRN #0 udc 01/30/17 [Rx] Ipratropium/Albuterol Neb [Duoneb] 3 ml IH Q6HR #60 vial.neb 08/21/17 [Rx] Warfarin [Coumadin] 1 mg PO SUWEFR 08/26/17 [History] Warfarin [Coumadin] 2 mg PO MOTHSA 08/26/17 [History] Carvedilol [Coreg] 6.25 mg PO BIDWM #30 tablet 08/29/17 [Rx] Furosemide [Lasix] 20 mg PO DAILY 12/11/18 [History] Allergy/AdvReac Type Severity Reaction Status Date / Time No Known Allergies Allergy Verified 08/25/17 15:49 All Systems PM: A 10-system review of systems was performed and is negative for pertinent findings except as documented above in the HPI. - Constitutional Constitutional: no chills, no fever(s), no night sweats - EENT Eyes: no change in vision, no discharge, no pain, no photophobia Ears: no ear discharge, no ear pain, no tinnitus Nose, mouth and throat: no dysphagia, no nasal discharge, no neck pain, no sore throat - Cardiovascular Cardiovascular ROS IM: no chest pain, no diaphoresis, no dyspnea, no lighth eadedness, no palpitations, no syncope - Respiratory Respiratory: no cough, no dyspnea, no wheezing, no excessive phlegm production - Gastrointestinal Gastrointestinal: no abdominal pain, no diarrhea, no hematemesis, no he matochezia, no melena, no nausea, no vomiting - Musculoskeletal Musculoskeletal ROS IM: no numbness, no tingling - Integumentary Integumentary IM: no rash, no unusual bruising - Neurological Neurological ROS: no confusion, no convulsions, no focal weakness, no numbness, no tingling, no tremor(s) - Hematologic/Lymphatic Hematologic/Lymphatic: no easy bruising - Constitutional Vitals: Temp Pulse Resp BP Pulse Ox 97.6 F 82 18 134/93 98 12/10/18 23:03 12/10/18 23:03 12/10/18 23:03 12/10/18 23:03 12/10/18 23:03 Exam: General: Alert and oriented 3 lying in bed in no acute distress Skin:Normal color, no rash, no lesions. HEENT:EOM, pupils equal, round and reactive. Cardiovascular:Normal S1 & S2, no rubs, murmurs or gallops. No JVD. Pulse regular. Lungs:Normal breath sounds, no wheezes or crackles. Abdomen:Soft, non-tender, however distended; positive fluid wave Extremities:No deformity, no edema or tenderness, no joint swelling or clubbing. Neurological:Normal cognition and motor skills. Cranial nerves II through XII intact. Pulses:Carotid and radial pulses normal +2. Rest of the physical exam is non contributory Internal Med - H&P Results - Labs CBC & Chem 7: 12/10/18 16:11 12/10/18 16:11 Labs: Short CBC 12/10/18 Range/Units 16:11 WBC 5.6 (4.3-11.1) K/mcL Hgb 10.3 L (12.9-16.9) g/dL Hct 33.2 L (37.5-50.1) % Plt Count 152 (140-400) K/mcL Neutrophils # 3.9 (1.6-8.9) K/mcL BMP 12/10/18 16:11 Sodium 137 Potassium 4.4 Chloride 105 Carbon Dioxide 24 BUN 27 H Creatinine 2.34 H Glucose 138 H Calcium 9.0 Cardiac Enzymes 12/10/18 Range/Units 16:11 Troponin I < 0.03 (< 0.04) ng/mL - Impressions ITS Impressions Chest X-Ray 12/10/18 16:03 IMPRESSION: No acute process. Stable cardiomegaly D/ / Sanjeev Mathias MD / Sanjeev Mathias MD Interpreting Provider: Sanjeev Mathias MD Head CT 12/10/18 16:08 IMPRESSION: No acute intracranial abnormality. D/ / 12/10/2018 18:06:54 Caio Monreal MD / levon Interpreting Provider: Caio Monreal MD Pulmonary Perfusion Imaging 12/10/18 17:17 IMPRESSION: Very low probability for pulmonary embolism. D/ / Benson Grimes MD / Benson Grimes MD Interpreting Provider: Benson Grimes MD - Assessment and Plan (1) Shortness of breath Current Visit: Yes Status: Acute Assessment and plan: Patient presents with worsening shortness of breath both with exertion and conversational for the past 2 weeks with reports of 20 pound weight gain and sym ptoms of orthopnea, paroxysmal nocturnal dyspnea consistent with acute congestive for failure. X-ray shows stable cardiomegaly. Patient currently stable from respiratory standpoint but does desaturate with conversation. -Continue supportive care -We will treat for CHF exacerbation. (2) Acute on chronic heart failure Current Visit: No Status: Acute Assessment and plan: Patient presents with progressive shortness of breath in the setting of reported 20lb weight gain, orthopnea, paroxysmal nocturnal dyspnea. Patient also reports increased in abdominal girth. Patient does have an elevated BNP of 993, though it has been higher in the past. Denies any chest pain. Troponin negative. Echo shows paced rhythm without evidence of ischemia. ECHO performed on 08/26/17; demonstrated the following: -LVEF 30-35%. -Severely dilated left ventricle. -Severe global and segmental L ventricular systolic dysfunction. -Atypical septal motion consistent with paced rhythm. -A device lead was visualized in the RA and RV -Continue strict I's and O's and daily weights -Fluid restricted diet -20 mg of Lasix IV push was given. We will reassess response in the light of patient's creatinine. -We will obtain echocardiogram in the morning -Cardiology to follow. Qualifiers: Qualified Code(s): I50.9 - Heart failure, unspecified (3) Arrhythmia Current Visit: Yes Status: Acute Assessment and plan: Reports of tachycardia with findings of questionable a fibrillation with RVR. I was unable to review the EKG. The EKG I did find shows paced rhythm at 75 bpm. Currently in the 80s. Patient currently on amiodarone drip per cardiology recommendations. AICD to be interrogated. -Cardiology has been consulted -Continue telemetry Qualifiers: Arrhythmia type: atrial fibrillation Qualified Code(s): I48.91 - Unspecified atrial fibrillation (4) Left upper extremity numbness Current Visit: Yes Status: Acute Assessment and plan: Patient reports right upper extremity numbness extending from the fingertips to the shoulder lasting for several minutes and then completely resolving. Patient does have a history of CVA in the past with some residual deficits. On my assessment patient reports no numbness or tingling in his extremity. No other focal neurological deficit this time. CT scan of the head was performed which was negative. -We will continue to monitor. -Neurochecks every 4 hours (5) COPD (chronic obstructive pulmonary disease) Current Visit: Yes Status: Acute Assessment and plan: No evidence of acute exacerbation. We will continue patient's home inhalers. Qualifiers: COPD type: unspecified COPD Qualified Code(s): J44.9 - Chronic obstructive pulmonary disease, unspecified (6) Aortic valve replaced Current Visit: No Status: Chronic Assessment and plan: Continue warfarin. We will check INR in the morning. (7) Biventricular ICD (implantable cardioverter-defibrillator) in place Current Visit: No Status: Chronic Assessment and plan: Pacemaker to be interrogated. Await report. (8) CKD (chronic kidney disease) stage 3, GFR 30-59 ml/min Current Visit: No Status: Chronic Assessment and plan: Patient's creatinine at 2.34 which appears to be near his baseline. - Time Spent With Patient Total time spent is greater than 50% in coordination of care (as documented) at patient's floor/unit and/or counseling patient:
--- NOTE | 2018-12-11 01:43 | Emergency Department Note ---
Disposition Clinical Impression: Shortness of breath COPD (chronic obstructive pulmonary disease) Qualifiers: COPD type: unspecified COPD Qualified Code(s): J44.9 - Chronic obstructive pulmonary disease, unspecified Disposition: Admitted As Inpatient Condition: Good General Adult HPI - General Chief complaint: ED Shortness of Breath/Dyspnea Stated complaint: BERNARDO Time Seen by Provider: 12/10/18 15:43 Source: patient Limitations: no limitations Nursing Notes Reviewed: Yes Vital Signs Reviewed: Yes - History of Present Illness Pain Scale: 0 - Related Data Home Medications Medication Instructions Recorded Confirmed Albuterol Sulfate [Albuterol 2 puff IH Q6H PRN 01/19/17 12/11/18 Inhaler] Amiodarone [Cordarone] 200 mg PO HS 01/19/17 12/11/18 Atorvastatin [Lipitor] 40 mg PO HS 01/19/17 12/11/18 Carvedilol [Coreg] 25 mg PO DAILY 01/19/17 12/11/18 Levothyroxine Sodium [Levo-T] 100 mcg PO QAM 01/19/17 12/11/18 Potassium Chloride [K-Tab ER] 10 meq PO DAILY 01/19/17 12/11/18 Sertraline [Zoloft] 100 mg PO DAILY 01/19/17 12/11/18 Acetaminophen [Tylenol] 325 - 650 mg PO Q4H PRN 01/26/17 12/11/18 Aspirin 81 mg PO DAILY 01/26/17 12/11/18 Ergocalciferol (VITAMIN D2) 50,000 unit PO TH 01/26/17 12/11/18 [Vitamin D2] Melatonin 5 mg PO HS PRN 01/26/17 12/11/18 Multivitamin with Minerals/Lut 1 each PO DAILY 01/26/17 12/11/18 [Cerovite Senior Tablet] Nitroglycerin [Nitrostat] 0.4 mg SL Q5M PRN 01/26/17 12/11/18 Quetiapine Fumarate [Seroquel] 200 mg PO HS 01/26/17 12/11/18 Warfarin [Coumadin] 1 mg PO SUWEFR 08/26/17 08/26/17 Warfarin [Coumadin] 2 mg PO MOTHSA 08/26/17 08/26/17 Furosemide [Lasix] 20 mg PO DAILY 12/11/18 12/11/18 Previous Rx's Medication Instructions Recorded Mag Hydrox/Al Hydrox/Simeth 15 ml PO Q6HR PRN #0 udc 01/30/17 [Maalox] Ipratropium/Albuterol Neb [Duoneb] 3 ml IH Q6HR #60 vial.neb 08/21/17 Carvedilol [Coreg] 6.25 mg PO BIDWM #30 tablet 08/29/17 Allergies Allergy/AdvReac Type Severity Reaction Status Date / Time No Known Allergies Allergy Verified 08/25/17 15:49 Constitutional: Denies: fever, chills Eyes: Denies: vision change ENT ED: Denies: congestion Cardiovascular: Denies: chest pain, palpitations, syncope Respiratory: Reports: dyspnea, wheezes. Denies: cough, sputum production Gastrointestinal: Denies: abdominal pain, nausea, vomiting, diarrhea Integumentary: Denies: rash Neurological: Denies: headache Endocrine: Reports: fatigue Past Medical History - Past Medical History Medical history: Reports: CHF, coronary artery disease, CVA, hepatitis, hyperlipidemia, hypertension, renal disease, thyroid disease, valvular heart disease, other Surgical history: Reports: cholecystectomy, heart valve replacement, AICD, pacemaker Psychiatric history: Reports: no psych history - Social History Smoking Status: Never smoker Smokeless Tobacco Status: No Alcohol use: Reports: none Drug use: Reports: none Physical Exam - General Limitations: no limitations General appearance: alert, in no apparent distress Course Vital Signs Temperature 97.5 F L 12/10/18 15:38 Pulse Rate 65 12/10/18 15:38 Respiratory Rate 14 12/10/18 15:38 Blood Pressure 140/86 12/10/18 15:38 O2 Sat by Pulse Oximetry 100 12/10/18 15:38 Temperature 97.6 F 12/10/18 23:03 Pulse Rate 82 12/10/18 23:03 Respiratory Rate 18 12/10/18 23:03 Blood Pressure 134/93 12/10/18 23:03 O2 Sat by Pulse Oximetry 98 12/10/18 23:03 Oxygen Delivery Oxygen Delivery Room Air Medical Decision Making - [facility] Narrative Medical decision making narrative: 57-year-old male received in sign out at start of my shift pending VQ scan. Patient has a history of mechanical valve and takes Coumadin. VQ scan returned with low probability. During my reevaluation the patient appeared dyspneic with conversation. EKG showed an irregularly irregular tachycardic rhythm. Patient appears to be atrial sensed and V paced on EKG and his shortness of breath likely related to age fibrillation. Patient takes amiodarone at home, I spoke with the academic administrator, Dr. Pascual, regarding the patient's case and presentation. She agreed with the plan for admission to the hospital and recommended amiodarone drip to continue his home medications until he could be reevaluated in the morning. Patient felt comfortable with the plan of action. Patient admitted to the hospitalist. - Medical Records Medical records reviewed: Yes I reviewed the patient's medical records. - Lab Data Lab results reviewed: Yes I reviewed the patient's lab results. Result diagrams: 12/10/18 16:11 12/10/18 16:11 Lab Results 12/10/18 12/10/18 12/10/18 Range/Units 16:11 16:11 16:11 WBC 5.6 (4.3-11.1) K/mcL RBC 3.19 L (4.19-5.50) M/mcL Hgb 10.3 L (12.9-16.9) g/dL Hct 33.2 L (37.5-50.1) % MCV 104.1 H (83.0-100.0) fL MCH 32.3 (28.0-33.3) pg MCHC 31.0 L (31.6-35.5) g/dL RDW 14.6 H (11.5-14.5) % Plt Count 152 (140-400) K/mcL MPV 10.9 (9.4-12.4) fL Immature Gran % 0.5 (0-4) % Seg Neutrophils % 68.8 % Lymphocytes % 15.5 % Monocytes % 8.6 % Eosinophils % 5.9 % Basophils % 0.7 % Neutrophils # 3.9 (1.6-8.9) K/mcL Lymphocytes # 0.9 (0.6-4.6) K/mcL Monocytes # 0.5 (0.0-1.3) K/mcL Eosinophils # 0.3 (0.0-0.6) K/mcL Basophils # 0.0 (0.0-0.2) K/mcL PT (9.4-12.1) Seconds INR Sodium 137 (136-145) mEq/L Potassium 4.4 (3.5-5.1) mEq/L Chloride 105 (98-107) mEq/L Carbon Dioxide 24 (23-29) mEq/L BUN 27 H (6-20) mg/dL Creatinine 2.34 H (0.70-1.30) mg/dL Est GFR ( Amer) 35 L (> 60) Est GFR (Non-Af Amer) 29 L (> 60) BUN/Creatinine Ratio 12 (6-26) Glucose 138 H (70-105) mg/dL Calculated Osmolality 291 (280-300) Calcium 9.0 (8.6-10.3) mg/dL Troponin I < 0.03 (< 0.04) ng/mL B-Natriuretic Peptide 993 H (Less than 100) pg/mL 12/10/18 Range/Units 16:11 WBC (4.3-11.1) K/mcL RBC (4.19-5.50) M/mcL Hgb (12.9-16.9) g/dL Hct (37.5-50.1) % MCV (83.0-100.0) fL MCH (28.0-33.3) pg MCHC (31.6-35.5) g/dL RDW (11.5-14.5) % Plt Count (140-400) K/mcL MPV (9.4-12.4) fL Immature Gran % (0-4) % Seg Neutrophils % % Lymphocytes % % Monocytes % % Eosinophils % % Basophils % % Neutrophils # (1.6-8.9) K/mcL Lymphocytes # (0.6-4.6) K/mcL Monocytes # (0.0-1.3) K/mcL Eosinophils # (0.0-0.6) K/mcL Basophils # (0.0-0.2) K/mcL PT 36.8 H (9.4-12.1) Seconds INR 3.3 Sodium (136-145) mEq/L Potassium (3.5-5.1) mEq/L Chloride (98-107) mEq/L Carbon Dioxide (23-29) mEq/L BUN (6-20) mg/dL Creatinine (0.70-1.30) mg/dL Est GFR ( Amer) (> 60) Est GFR (Non-Af Amer) (> 60) BUN/Creatinine Ratio (6-26) Glucose (70-105) mg/dL Calculated Osmolality (280-300) Calcium (8.6-10.3) mg/dL Troponin I (< 0.04) ng/mL B-Natriuretic Peptide (Less than 100) pg/mL - Radiology Data Radiology results reviewed: Yes I reviewed the patient's radiology results. - EKG Data EKG #1 EKG attestation: Yes I reviewed and interpreted this EKG. EKG results narrative: Wide-complex Tachycardic rhythm that is likely atrial sensed and V paced. Unclear if this is A. fib versus tachycardia with multiple PVCs.
[2018-12-11] MEDS ORDERED: Acetaminophen 325 MG TABLET PO PRN (02:00)
[2018-12-11] MEDS ORDERED: Amiodarone Premix 360 MG/200 ML BAG IVC SCH (03:00)
[2018-12-11] MEDS: Ipratropium/Albuterol Neb 3 ML IH SCH ×4 (03:25→22:30)
[2018-12-11 06:19] LABS: Basophils % 0.6 %; Eosinophils # 0.3 K/mcL (0.0-0.6); Eosinophils % 4.8 %; Hematocrit 30.4 % (37.5-50.1); Hemoglobin 9.7 g/dL (12.9-16.9); Immature Granulocytes % 0.3 % (0-4); Lymphocytes # 1.4 K/mcL (0.6-4.6); Lymphocytes % 19.9 %; Mean Corpuscular HGB Conc 31.9 g/dL (31.6-35.5); Mean Corpuscular Hemoglobin 31.8 pg (28.0-33.3); Mean Corpuscular Volume 99.7 fL (83.0-100.0); Mean Platelet Volume 10.9 fL (9.4-12.4); Monocytes # 0.9 K/mcL (0.0-1.3); Monocytes % 12.3 %; Neutrophils # 4.3 K/mcL (1.6-8.9); Platelet Count 174 K/mcL (140-400); Red Blood Count 3.05 M/mcL (4.19-5.50); Red Cell Distribution Width 14.9 % (11.5-14.5); Segmented Neutrophils % 62.1 %
[2018-12-11 06:24] LABS: Prothrombin Time 34.3 Seconds (9.4-12.1)
[2018-12-11 06:26] LABS: Activated Partial Thrombo Time 42.6 Seconds (26.0-36.0)
[2018-12-11 06:38] LABS: Albumin 3.2 g/dL (3.5-5.7); Albumin/Globulin Ratio 0.8 (1.1-2.2); Bilirubin,Total 1.2 mg/dL (0.3-1.0); Calcium 9.1 mg/dL (8.6-10.3); Globulin 3.9 g/dL (2.4-3.5); Magnesium 1.9 mg/dL (1.6-2.6); Potassium 4.1 mEq/L (3.5-5.1); Total Protein 7.1 g/dL (6.4-8.9)
[2018-12-11] MEDS: Aspirin 81 MG TAB.CHEW PO SCH (07:54)
[2018-12-11] MEDS: Multivit/Ca/Min/Fe/FA 1 TAB TABLET PO SCH (07:54)
--- NOTE | 2018-12-11 07:56 | Internal Med Progress Note ---
Addendum entered and electronically signed by Adam Silva 12/11/18 17:40: Patient was started on 20 mg by mouth daily furosemide Patient actually takes 20 mg by mouth twice a day Order changed to 20 mg by mouth twice a day Original Note: <Adam Silva - Last Filed: 12/11/18 17:24> Hospitalist Progress Note - Encounter Date of Encounter: 12/11/18 Time of Encounter: 07:56 - Subjective Interval History: Mr. Vásquez states his shortness of breath has significantly improved today. He also denies any continued palpitations. He denies chest pain as well. I informed him we would most likely defer to cardiology recommendations. He stated he understood and agreed with the plan of care. - Exam Vitals: Temp Pulse Resp BP Pulse Ox 98 F 60 16 102/70 98 12/11/18 06:51 12/11/18 06:51 12/11/18 06:51 12/11/18 06:51 12/11/18 06:51 Exam: General: Alert and oriented 3 lying in bed in no acute distress Skin:Normal color, no rash, no lesions. HEENT:EOM, pupils equal, round and reactive. Speech impediment likely CVA deficit. Cardiovascular:Normal S1 & S2, mechanical valve click. No JVD. Pulse regular. Lungs:Normal breath sounds, no wheezes or crackles. Abdomen:Soft, non-tender, however distended; positive fluid wave Extremities:No deformity, no edema or tenderness, no joint swelling or clubbing. Neurological:Normal cognition and motor skills. Cranial nerves II through XII intact. Pulses:Carotid and radial pulses normal +2. Rest of the physical exam is non contributory - Assessment and Plan (1) Acute on chronic heart failure Current Visit: Yes Status: Acute Assessment and Plan: Patient presented with shortness of breath, orthopnea, PND, weight gain He has history of systolic heart failure with last known ejection fraction 30- 35% Labs and exam indicated heart failure exacerbation Patient given IV Lasix push, resumed home dose by mouth Lasix 20 mg daily Strict ins and outs, daily weights, fluid restricted diet, pending echocardiogram (2) Aortic valve replaced Current Visit: No Status: Chronic Assessment and Plan: Continue warfarin. (3) CKD (chronic kidney disease) stage 3, GFR 30-59 ml/min Current Visit: No Status: Chronic Assessment and Plan: Patient's creatinine at admission 2.34 which appears to be slightly above baseline Slightly decreased today to 2.3, we will continue to monitor and avoid nephrotoxins (4) Biventricular ICD (implantable cardioverter-defibrillator) in place Current Visit: Yes Status: Chronic Assessment and Plan: Pacemaker to be interrogated. Await report. (5) COPD (chronic obstructive pulmonary disease) Current Visit: No Status: Chronic Assessment and Plan: No evidence of acute exacerbation. We will continue patient's home inhalers. (6) Arrhythmia Current Visit: Yes Status: Resolved Assessment and Plan: Patient was found to be in atrial fibrillation with rapid ventricular rate at admission Cardiology was consulted, amiodarone drip was started Tachycardia resolved overnight, patient stable Cardiology evaluated today, amiodarone drip discontinued, oral amiodarone continued Cardiology planning to interrogate AICD/pacemaker tomorrow Echocardiogram pending We will look out for cardiology recommendations DVT Prophylaxis: Coumadin - Time Spent with Patient Total time spent is greater than 50% in coordination of care (as documented) at patient's floor/unit and/or counseling patient: Internal Medicine: Result - Labs CBC & Chem 7: 12/11/18 05:55 12/11/18 05:55 Labs: Short CBC 12/10/18 12/11/18 Range/Units 16:11 05:55 WBC 5.6 6.9 (4.3-11.1) K/mcL Hgb 10.3 L 9.7 L (12.9-16.9) g/dL Hct 33.2 L 30.4 L (37.5-50.1) % Plt Count 152 174 (140-400) K/mcL Neutrophils # 3.9 4.3 (1.6-8.9) K/mcL BMP 12/10/18 12/11/18 16:11 05:55 Sodium 137 138 Potassium 4.4 4.1 Chloride 105 105 Carbon Dioxide 24 24 BUN 27 H 28 H Creatinine 2.34 H 2.30 H Glucose 138 H 102 Calcium 9.0 9.1 Cardiac Enzymes 12/10/18 Range/Units 16:11 Troponin I < 0.03 (< 0.04) ng/mL Liver Function 12/11/18 Range/Units 05:55 Total Bilirubin 1.2 H (0.3-1.0) mg/dL AST 13 (13-39) Units/L ALT 5 L (7-52) Units/L Alkaline Phosphatase 114 H (34-104) Units/L Albumin 3.2 L (3.5-5.7) g/dL - ABG Interpretation ABG results: PT/INR, D-dimer PT 34.3 Seconds (9.4-12.1) H 12/11/18 05:55 - Impressions Impressions Chest X-Ray 12/10/18 16:03 IMPRESSION: No acute process. Stable cardiomegaly D/ / Sanjeev Mathias MD / Sanjeev Mathias MD Interpreting Provider: Sanjeev Mathias MD Head CT 12/10/18 16:08 IMPRESSION: No acute intracranial abnormality. D/ / 12/10/2018 18:06:54 Caio Monreal MD / levon Interpreting Provider: Caio Monreal MD Pulmonary Perfusion Imaging 12/10/18 17:17 IMPRESSION: Very low probability for pulmonary embolism. D/ / Benson Grimes MD / Benson Grimes MD Interpreting Provider: Benson Grimes MD Consult Discharge Plan - Plan Referrals: Vince aSnchez MD [Primary Care Provider] - <Ashok Manuel - Last Filed: 12/11/18 23:23> Hospitalist Progress Note - Encounter Date of Encounter: 12/11/18 - Exam Vitals: Temp Pulse Resp BP Pulse Ox 98.0 F 60 18 124/85 96 12/11/18 18:29 12/11/18 18:29 12/11/18 22:30 12/11/18 18:29 12/11/18 22:30 - Assessment and Plan (1) Aortic valve replaced Current Visit: No Status: Chronic (2) CKD (chronic kidney disease) stage 3, GFR 30-59 ml/min Current Visit: No Status: Chronic (3) Acute on chronic heart failure Current Visit: Yes Status: Acute (4) Biventricular ICD (implantable cardioverter-defibrillator) in place Current Visit: Yes Status: Chronic (5) COPD (chronic obstructive pulmonary disease) Current Visit: No Status: Chronic (6) Arrhythmia Current Visit: Yes Status: Resolved - Time Spent with Patient Total time spent is greater than 50% in coordination of care (as documented) at patient's floor/unit and/or counseling patient: Internal Medicine: Result - Labs CBC & Chem 7: 12/11/18 05:55 12/11/18 05:55 Labs: Short CBC 12/11/18 Range/Units 05:55 WBC 6.9 (4.3-11.1) K/mcL Hgb 9.7 L (12.9-16.9) g/dL Hct 30.4 L (37.5-50.1) % Plt Count 174 (140-400) K/mcL Neutrophils # 4.3 (1.6-8.9) K/mcL BMP 12/11/18 05:55 Sodium 138 Potassium 4.1 Chloride 105 Carbon Dioxide 24 BUN 28 H Creatinine 2.30 H Glucose 102 Calcium 9.1 Liver Function 12/11/18 Range/Units 05:55 Total Bilirubin 1.2 H (0.3-1.0) mg/dL AST 13 (13-39) Units/L ALT 5 L (7-52) Units/L Alkaline Phosphatase 114 H (34-104) Units/L Albumin 3.2 L (3.5-5.7) g/dL - ABG Interpretation ABG results: PT/INR, D-dimer PT 34.3 Seconds (9.4-12.1) H 12/11/18 05:55 - Attending Attestation I examined this patient and my medical decision-making was reviewed with the Resident Physician. I agree with the documented findings, disposition and treatment plan as described except to the extent set forth below. Does not appear fluid overloaded on my exam today, could be from earlier diuresis. Will resume home Lasix with fluid restriction diet. Still tachycardic. Continue amiodrip with assistance of Cardiology. <Adam Silva - Last Filed: 12/11/18 17:24> (1) Acute on chronic heart failure Qualifiers: Heart failure type: systolic (5) COPD (chronic obstructive pulmonary disease) Qualifiers: COPD type: unspecified COPD Qualified Code(s): J44.9 - Chronic obstructive pulmonary disease, unspecified (6) Arrhythmia Qualifiers: Arrhythmia type: atrial fibrillation Qualified Code(s): I48.91 - Unspecified atrial fibrillation <Ashok Manuel - Last Filed: 12/11/18 23:23> (3) Acute on chronic heart failure Qualifiers: Heart failure type: systolic (5) COPD (chronic obstructive pulmonary disease) Qualifiers: COPD type: unspecified COPD Qualified Code(s): J44.9 - Chronic obstructive pulmonary disease, unspecified (6) Arrhythmia Qualifiers: Arrhythmia type: atrial fibrillation Qualified Code(s): I48.91 - Unspecified atrial fibrillation
[2018-12-11] MEDS ORDERED: Furosemide 20 MG TABLET PO SCH (09:00)
--- NOTE | 2018-12-11 14:12 | Cardiology Consult Note ---
Date of Encounter: 12/11/18 Time of Encounter: 14:25 Assessment and Plan (1) Tachyarrhythmia Current Visit: Yes Status: Resolved As visualized on EKG from ED Was subsequently placed on Amio gtt Resolved at this time. BI-paced rhythm visualized on telemetry Likely due to CHF exacerbation Discontinue amio gtt and resume home po Amio 200mg daily (2) Acute on chronic heart failure Current Visit: Yes Status: Acute Known history of systolic HF with significantly reduced EF (30-35% as seen on echo from 08/26/17) Presented complaining of shortness of breath, reported 20 pound weight gain, lower extremity edema, and orthopnea. Received 20mg IV Lasix followed by another dose of 20mg this morning Continue diuresis at this time Strict I&Os with daily weights Repeat echo as most recent is from 08/2017 Qualifiers: Heart failure type: systolic Qualified Code(s): I50.23 - Acute on chronic systolic (congestive) heart failure (3) Aortic valve replaced Current Visit: Yes Status: Chronic On Coumadin Therapeutic INR Continue Coumadin (4) History of CVA (cerebrovascular accident) Current Visit: Yes Status: Chronic Residual right sided facial droop and mild slurred speech evident on physical exam (5) Biventricular ICD (implantable cardioverter-defibrillator) in place Current Visit: Yes Status: Chronic Will interrogate device Discussion w patient/family: The assessment and plan as outlined above was discussed with the patient and/or family members who expressed understanding and agreement. All questions were answered. Thank you for involving us in the care of your patient. Please call with any questions. History of Present Illness Consult date: 12/11/18 Requesting physician: Ashok Manuel Consult reason: Afib RVR on Amio gtt Chief complaint: shortness of breath History of present illness: Mr. Combs is a 57 year old male with PMH of CAD, CHF with biventricular AICD, CVA in 2016 with residual right sided facial droop and slurred speech, mechanical aortic valve on Coumadin for AC, HTN, and HLD. He originally present ed to the ED with complaints of worsening shortness of breath. He described an episode of shortness of breath, abdominal pain, and palpitations prior to presentation. Denied any shortness of breath. CXR and CT head showed no acute abnormalities. VQ scan showed very low probability for PE. Labs were significant for elevated BNP at 993. Troponin was negative. INR therapeutic at 3.3. Pt was admitted for CHF exacerbation. Was started on amiodarone drip per cardiology recommendations for questionable afib with RVR with ventricular rate of 103. Pt seen and examined at bedside. Pt reports feeling better today. Denies any chest pain, chest pressure, headache, lightheadedness, dizziness, numbness, or tingling. States his lower extremities do not feel as swollen today. Improved shortness of breath. Past Med Surg Social Fam HX - Past Medical History Medical history: CHF, coronary artery disease, CVA, hepatitis, hyperlipidemia, hypertension, renal disease, thyroid disease, valvular heart disease, other Additional medical history: right sided deficits from CVA August 24, 2016 Psychiatric history: no psych history - Past Surgical History Surgical History: cholecystectomy, heart valve replacement, AICD, pacemaker Additional surgical history: mechanical valve, arm surgery when 3, bladder repair, abdominal fistula - Social History Smoking Status: Never smoker Smokeless Tobacco Status: No Alcohol use: none Drug use: none - Family History Father Living Status: Hx Family Respiratory Disorders: Yes Hx Family Cancer: Yes Medications and Allergies Albuterol Sulfate [Albuterol Inhaler] 2 puff IH Q6H PRN 01/19/17 [History] Amiodarone [Cordarone] 200 mg PO HS 01/19/17 [History] Atorvastatin [Lipitor] 40 mg PO HS 01/19/17 [History] Carvedilol [Coreg] 25 mg PO DAILY 01/19/17 [History] Levothyroxine Sodium [Levo-T] 100 mcg PO QAM 01/19/17 [History] Potassium Chloride [K-Tab ER] 10 meq PO DAILY 01/19/17 [History] Sertraline [Zoloft] 100 mg PO DAILY 01/19/17 [History] Acetaminophen [Tylenol] 325 - 650 mg PO Q4H PRN 01/26/17 [History] Aspirin 81 mg PO DAILY 01/26/17 [History] Ergocalciferol (VITAMIN D2) [Vitamin D2] 50,000 unit PO SA 01/26/17 [History] Melatonin 5 mg PO HS PRN 01/26/17 [History] Multivitamin with Minerals/Lut [Cerovite Senior Tablet] 1 each PO DAILY 01/26/17 [History] Nitroglycerin [Nitrostat] 0.4 mg SL Q5M PRN 01/26/17 [History] Mag Hydrox/Al Hydrox/Simeth [Maalox] 15 ml PO Q6HR PRN #0 udc 01/30/17 [Rx] Warfarin [Coumadin] 2 mg PO WESA 08/26/17 [History] Furosemide [Lasix] 20 mg PO BID 12/11/18 [History] Ipratropium/Albuterol Neb [Duoneb] 3 ml IH BID 12/11/18 [History] Quetiapine Fumarate [Seroquel] 100 mg PO HS 12/11/18 [History] Warfarin [Coumadin] 3 mg PO SUMOTUTHFR 12/11/18 [History] Allergy/AdvReac Type Severity Reaction Status Date / Time No Known Allergies Allergy Verified 12/11/18 10:45 All Systems Review: The remainder of the systems were reviewed and are negative - Constitutional Constitutional: no chills, no fever(s), no headache(s), no weakness - EENT Eyes: no blurred vision, no loss of vision - Cardiovascular Cardiovascular: dyspnea at rest, dyspnea on exertion, leg edema, orthopnea, palp itations, no chest pain at rest, no chest pain with exertion, no irregular heart rhythm, no lightheadedness, no syncope - Respiratory Respiratory: cough, dyspnea, no wheezing - Gastrointestinal Gastrointestinal: abdominal pain (described as fullness), no constipation, no diarrhea, no nausea - Genitourinary Genitourinary: no dysuria, no hematuria - Musculoskeletal Musculoskeletal: no arthralgias, no myalgias - Integumentary Integumentary: no erythema, no rash, no unusual bruising - Neurological Neurological: no dizziness, no numbness, no syncope, no tingling - Hematological/Lymphatic Hematologic/Lymphatic: no easy bleeding, no easy bruising Physical Examination Vital Signs, Last 4 Hours Temp Pulse Resp BP Pulse Ox 12/11/18 10:19 97.5 F L 60 17 116/71 95 General: Conversant, No Apparent Distress HEENT: Atraumatic, Normocephaly, Mucus Membranes Moist Neck: No JVD, Normal carotid pulses Cardiac: Reg Rate and Rhythm, Normal S1 and S2, Other (systolic and diastolic murmurs associated with aortic valve prothesis ) Lungs: Normal Breath Sounds, No Wheeze, Rales, Rhonchi Neuro: Alert and responsive, No focal deficits noted Abdomen: Soft, Non-Tender Skin: No rashes noted on visualized skin Musculoskeletal: No Chest Wall Tenderness Extremities: No Clubbing, No Cyanosis, Normal Pulses, Other (trace pitting edema in bilateral LEs ) Results 12/11/18 05:55 12/11/18 05:55 Lab Results 12/10/18 12/10/18 12/10/18 16:11 16:11 16:11 WBC 5.6 Hgb 10.3 L Hct 33.2 L Plt Count 152 INR APTT Sodium 137 Potassium 4.4 Chloride 105 Carbon Dioxide 24 BUN 27 H Creatinine 2.34 H Glucose 138 H Calcium 9.0 Magnesium Total Bilirubin AST ALT Alkaline Phosphatase Troponin I < 0.03 B-Natriuretic Peptide 993 H 12/10/18 12/11/18 12/11/18 16:11 05:55 05:55 WBC 6.9 Hgb 9.7 L Hct 30.4 L Plt Count 174 INR 3.3 3.0 APTT 42.6 H Sodium Potassium Chloride Carbon Dioxide BUN Creatinine Glucose Calcium Magnesium Total Bilirubin AST ALT Alkaline Phosphatase Troponin I B-Natriuretic Peptide 12/11/18 05:55 WBC Hgb Hct Plt Count INR APTT Sodium 138 Potassium 4.1 Chloride 105 Carbon Dioxide 24 BUN 28 H Creatinine 2.30 H Glucose 102 Calcium 9.1 Magnesium 1.9 Total Bilirubin 1.2 H AST 13 ALT 5 L Alkaline Phosphatase 114 H Troponin I B-Natriuretic Peptide - Imaging and Cardiology Chest Xray: report reviewed, image reviewed - EKG Interpretation EKG results cardiology: personally reviewed, ventricular paced rhythm Consult Discharge Plan - Plan Referrals: Vince Sanchez MD [Primary Care Provider] -
[2018-12-11] MEDS ORDERED: Perflutren Lipid Microsphere 1.3 ML in 0.9 % Sodium Chloride 8.7 ML IVP ONE (17:59)
[2018-12-11] MEDS ORDERED: Warfarin perPT PO PRN (18:00)
[2018-12-11] MEDS ORDERED: *HR* Warfarin 3 MG TABLET PO ONE (19:04)
[2018-12-11] MEDS: *HR* Amiodarone 200 MG TABLET PO SCH (20:18)
[2018-12-12] MEDS: Ipratropium/Albuterol Neb 3 ML IH SCH ×4 (03:53→20:57)
[2018-12-12 04:42] LABS: INR 2.9; Prothrombin Time 32.5 Seconds (9.4-12.1)
[2018-12-12 04:54] LABS: Potassium 3.9 mEq/L (3.5-5.1)
[2018-12-12] MEDS: Aspirin 81 MG TAB.CHEW PO SCH (07:54)
[2018-12-12] MEDS: Multivit/Ca/Min/Fe/FA 1 TAB TABLET PO SCH (07:55)
[2018-12-12] MEDS: Furosemide 20 MG TABLET PO SCH ×2 (07:55→16:47)
--- NOTE | 2018-12-12 08:55 | Internal Med Progress Note ---
<Adam Silva - Last Filed: 12/12/18 16:24> Hospitalist Progress Note - Encounter Date of Encounter: 12/12/18 Time of Encounter: 08:55 - Subjective Interval History: No acute events overnight. Patient had no acute complaints today. Discussed with cardiology who informed me device interrogation was successful, no issues. - Exam Vitals: Temp Pulse Resp BP Pulse Ox 97.7 F 60 19 116/76 95 12/12/18 07:10 12/12/18 07:10 12/12/18 07:10 12/12/18 07:10 12/12/18 07:49 Exam: General: Alert and oriented 3 lying in bed in no acute distress Skin:Normal color, no rash, no lesions. HEENT:EOM, pupils equal, round and reactive. Speech impediment likely CVA deficit. Cardiovascular:Normal S1 & S2, mechanical valve click. Positive JVD. Pulse r egular. Lungs:Normal breath sounds, no wheezes , positive crackles. Abdomen:Soft, non-tender, however distended; positive fluid wave Extremities:No deformity, no edema or tenderness, no joint swelling or clubbing. Neurological:Normal cognition and motor skills. Cranial nerves II through XII intact. Pulses:Carotid and radial pulses normal +2. Rest of the physical exam is non contributory - Assessment and Plan (1) Arrhythmia Current Visit: Yes Status: Resolved Assessment and Plan: Patient was found to be in atrial fibrillation with rapid ventricular rate at admission Cardiology was consulted, amiodarone drip was started Tachycardia resolved overnight, patient stable Cardiology evaluated today, amiodarone drip discontinued, oral amiodarone continued Cardiology interrogated AICD/pacemaker, no issues Echocardiogram demonstrated stable decreased ejection fraction 30-35% Echocardiogram significant for new pulmonary hypertension Cardiology signed off, arrhythmia resolved (2) Acute on chronic heart failure Current Visit: Yes Status: Acute Assessment and Plan: Patient presented with shortness of breath, orthopnea, PND, weight gain He has history of systolic heart failure with last known ejection fraction 30- 35% Labs and exam indicated heart failure exacerbation Clinically and physically patient appears to still be fluid overloaded Would likely benefit from aggressive diuresis however renal function is still impaired Continue by mouth Lasix and monitoring Strict ins and outs, daily weights, fluid restricted diet (3) Aortic valve replaced Current Visit: Yes Status: Chronic Assessment and Plan: Continue warfarin. (4) CKD (chronic kidney disease) stage 3, GFR 30-59 ml/min Current Visit: Yes Status: Chronic Assessment and Plan: Patient's creatinine at admission 2.34 which appears to be slightly above baseline Stable at 2.3, we will continue to monitor and avoid nephrotoxins (5) Biventricular ICD (implantable cardioverter-defibrillator) in place Current Visit: Yes Status: Chronic Assessment and Plan: Pacemaker interrogated, stable Code(s): Z95.810 - Presence of automatic (implantable) cardiac defibrillator (6) COPD (chronic obstructive pulmonary disease) Current Visit: No Status: Chronic Assessment and Plan: No evidence of acute exacerbation. We will continue patient's home inhalers. (7) Anemia Current Visit: Yes Status: Chronic Assessment and Plan: Patient presented anemic, he appears to have chronic anemia based on labs from previous admissions He has had slight decreases in hemoglobin during hospital course, no signs of bleeding Differential etiology includes chronic disease, iron deficiency, B12/folate deficiency Labs indicate low iron, B12 and folate normal Will supplement iron and watch for signs of bleeding DVT Prophylaxis: Coumadin - Time Spent with Patient Total time spent is greater than 50% in coordination of care (as documented) at patient's floor/unit and/or counseling patient: Internal Medicine: Result - Labs CBC & Chem 7: 12/12/18 03:49 12/12/18 03:49 Labs: Short CBC 12/12/18 Range/Units 03:49 Hgb 8.8 L (12.9-16.9) g/dL BMP 12/12/18 03:49 Sodium 138 Potassium 3.9 Chloride 105 Carbon Dioxide 25 BUN 29 H Creatinine 2.30 H Glucose 86 Calcium 9.0 - ABG Interpretation ABG results: PT/INR, D-dimer PT 32.5 Seconds (9.4-12.1) H 12/12/18 03:49 Consult Discharge Plan - Plan Referrals: Vince Sanchez MD [Primary Care Provider] - <Jose Ramon Casillas - Last Filed: 12/12/18 19:09> Hospitalist Progress Note - Encounter Date of Encounter: 12/12/18 Internal Medicine: Result - Labs CBC & Chem 7: 12/12/18 03:49 12/12/18 03:49 Labs: Short CBC 12/12/18 Range/Units 03:49 Hgb 8.8 L (12.9-16.9) g/dL BMP 12/12/18 03:49 Sodium 138 Potassium 3.9 Chloride 105 Carbon Dioxide 25 BUN 29 H Creatinine 2.30 H Glucose 86 Calcium 9.0 - ABG Interpretation ABG results: PT/INR, D-dimer PT 32.5 Seconds (9.4-12.1) H 12/12/18 03:49 - Impressions Impressions Echocardiogram 12/11/18 16:20 Impressions: LVEF 30%. Severely dilated left ventricle. Severe global and segmental left ventricular systolic dysfunction. Indeterminate diastolic function. Atypical septal motion consistent with paced rhythm. Mildly dilated right ventricle. Mild right ventricular hypokinesis. Mechanical aortic valve appears well seated in the LVOT. Leaflets were not well visualized. Trace aortic regurgitation. No significant aortic stenosis. Mean gradient 15 mmHg. Mild tricuspid regurgitation. Severe pulmonary hypertension. Estimated RVSP is 60 mmHg. A device lead was visualized in the right atrium and right ventricle. Left Ventricular Wall Motion: Rest Echo Findings The apex, apical inferior, apical anterior, mid anterior, basal anterior, apical septal, mid inferior septal, basal inferior septal, apical lateral, mid anterior lateral, basal anterior lateral, mid anterior septal, mid inferior lateral, basal anterior septal and basal inferior lateral vo were hypokinetic. The mid inferior and basal inferior vo were akinetic. Findings: Study Quality * Technically adequate exam. ECG Findings * Paced rhythm. Left Ventricle * LVEF 30%. * Severely dilated left ventricle. * Severe global and segmental left ventricular systolic dysfunction. * Indeterminate diastolic function. * Atypical septal motion consistent with paced rhythm. Right Ventricle * Mildly dilated right ventricle. * Mild right ventricular hypokinesis. Left Atrium * Moderately dilated left atrium. Right Atrium * Moderately dilated right atrium. Aortic Valve * Mechanical aortic valve appears well seated in the LVOT. Leaflets were not well visualized. * Trace aortic regurgitation. * No significant aortic stenosis. Mean gradient 15 mmHg. Mitral Valve * Mildly thickened mitral valve leaflets. * Mild mitral regurgitation. * No mitral stenosis. Tricuspid Valve * Normal tricuspid valve structure. * Mild tricuspid regurgitation. * Severe pulmonary hypertension. * Estimated RVSP is 60 mmHg. * Estimated RA pressure is 5 mmHg. Pulmonic Valve * Pulmonic valve not well visualized. * Trace pulmonic regurgitation. Aorta * Normally sized aortic root. Pericardium * The pericardium appears normal. IVC * Normal IVC dimensions and inspiratory collapse. Device lead * A device lead was visualized in the right atrium and right ventricle. Pulmonary Artery * Pulmonary artery not well visualized. - Attending Attestation Patient seen and examined independently, including review of objective data including labs. I agree with plan of care as documented above by the resident with the following comments: 57 M w HFrEF 30% who p/w SOB and palpitations, found to be in acute heart failure and A-Fib RVR. Rhythm controlled w amio gtt, now paced at 60 bpm. For volume status, pt does not have peripheral edema however does have +JVD and bibasilar crackles, with TTE showing new severe PH in context of known LV d ysfunction. Does have VIDAL w SCr ~2.3. Will trial increased diuresis with escalation of lasix to 20 IV bid, and reassess in AM. <Adam Silva - Last Filed: 12/12/18 16:24> (1) Arrhythmia Qualifiers: Arrhythmia type: atrial fibrillation Qualified Code(s): I48.91 - Unspecified atrial fibrillation (2) Acute on chronic heart failure Qualifiers: Heart failure type: systolic Qualified Code(s): I50.23 - Acute on chronic systolic (congestive) heart failure (6) COPD (chronic obstructive pulmonary disease) Qualifiers: COPD type: unspecified COPD Qualified Code(s): J44.9 - Chronic obstructive pulmonary disease, unspecified (7) Anemia Qualifiers: Anemia type: unspecified type Qualified Code(s): D64.9 - Anemia, unspecified
[2018-12-12 09:51] LABS: % Iron Saturation 19 % (20-55); Iron 48 mcg/dL (65-175); Transferrin 183 mg/dL (203-362)
[2018-12-12 10:16] LABS: Folate 15.2 ng/mL (3.0-16.0)
--- NOTE | 2018-12-12 11:07 | Cardiology Progress Note ---
Date of Encounter: 12/12/18 Time of Encounter: 10:45 Assessment and Plan (1) Tachyarrhythmia Current Visit: Yes Status: Resolved As visualized on EKG from ED Was subsequently placed on Amio gtt Resolved at this time. BI-paced rhythm visualized on telemetry Likely due to CHF exacerbation Continue home po Amio 200mg daily Checked [place] AICD - device with normal function Cardiology will sign off at this time. Please call with any questions. Thank you for involving us in the care of this patient. (2) Acute on chronic heart failure Current Visit: Yes Status: Acute Known history of systolic HF with significantly reduced EF (30-35% as seen on echo from 08/26/17) Presented complaining of shortness of breath, reported 20 pound weight gain, lower extremity edema, and orthopnea. Received IV Lasix Echo with the following results: - LVEF 30% (grossly unchanged when compared to previous echos) - Severe global and segmental LV systolic dysfunction - Indeterminate diastolic dysfunction - Mildly dilated RV - Mild RV hypokinesis - Severe pulmonary hypertension with estimated RVSP at 60mmHg Only significant change in echo is Pulmonary HTN - likely WHO Group 2 with significant Left sided heart disease Resume home po Lasix regimen Qualifiers: Heart failure type: systolic Qualified Code(s): I50.23 - Acute on chronic systolic (congestive) heart failure (3) Aortic valve replaced Current Visit: Yes Status: Chronic On Coumadin Therapeutic INR Visualized on echo Continue Coumadin (4) History of CVA (cerebrovascular accident) Current Visit: Yes Status: Chronic Residual right sided facial droop and mild slurred speech evident on physical exam (5) Biventricular ICD (implantable cardioverter-defibrillator) in place Current Visit: Yes Status: Chronic Device check ok Discussion w patient/family: The assessment and plan as outlined above was discussed with the patient and/or family members who expressed understanding and agreement. All questions were answered. Thank you for involving us in the care of your patient. Please call with any questions. Subjective Principal diagnosis: CHF exacerbation Interval history: Pt seen and examined at bedside. Remained in sinus bi-paced rhythm with rate of 60 overnight without difficulty. States he feels somewhat better today. Reports improved shortness of breath. Denies any chest pain, chest pressure, palpitations, abdominal pain, nausea, vomiting, headaches, numbness, or tingling. Objective Vital Signs, Last 4 Hours Temp Pulse Resp BP Pulse Ox 12/12/18 10:06 19 95 12/12/18 07:49 95 12/12/18 07:10 97.7 F 60 19 116/76 98 General: Conversant, No Apparent Distress HEENT: Atraumatic, Normocephaly, Mucus Membranes Moist Neck: No JVD, Normal carotid pulses Cardiac: Reg Rate and Rhythm, Normal S1 and S2, Other (audible aortic prothesis ) Lungs: Normal Breath Sounds, No Wheeze, Rales, Rhonchi Neuro: Alert and responsive, No focal deficits noted Abdomen: Soft, Non-Tender Skin: No rashes noted on visualized skin Musculoskeletal: No Chest Wall Tenderness Extremities: No Clubbing, No Cyanosis, No Edema, Normal Pulses Results 12/12/18 03:49 12/12/18 03:49 Lab Results 12/12/18 12/12/18 12/12/18 03:49 03:49 03:49 Hgb 8.8 L INR 2.9 Sodium 138 Potassium 3.9 Chloride 105 Carbon Dioxide 25 BUN 29 H Creatinine 2.30 H Glucose 86 Calcium 9.0 - Imaging and Cardiology Other Results: Telemetry reviewed Consult Discharge Plan - Plan Referrals: Vince Sanchez MD [Primary Care Provider] -
[2018-12-12] MEDS ORDERED: *HR* Warfarin 2 MG TABLET PO ONE (18:00)
[2018-12-12] MEDS: *HR* Amiodarone 200 MG TABLET PO SCH (20:07)
[2018-12-12] MEDS: Furosemide 20 MG/2 ML VIAL IVP SCH (20:18)
[2018-12-13] MEDS ORDERED: Cholecalciferol (D-3) 1,000 UNIT TABLET PO SCH (00:39)
[2018-12-13 03:32] LABS: Basophils % 0.8 %; Eosinophils # 0.3 K/mcL (0.0-0.6); Eosinophils % 5.1 %; Hemoglobin 9.7 g/dL (12.9-16.9); Immature Granulocytes % 0.2 % (0-4); Lymphocytes # 1.4 K/mcL (0.6-4.6); Mean Corpuscular HGB Conc 31.3 g/dL (31.6-35.5); Mean Corpuscular Volume 102.3 fL (83.0-100.0); Mean Platelet Volume 10.9 fL (9.4-12.4); Monocytes # 0.6 K/mcL (0.0-1.3); Neutrophils # 2.6 K/mcL (1.6-8.9); Platelet Count 148 K/mcL (140-400); Red Blood Count 3.03 M/mcL (4.19-5.50); Red Cell Distribution Width 14.7 % (11.5-14.5); Segmented Neutrophils % 52.9 %
[2018-12-13 03:43] LABS: INR 2.9; Prothrombin Time 32.2 Seconds (9.4-12.1)
[2018-12-13 03:47] LABS: Calcium 9.5 mg/dL (8.6-10.3); Potassium 4.1 mEq/L (3.5-5.1)
[2018-12-13] MEDS: Ipratropium/Albuterol Neb 3 ML IH SCH ×2 (04:07→10:57)
--- NOTE | 2018-12-13 07:58 | Internal Med Progress Note ---
Hospitalist Progress Note - Encounter Date of Encounter: 12/13/18 Time of Encounter: 07:58 - Subjective Interval History: Patient has no acute complaints this morning, he states his shortness of breath is significantly improved. He denies chest pain or palpitations. I informed him his fluid status appears to be improving, however his renal function is not. He informs me he sees Dr. Johnson outpatient for nephrology. - Exam Vitals: Temp Pulse Resp BP Pulse Ox 97.6 F 59 18 105/67 97 12/13/18 07:00 12/13/18 07:00 12/13/18 07:00 12/13/18 07:00 12/13/18 07:00 Exam: General: Alert and oriented 3 lying in bed in no acute distress Skin:Normal color, no rash, no lesions. HEENT:EOM, pupils equal, round and reactive. Speech impediment likely CVA deficit. Cardiovascular:Normal S1 & S2, mechanical valve click. negative JVD. Pulse regular. Lungs:Normal breath sounds, no wheezes , positive crackles. Abdomen:Soft, non-tender, obese Extremities:No deformity, no edema or tenderness, no joint swelling or clubbing. Neurological:Normal cognition and motor skills. Cranial nerves II through XII intact. Pulses:Carotid and radial pulses normal +2. Rest of the physical exam is non contributory - Assessment and Plan (1) Acute on chronic heart failure Current Visit: Yes Status: Acute Assessment and Plan: Patient presented with shortness of breath, orthopnea, PND, weight gain He has history of systolic heart failure with last known ejection fraction 30- 35% Labs and exam indicated heart failure exacerbation Has been diuresed with IV BID Lasix Clinically and physically patient appears to be improved Strict ins and outs, daily weights, fluid restricted diet (2) CKD (chronic kidney disease) stage 3, GFR 30-59 ml/min Current Visit: Yes Status: Chronic (3) Arrhythmia Current Visit: Yes Status: Resolved (4) Aortic valve replaced Current Visit: Yes Status: Chronic (5) Biventricular ICD (implantable cardioverter-defibrillator) in place Current Visit: Yes Status: Chronic Code(s): Z95.810 - Presence of automatic (implantable) cardiac defibrillator (6) COPD (chronic obstructive pulmonary disease) Current Visit: No Status: Chronic (7) Anemia Current Visit: Yes Status: Chronic - Time Spent with Patient Total time spent is greater than 50% in coordination of care (as documented) at patient's floor/unit and/or counseling patient: Internal Medicine: Result - Labs CBC & Chem 7: 12/13/18 02:30 12/13/18 02:30 Labs: Short CBC 12/13/18 Range/Units 02:30 WBC 4.9 (4.3-11.1) K/mcL Hgb 9.7 L (12.9-16.9) g/dL Hct 31.0 L (37.5-50.1) % Plt Count 148 (140-400) K/mcL Neutrophils # 2.6 (1.6-8.9) K/mcL BMP 12/13/18 02:30 Sodium 138 Potassium 4.1 Chloride 102 Carbon Dioxide 29 BUN 34 H Creatinine 2.50 H Glucose 81 Calcium 9.5 - ABG Interpretation ABG results: PT/INR, D-dimer PT 32.2 Seconds (9.4-12.1) H 12/13/18 02:30 - Impressions Impressions Echocardiogram 12/11/18 16:20 Impressions: LVEF 30%. Severely dilated left ventricle. Severe global and segmental left ventricular systolic dysfunction. Indeterminate diastolic function. Atypical septal motion consistent with paced rhythm. Mildly dilated right ventricle. Mild right ventricular hypokinesis. Mechanical aortic valve appears well seated in the LVOT. Leaflets were not well visualized. Trace aortic regurgitation. No significant aortic stenosis. Mean gradient 15 mmHg. Mild tricuspid regurgitation. Severe pulmonary hypertension. Estimated RVSP is 60 mmHg. A device lead was visualized in the right atrium and right ventricle. Left Ventricular Wall Motion: Rest Echo Findings The apex, apical inferior, apical anterior, mid anterior, basal anterior, apical septal, mid inferior septal, basal inferior septal, apical lateral, mid anterior lateral, basal anterior lateral, mid anterior septal, mid inferior lateral, basal anterior septal and basal inferior lateral vo were hypokinetic. The mid inferior and basal inferior vo were akinetic. Findings: Study Quality * Technically adequate exam. ECG Findings * Paced rhythm. Left Ventricle * LVEF 30%. * Severely dilated left ventricle. * Severe global and segmental left ventricular systolic dysfunction. * Indeterminate diastolic function. * Atypical septal motion consistent with paced rhythm. Right Ventricle * Mildly dilated right ventricle. * Mild right ventricular hypokinesis. Left Atrium * Moderately dilated left atrium. Right Atrium * Moderately dilated right atrium. Aortic Valve * Mechanical aortic valve appears well seated in the LVOT. Leaflets were not well visualized. * Trace aortic regurgitation. * No significant aortic stenosis. Mean gradient 15 mmHg. Mitral Valve * Mildly thickened mitral valve leaflets. * Mild mitral regurgitation. * No mitral stenosis. Tricuspid Valve * Normal tricuspid valve structure. * Mild tricuspid regurgitation. * Severe pulmonary hypertension. * Estimated RVSP is 60 mmHg. * Estimated RA pressure is 5 mmHg. Pulmonic Valve * Pulmonic valve not well visualized. * Trace pulmonic regurgitation. Aorta * Normally sized aortic root. Pericardium * The pericardium appears normal. IVC * Normal IVC dimensions and inspiratory collapse. Device lead * A device lead was visualized in the right atrium and right ventricle. Pulmonary Artery * Pulmonary artery not well visualized. Chest X-Ray 12/12/18 19:02 IMPRESSION: Mild heart failure, with stable cardiomegaly and mild interstitial pulmonary edema. D/ / Hiren López / Hiren López Interpreting Provider: Hiren López Consult Discharge Plan - Plan Referrals: Vince Sanchez MD [Primary Care Provider] - (1) Acute on chronic heart failure Qualifiers: Heart failure type: systolic Qualified Code(s): I50.23 - Acute on chronic systolic (congestive) heart failure (3) Arrhythmia Qualifiers: Arrhythmia type: atrial fibrillation Qualified Code(s): I48.91 - Unspecified atrial fibrillation (6) COPD (chronic obstructive pulmonary disease) Qualifiers: COPD type: unspecified COPD Qualified Code(s): J44.9 - Chronic obstructive pulmonary disease, unspecified (7) Anemia Qualifiers: Anemia type: unspecified type Qualified Code(s): D64.9 - Anemia, unspecified
[2018-12-13] MEDS: Multivit/Ca/Min/Fe/FA 1 TAB TABLET PO SCH (08:29)
[2018-12-13] MEDS: Aspirin 81 MG TAB.CHEW PO SCH (08:29)
[2018-12-13] MEDS: Furosemide 20 MG/2 ML VIAL IVP SCH (08:30)
[2018-12-13 11:25] VITALS: BP 99/65
--- NOTE | 2018-12-13 11:32 | Discharge Summary ---
<Adam Silva - Last Filed: 12/13/18 19:13> - NOTES TO OUTPATIENT PROVIDER Notes to Outpatient Provider: Mr Combs presented for shortness of breath. He was admitted and treated for AFib RVR, acute on chronic heart failure, and VIDAL on CKD. Patient was started on Amiodarone drip, cardiology evaluated, he was de- escalated to oral amiodarone and HR has remained stable throughout hospital course. Heart failure was treated with IV lasix diuresis. VIDAL was monitored, creatinine remained stable. Stable for discharge on home meds with outpatient cardiology and nephrology follow up. Orders not resulted at time of discharge: Pending orders 12/12/18 16:39 Urine Creatinine 24 Hr [UCHEM] Routine Urine Sodium 24 Hr [UCHEM] Routine Urine Urea Nitrogen 24 Hr [UCHEM] Routine 12/13/18 11:21 Creatinine,Urine [UCHEM] Routine Sodium, Urine [UCHEM] Routine Urea Nitrogen,Urine [UCHEM] Routine 12/14/18 04:00 INR/PT [Prothrombin Time INR] [COAG] AM 0400 Date of Encounter: 12/13/18 Time of Encounter: 11:30 - Discharge Diagnosis (1) Acute on chronic heart failure Priority: Primary Status: Acute Assessment and Plan: Patient had shortness of breath, edema on presentation CXR demonstrated pulmonary edema, BMP elevated Physical exam positive for crackles, JVD Patient was treated with IV/PO lasix, strict Ins and Outs, fluid restriction Labs and clinical condition improved Stable for discharge on home dose PO Lasix Qualifiers: Heart failure type: systolic Qualified Code(s): I50.23 - Acute on chronic systolic (congestive) heart failure (2) CKD (chronic kidney disease) stage 3, GFR 30-59 ml/min Priority: Secondary Status: Chronic Assessment and Plan: Patient's creatinine at admission 2.34 which appears to be slightly above baseline Creatinine remained stable throughout hospital course Nephrology outpatient follow up at discharge (3) Arrhythmia Priority: Secondary Status: Resolved Assessment and Plan: Patient was found to be in atrial fibrillation with rapid ventricular rate at admission Cardiology was consulted, amiodarone drip was started Tachycardia resolved overnight, patient stable Cardiology evaluated today, amiodarone drip discontinued, oral amiodarone continued Cardiology interrogated AICD/pacemaker, no issues Echocardiogram demonstrated stable decreased ejection fraction 30-35% Echocardiogram significant for new pulmonary hypertension Cardiology signed off, arrhythmia resolved Qualifiers: Arrhythmia type: atrial fibrillation Qualified Code(s): I48.91 - Unspecified atrial fibrillation (4) Aortic valve replaced Priority: Secondary Status: Chronic Assessment and Plan: Continue warfarin. (5) Biventricular ICD (implantable cardioverter-defibrillator) in place Priority: Secondary Status: Chronic Assessment and Plan: Pacemaker interrogated, stable Code(s): Z95.810 - Presence of automatic (implantable) cardiac defibrillator (6) COPD (chronic obstructive pulmonary disease) Priority: Secondary Status: Chronic Assessment and Plan: No evidence of acute exacerbation. We will continue patient's home inhalers. Qualifiers: COPD type: unspecified COPD Qualified Code(s): J44.9 - Chronic obstructive pulmonary disease, unspecified (7) Anemia Priority: Secondary Status: Chronic Assessment and Plan: Patient presented anemic, he appears to have chronic anemia based on labs from previous admissions He has had slight decreases in hemoglobin during hospital course, no signs of bleeding Differential etiology includes chronic disease, iron deficiency, B12/folate deficiency Labs indicate low iron, B12 and folate normal Will supplement iron and watch for signs of bleeding Qualifiers: Anemia type: unspecified type Qualified Code(s): D64.9 - Anemia, unspe cified Hospital course: Mr. Combs is a 57 year old male with a past medical history of systolic heart failure with last known EF 30%, CKD, AFib who was admitted and treated for tachyarrhythmia, heart failure exacerbation, and VIDAL on CKD. Patient was treated with IV/PO Amiodarone and Cardiology evaluation for arrhtymia. IV/PO lasix for heart failure. Creatinine remained stable. He was discharged in stabe condition with home meds and iron for chronic anemia. Discharge discussed with: patient - Time Spent with Patient Total time spent providing and/or coordinating discharge services: - Discharge Medications Prescriptions: New Ferrous Sulfate 325 mg PO DAILY@0800 30 Days #30 tablet Continue Carvedilol [Coreg] 25 mg PO DAILY Sertraline [Zoloft] 100 mg PO DAILY Atorvastatin [Lipitor] 40 mg PO HS Amiodarone [Cordarone] 200 mg PO HS Albuterol Sulfate [Albuterol Inhaler] 2 puff IH Q6H PRN PRN Reason: Shortness Of Breath Potassium Chloride [K-Tab ER] 10 meq PO DAILY Levothyroxine Sodium [Levo-T] 100 mcg PO QAM Aspirin 81 mg PO DAILY Nitroglycerin [Nitrostat] 0.4 mg SL Q5M PRN PRN Reason: Chest Pain Multivitamin with Minerals/Lut [Cerovite Senior Tablet] 1 each PO DAILY Melatonin 5 mg PO HS PRN PRN Reason: Insomnia Ergocalciferol (VITAMIN D2) [Vitamin D2] 50,000 unit PO SA Acetaminophen [Tylenol] 325 - 650 mg PO Q4H PRN PRN Reason: Pain/Fever Mag Hydrox/Al Hydrox/Simeth [Maalox] 15 ml PO Q6HR PRN #0 udc PRN Reason: Indigestion Warfarin [Coumadin] 2 mg PO WESA Furosemide [Lasix] 20 mg PO BID Ipratropium/Albuterol Neb [Duoneb] 3 ml IH BID Quetiapine Fumarate [Seroquel] 100 mg PO HS Warfarin [[facility]in] [facility] Medications: Albuterol Sulfate [Albuterol Inhaler] 2 puff IH Q6H PRN 01/19/17 [History] Amiodarone [Cordarone] 200 mg PO HS 01/19/17 [History] Atorvastatin [Lipitor] 40 mg PO HS 01/19/17 [History] Carvedilol [Coreg] 25 mg PO DAILY 01/19/17 [History] Levothyroxine Sodium [Levo-T] 100 mcg PO QAM 01/19/17 [History] Potassium Chloride [K-Tab ER] 10 meq PO DAILY 01/19/17 [History] Sertraline [Zoloft] 100 mg PO DAILY 01/19/17 [History] Acetaminophen [Tylenol] 325 - 650 mg PO Q4H PRN 01/26/17 [History] Aspirin 81 mg PO DAILY 01/26/17 [History] Ergocalciferol (VITAMIN D2) [Vitamin D2] 50,000 unit PO SA 01/26/17 [History] Melatonin 5 mg PO HS PRN 01/26/17 [History] Multivitamin with Minerals/Lut [Cerovite Senior Tablet] 1 each PO DAILY 01/26/17 [History] Nitroglycerin [Nitrostat] 0.4 mg SL Q5M PRN 01/26/17 [History] Mag Hydrox/Al Hydrox/Simeth [Maalox] 15 ml PO Q6HR PRN #0 udc 01/30/17 [Rx] Warfarin [Coumadin] 2 mg PO WESA 08/26/17 [History] Furosemide [Lasix] 20 mg PO BID 12/11/18 [History] Ipratropium/Albuterol Neb [Duoneb] 3 ml IH BID 12/11/18 [History] Quetiapine Fumarate [Seroquel] 100 mg PO HS 12/11/18 [History] Warfarin [Coumadin] 3 mg PO SUMOTUTHFR 12/11/18 [History] Ferrous Sulfate 325 mg PO DAILY@0800 30 Days #30 tablet 12/13/18 [Rx] Allergies/Adverse Reactions: Allergy/AdvReac Type Severity Reaction Status Date / Time No Known Allergies Allergy Verified 12/11/18 10:45 Date of admission: 12/12/18 09:17 Primary care physician: Vince Sanchez MD Consults: 12/11/18 00:49 Consult to Cardiac Rehabilitation-Phase1 [CONS] Routine Comment: Reason for Consult: heart failure Call Completed: Yes Consult to Nurse Navigator [CONS] Routine Comment: Discharging clinician: Adam Silva Anticipated date of discharge: 12/13/18 - Constitutional Vitals: Temp Pulse Resp BP Pulse Ox 97.6 F 59 18 99/65 99 12/13/18 07:00 12/13/18 07:00 12/13/18 11:24 12/13/18 11:24 12/13/18 11:24 Exam: General: Alert and oriented 3 lying in bed in no acute distress Skin:Normal color, no rash, no lesions. HEENT:EOM, pupils equal, round and reactive. Speech impediment likely CVA deficit. Cardiovascular:Normal S1 & S2, mechanical valve click. Positive JVD. Pulse regular. Lungs:Normal breath sounds, no wheezes , mild crackles. Abdomen:Soft, non-tender, obese Extremities:No deformity, no edema or tenderness, no joint swelling or clubbing. Neurological:Normal cognition and motor skills. Cranial nerves II through XII intact. Pulses:Carotid and radial pulses normal +2. Rest of the physical exam is non contributory - Patient Status Disposition: Home Health Service Condition: Good Functional capacity at discharge: independent ambulation Overall status at discharge: patient is progressing back to baseline - Discharge Instructions Instructions: Heart Failure (DC) Follow Up With: Lb Blakely MD [Partnered Physician] - 01/25/19 1:00 pm Vince Sanchez MD [Primary Care Provider] - 12/21/18 10:30 am - Diet and Activity Activity: increase activity as tolerated Diet: low fat, low cholesterol, low salt diet, other (fluid restricted) <Jose Ramon Casillas - Last Filed: 12/13/18 19:29> Date of Encounter: 12/13/18 Date of admission: 12/12/18 09:17 Primary care physician: Vince Sanchez MD Consults: 12/11/18 00:49 Consult to Cardiac Rehabilitation-Phase1 [CONS] Routine Comment: Reason for Consult: heart failure Call Completed: Yes Consult to Nurse Navigator [CONS] Routine Comment: - Attending Attestation Patient seen and examined. I agree with the discharge plan as documented above by the resident. In summary, pt w hx HFrEF 30% and A-Fib, who p/w RVR. Improved with amio gtt and placed on home amio. Noted to be centrally volume overloaded with JVD and bibasilar crackles, improved with diuresis. TTE does note new severe pulmonary HTN. Labs show new Cr baseline ~2.3 for last few months, stable here. Will discharge on home lasix and needs close PCP, Cardio, and Neph follow up. Discharge home as patient able to ambulate independently on my exam. Time spent on discharge: 35 minutes
--- NOTE | 2018-12-13 14:44 | Physician Discharge Referral ---
Home Health/Hosp Referral Info Transfer to: Home Health Attending Provider: Vinny Provider in Charge Post Discharge: PCP - Diagnosis (1) Acute on chronic heart failure Priority: Primary Status: Acute (2) CKD (chronic kidney disease) stage 3, GFR 30-59 ml/min Priority: Secondary Status: Chronic (3) Arrhythmia Priority: Secondary Status: Resolved (4) Aortic valve replaced Priority: Secondary Status: Chronic (5) Biventricular ICD (implantable cardioverter-defibrillator) in place Priority: Secondary Status: Chronic (6) COPD (chronic obstructive pulmonary disease) Priority: Secondary Status: Chronic (7) Anemia Priority: Secondary Status: Chronic - Respiratory Orders Smoking Cessation: Smoking cessation has been advised. For more information, call the [employer] Tobacco Quit Line at 5-301-FHDY-NOW. - Diet/Nutrition Diet/Nutrition Orders: No Added Salt (ИРИНА), Cardiac - Activity Activity Orders: Up ad sonu - Services Needed Following services are medically necessary services: Nursing, Physical Therapy, Occupational Therapy - Transfer Medications Prescriptions: Ferrous Sulfate 325 mg PO DAILY@0800 30 Days #30 tablet Home Medications: Albuterol Sulfate [Albuterol Inhaler] 2 puff IH Q6H PRN 01/19/17 [History] Amiodarone [Cordarone] 200 mg PO HS 01/19/17 [History] Atorvastatin [Lipitor] 40 mg PO HS 01/19/17 [History] Carvedilol [Coreg] 25 mg PO DAILY 01/19/17 [History] Levothyroxine Sodium [Levo-T] 100 mcg PO QAM 01/19/17 [History] Potassium Chloride [K-Tab ER] 10 meq PO DAILY 01/19/17 [History] Sertraline [Zoloft] 100 mg PO DAILY 01/19/17 [History] Acetaminophen [Tylenol] 325 - 650 mg PO Q4H PRN 01/26/17 [History] Aspirin 81 mg PO DAILY 01/26/17 [History] Ergocalciferol (VITAMIN D2) [Vitamin D2] 50,000 unit PO SA 01/26/17 [History] Melatonin 5 mg PO HS PRN 01/26/17 [History] Multivitamin with Minerals/Lut [Cerovite Senior Tablet] 1 each PO DAILY 01/26/17 [History] Nitroglycerin [Nitrostat] 0.4 mg SL Q5M PRN 01/26/17 [History] Mag Hydrox/Al Hydrox/Simeth [Maalox] 15 ml PO Q6HR PRN #0 udc 01/30/17 [Rx] Warfarin [Coumadin] 2 mg PO WESA 08/26/17 [History] Furosemide [Lasix] 20 mg PO BID 12/11/18 [History] Ipratropium/Albuterol Neb [Duoneb] 3 ml IH BID 12/11/18 [History] Quetiapine Fumarate [Seroquel] 100 mg PO HS 12/11/18 [History] Warfarin [Coumadin] 3 mg PO SUMOTUTHFR 12/11/18 [History] Ferrous Sulfate 325 mg PO DAILY@0800 30 Days #30 tablet 12/13/18 [Rx] Allergies/Adverse Reactions: Allergy/AdvReac Type Severity Reaction Status Date / Time No Known Allergies Allergy Verified 12/11/18 10:45 Certification: Further, I certify that my clinical findings support that this patient is homebound (i.e. absences from home require considerable and taxing effort and are for medical reasons or voodoo services or infrequently or short duration when for other reasons) because: Homebound Reason: Severity of cardiac or pulmonary status limits activity to lerance Attestation: My signature below is to certify that this patient is under my care and that I, or nurse practitioner, or a physician's optometric assistant working with me, has a [id number] encounter with this patient.
[2018-12-13 15:19] LABS: Sodium, Urine 90.2 mEq/L
--- NOTE | 2018-12-13 16:27 | Electrocardiograph Report ---
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
[2018-12-13] MEDS ORDERED: Furosemide 20 MG TABLET PO SCH (17:00)
--- NOTE | 2018-12-13 22:35 | Electrocardiograph Report ---
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
== END 2018-12-13 14:37 | disposition home health service (06) | DRG 291 ==
LOC: 2SOUTHHOLD 15:35 → EMEROOARM 15:35 → 2SOUTHHOLD 23:15 → SUATTDRO 12-12 09:17
PROVIDERS: ADMIT Internal Medicine; ATTEND Internal Medicine

== ENCOUNTER 2019-09-19 13:57 | Inpatient (IN) ==
[2019-09-19] MEDS ORDERED: 0.9 % Sodium Chloride 1,000 ML IVC ONE (14:40)
[2019-09-19 15:35] LABS: Basophils % 0.7 %; Eosinophils # 0.2 K/mcL (0.0-0.6); Eosinophils % 2.9 %; Hematocrit 31.2 % (37.5-50.1); Hemoglobin 9.7 g/dL (12.9-16.9); INR 1.9; Immature Granulocytes % 0.4 % (0-4); Lymphocytes # 0.6 K/mcL (0.6-4.6); Lymphocytes % 11.2 %; Mean Corpuscular HGB Conc 31.1 g/dL (31.6-35.5); Mean Corpuscular Hemoglobin 32.3 pg (28.0-33.3); Mean Platelet Volume 11.2 fL (9.4-12.4); Monocytes # 0.6 K/mcL (0.0-1.3); Monocytes % 10.8 %; Platelet Count 213 K/mcL (140-400); Prothrombin Time 21.3 Seconds (9.4-12.1); White Blood Count 5.5 K/mcL (4.3-11.1)
[2019-09-19 15:38] LABS: Activated Partial Thrombo Time 34.2 Seconds (26.0-36.0)
[2019-09-19 15:42] LABS: Albumin 2.7 g/dL (3.5-5.7); Albumin/Globulin Ratio 0.6 (1.1-2.2); Bilirubin,Indirect 1.4 mg/dL (0.0-1.0); Bilirubin,Total 2.4 mg/dL (0.3-1.0); Calcium 9.2 mg/dL (8.6-10.3); Globulin 4.2 g/dL (2.4-3.5); Potassium 4.7 mEq/L (3.5-5.1); Total Protein 6.9 g/dL (6.4-8.9)
[2019-09-19] MEDS ORDERED: Lactulose Oral Soln 20 GM/30 ML UDC PO ONE (16:09)
[2019-09-19] MEDS ORDERED: Furosemide 40 MG/4 ML VIAL IVP ONE (16:11)
[2019-09-19] MEDS ORDERED: Warfarin perPT PO PRN (18:27)
[2019-09-19] MEDS ORDERED: Furosemide 40 MG TABLET PO SCH (18:30)
[2019-09-19] MEDS ORDERED: *HR* Warfarin 3 MG TABLET PO ONE (18:31)
[2019-09-19] MEDS: Melatonin 3 MG TABLET PO PRN (21:45)
[2019-09-19] MEDS: cefTRIAXone 2,000 MG in Water for inj. (sterile) 20 ML IVP SCH (21:46)
[2019-09-19] MEDS: *HR* Amiodarone 200 MG TABLET PO SCH (21:46)
[2019-09-19] MEDS: Lactulose Oral Soln 20 GM/30 ML UDC PO SCH (21:47)
[2019-09-20 05:07] LABS: VBG HCO3 31 mEq/L (21-27); VBG PCO2 46 mmHg (41-51); VBG PH 7.44 pH Units (7.32-7.42); VBG PO2 118 mmHg (25-50)
[2019-09-20 05:10] LABS: Hematocrit 28.5 % (37.5-50.1); Mean Corpuscular HGB Conc 31.6 g/dL (31.6-35.5); Mean Corpuscular Hemoglobin 32.6 pg (28.0-33.3); Mean Corpuscular Volume 103.3 fL (83.0-100.0); Mean Platelet Volume 11.1 fL (9.4-12.4); Platelet Count 176 K/mcL (140-400); Red Blood Count 2.76 M/mcL (4.19-5.50); Red Cell Distribution Width 22.1 % (11.5-14.5); White Blood Count 4.6 K/mcL (4.3-11.1)
[2019-09-20 05:28] LABS: INR 2.1
[2019-09-20 05:30] LABS: Albumin 2.5 g/dL (3.5-5.7); Albumin/Globulin Ratio 0.6 (1.1-2.2); Bilirubin,Direct 0.9 mg/dL (0.0-0.2); Bilirubin,Total 1.9 mg/dL (0.3-1.0); Globulin 4.1 g/dL (2.4-3.5); Potassium 4.4 mEq/L (3.5-5.1); Total Protein 6.6 g/dL (6.4-8.9)
[2019-09-20] MEDS: Aspirin 81 MG TAB.CHEW PO SCH (07:37)
[2019-09-20] MEDS: carvediloL 25 MG TABLET PO SCH (07:37)
[2019-09-20] MEDS: Lactulose Oral Soln 20 GM/30 ML UDC PO SCH ×4 (07:37→20:28)
[2019-09-20] MEDS: Furosemide 40 MG/4 ML VIAL IVP SCH (07:38)
[2019-09-20] MEDS ORDERED: Furosemide 40 MG TABLET PO SCH (08:00)
[2019-09-20] MEDS: Albumin 25% 25gram/100mL 25 GM/100 ML IV.SOLN IVPB SCH ×2 (12:47→14:11)
[2019-09-20] MEDS: Silvasorb 44.4 ML TUBE TP SCH (16:11)
[2019-09-20] MEDS ORDERED: *HR* Warfarin 3 MG TABLET PO ONE (18:00)
[2019-09-20] MEDS: cefTRIAXone 2,000 MG in Water for inj. (sterile) 20 ML IVP SCH (20:28)
[2019-09-20] MEDS: Melatonin 3 MG TABLET PO PRN (20:29)
[2019-09-20] MEDS: *HR* Amiodarone 200 MG TABLET PO SCH (20:29)
[2019-09-21] MEDS: Furosemide 40 MG/4 ML VIAL IVP SCH ×2 (05:33→08:28)
[2019-09-21] MEDS: Aspirin 81 MG TAB.CHEW PO SCH (08:28)
[2019-09-21] MEDS: carvediloL 25 MG TABLET PO SCH (08:28)
[2019-09-21] MEDS: Lactulose Oral Soln 20 GM/30 ML UDC PO SCH ×4 (08:28→22:58)
[2019-09-21] MEDS: Silvasorb 44.4 ML TUBE TP SCH (08:29)
[2019-09-21 13:35] LABS: Hematocrit 30.4 % (37.5-50.1); Hemoglobin 9.8 g/dL (12.9-16.9); Mean Corpuscular HGB Conc 32.2 g/dL (31.6-35.5); Mean Corpuscular Hemoglobin 33.7 pg (28.0-33.3); Mean Corpuscular Volume 104.5 fL (83.0-100.0); Mean Platelet Volume 11.5 fL (9.4-12.4); Platelet Count 151 K/mcL (140-400); Red Blood Count 2.91 M/mcL (4.19-5.50); Red Cell Distribution Width 22.6 % (11.5-14.5); White Blood Count 3.7 K/mcL (4.3-11.1)
[2019-09-21 13:39] LABS: INR 2.4; Prothrombin Time 27.8 Seconds (9.4-12.1)
[2019-09-21 13:59] LABS: Albumin 3.2 g/dL (3.5-5.7); Albumin/Globulin Ratio 0.8 (1.1-2.2); Bilirubin,Indirect 0.8 mg/dL (0.0-1.0); Bilirubin,Total 1.8 mg/dL (0.3-1.0); Calcium 9.6 mg/dL (8.6-10.3); Potassium 3.4 mEq/L (3.5-5.1); Total Protein 7.2 g/dL (6.4-8.9)
[2019-09-21] MEDS ORDERED: *HR* Warfarin 3 MG TABLET PO ONE (18:00)
[2019-09-21] MEDS: cefTRIAXone 2,000 MG in Water for inj. (sterile) 20 ML IVP SCH (18:24)
[2019-09-21] MEDS: Melatonin 3 MG TABLET PO PRN (22:58)
[2019-09-21] MEDS: *HR* Amiodarone 200 MG TABLET PO SCH (22:59)
[2019-09-22] MEDS ORDERED: Furosemide 20 MG TABLET PO SCH (09:00)
[2019-09-22 09:20] LABS: Hematocrit 29.9 % (37.5-50.1); Hemoglobin 9.6 g/dL (12.9-16.9); Mean Corpuscular HGB Conc 32.1 g/dL (31.6-35.5); Mean Corpuscular Hemoglobin 32.7 pg (28.0-33.3); Mean Corpuscular Volume 101.7 fL (83.0-100.0); Mean Platelet Volume 11.3 fL (9.4-12.4); Platelet Count 159 K/mcL (140-400); Red Blood Count 2.94 M/mcL (4.19-5.50); Red Cell Distribution Width 22.5 % (11.5-14.5); White Blood Count 3.4 K/mcL (4.3-11.1)
[2019-09-22 09:32] LABS: INR 2.5; Prothrombin Time 28.2 Seconds (9.4-12.1)
[2019-09-22 09:46] LABS: Albumin 2.9 g/dL (3.5-5.7); Albumin/Globulin Ratio 0.8 (1.1-2.2); Bilirubin,Direct 0.7 mg/dL (0.0-0.2); Bilirubin,Indirect 0.7 mg/dL (0.0-1.0); Bilirubin,Total 1.4 mg/dL (0.3-1.0); Calcium 9.1 mg/dL (8.6-10.3); Globulin 3.8 g/dL (2.4-3.5); Potassium 4.4 mEq/L (3.5-5.1); Total Protein 6.7 g/dL (6.4-8.9)
[2019-09-22] MEDS: Furosemide 40 MG TABLET PO SCH (11:07)
[2019-09-22] MEDS: Silvasorb 44.4 ML TUBE TP SCH (11:07)
[2019-09-22] MEDS: carvediloL 25 MG TABLET PO SCH (11:07)
[2019-09-22] MEDS: Lactulose Oral Soln 20 GM/30 ML UDC PO SCH ×4 (11:07→22:02)
[2019-09-22] MEDS: Aspirin 81 MG TAB.CHEW PO SCH (11:07)
[2019-09-22] MEDS ORDERED: *HR* Warfarin 3 MG TABLET PO ONE (18:00)
[2019-09-22] MEDS: cefTRIAXone 2,000 MG in Water for inj. (sterile) 20 ML IVP SCH (18:38)
[2019-09-22] MEDS: Ondansetron 4 MG/2 ML VIAL IVP PRN (18:42)
[2019-09-22] MEDS: Melatonin 3 MG TABLET PO PRN (22:02)
[2019-09-22] MEDS: *HR* Amiodarone 200 MG TABLET PO SCH (22:03)
[2019-09-23 05:33] LABS: Hematocrit 28.1 % (37.5-50.1); Hemoglobin 8.7 g/dL (12.9-16.9); Mean Corpuscular Hemoglobin 33.2 pg (28.0-33.3); Mean Corpuscular Volume 107.3 fL (83.0-100.0); Mean Platelet Volume 11.4 fL (9.4-12.4); Platelet Count 144 K/mcL (140-400); Red Blood Count 2.62 M/mcL (4.19-5.50); Red Cell Distribution Width 22.5 % (11.5-14.5); White Blood Count 3.5 K/mcL (4.3-11.1)
[2019-09-23 05:38] LABS: INR 2.2; Prothrombin Time 24.9 Seconds (9.4-12.1)
[2019-09-23 05:57] LABS: Albumin 2.6 g/dL (3.5-5.7); Albumin/Globulin Ratio 0.7 (1.1-2.2); Bilirubin,Direct 0.5 mg/dL (0.0-0.2); Bilirubin,Indirect 0.7 mg/dL (0.0-1.0); Bilirubin,Total 1.2 mg/dL (0.3-1.0); Calcium 8.9 mg/dL (8.6-10.3); Globulin 3.6 g/dL (2.4-3.5); Magnesium 1.9 mg/dL (1.6-2.6); Potassium 4.4 mEq/L (3.5-5.1); Total Protein 6.2 g/dL (6.4-8.9)
[2019-09-23] MEDS: Aspirin 81 MG TAB.CHEW PO SCH (09:42)
[2019-09-23] MEDS: Furosemide 40 MG TABLET PO SCH (09:42)
[2019-09-23] MEDS: Silvasorb 44.4 ML TUBE TP SCH (09:42)
[2019-09-23] MEDS: cefTRIAXone 2,000 MG in 0.9 % Sodium Chloride Mini Bag 100 ML IVPB SCH (09:42)
[2019-09-23] MEDS: carvediloL 6.25 MG TABLET PO SCH ×2 (09:42→17:07)
[2019-09-23] MEDS: Lactulose Oral Soln 20 GM/30 ML UDC PO SCH ×4 (09:42→20:18)
[2019-09-23] MEDS ORDERED: *HR* Warfarin 3 MG TABLET PO ONE (18:00)
[2019-09-23] MEDS ORDERED: Warfarin perPT PO PRN (18:00)
[2019-09-23] MEDS: *HR* Amiodarone 200 MG TABLET PO SCH (20:18)
[2019-09-24] MEDS: Ondansetron 4 MG/2 ML VIAL IVP PRN ×2 (00:34→20:34)
[2019-09-24] MEDS: Aspirin 81 MG TAB.CHEW PO SCH (09:59)
[2019-09-24] MEDS: carvediloL 6.25 MG TABLET PO SCH ×2 (09:59→17:42)
[2019-09-24] MEDS: Furosemide 40 MG TABLET PO SCH (09:59)
[2019-09-24] MEDS: Silvasorb 44.4 ML TUBE TP SCH (10:00)
[2019-09-24] MEDS: cefTRIAXone 2,000 MG in 0.9 % Sodium Chloride Mini Bag 100 ML IVPB SCH (10:00)
[2019-09-24] MEDS: Lactulose Oral Soln 20 GM/30 ML UDC PO SCH ×4 (10:00→20:24)
[2019-09-24] MEDS ORDERED: *HR* Warfarin 4 MG TABLET PO ONE (18:00)
[2019-09-24] MEDS: *HR* Amiodarone 200 MG TABLET PO SCH (20:24)
[2019-09-24] MEDS: Melatonin 3 MG TABLET PO PRN (20:30)
[2019-09-25 05:43] LABS: INR 1.9; Prothrombin Time 21.5 Seconds (9.4-12.1)
[2019-09-25 06:00] LABS: Potassium 4.4 mEq/L (3.5-5.1)
[2019-09-25 06:06] LABS: Basophils % 0.8 %; Eosinophils # 0.2 K/mcL (0.0-0.6); Eosinophils % 4.8 %; Hemoglobin 10.1 g/dL (12.9-16.9); Immature Granulocytes % 0.3 % (0-4); Lymphocytes # 0.5 K/mcL (0.6-4.6); Lymphocytes % 13.8 %; Mean Corpuscular HGB Conc 32.6 g/dL (31.6-35.5); Mean Corpuscular Hemoglobin 33.2 pg (28.0-33.3); Mean Platelet Volume 12.6 fL (9.4-12.4); Monocytes # 0.5 K/mcL (0.0-1.3); Neutrophils # 2.4 K/mcL (1.6-8.9); Platelet Count 134 K/mcL (140-400); Red Blood Count 3.04 M/mcL (4.19-5.50); Red Cell Distribution Width 22.2 % (11.5-14.5); Segmented Neutrophils % 66.3 %; White Blood Count 3.6 K/mcL (4.3-11.1)
[2019-09-25] MEDS: Silvasorb 44.4 ML TUBE TP SCH (08:02)
[2019-09-25] MEDS: carvediloL 6.25 MG TABLET PO SCH (08:02)
[2019-09-25] MEDS: Lactulose Oral Soln 20 GM/30 ML UDC PO SCH ×2 (08:03→13:14)
[2019-09-25] MEDS: Aspirin 81 MG TAB.CHEW PO SCH (08:03)
[2019-09-25] MEDS: Furosemide 40 MG TABLET PO SCH (08:03)
[2019-09-25] MEDS: Ondansetron 4 MG/2 ML VIAL IVP PRN (09:59)
[2019-09-25 12:45] VITALS: BP 96/60
[2019-09-25] MEDS ORDERED: *HR* Warfarin 4 MG TABLET PO ONE (18:00)
== END 2019-09-25 17:17 | DRG 291 ==
LOC: 2ANU 13:57 → EMEROOARM 13:57 → SUATTDRO 18:52 → 2ANU 19:05 → SUATTDRO 09-20 12:57
PROVIDERS: ADMIT Internal Medicine; ATTEND Internal Medicine